=== PATIENT | female | born 1960 | race Caucasian/White ===

== ENCOUNTER → 2016-07-10 | Outpatient (CLI) | payer BC ==
--- NOTE | 2016-07-11 07:55 | MAMMOGRAPHY REPORT ---
BILATERAL DIGITAL SCREENING MAMMOGRAM TOMOSYNTHESIS WITH CAD: 07/10/2016 CLINICAL HISTORY: Routine screening. Patient has no complaints. TECHNIQUE: Breast tomosynthesis in addition to standard 2D mammography was performed. Current study was also evaluated with a Computer Aided Detection (CAD) system. COMPARISON: Comparison is made to exams dated: 06/06/2014 mammogram, 06/08/2015 mammogram, 12/10/2013 [place] mogram, 06/09/2013 ultrasound, 06/09/2013 mammogram, and 06/03/2013 mammogram - [facility]. BREAST COMPOSITION: The tissue of both breasts is heterogeneously dense, which may obscure small ma sses. FINDINGS: No suspicious masses, calcifications, or areas of architectural distortion are noted in e ither breast. There has been no significant interval change compared to prior exams. IMPRESSION: ACR BI-RADS CATEGORY 1: NEGATIVE There is no mammographic evidence of malignancy. A 1 year screening mammogram is recommended. The p atient will receive written notification of the results. Approximately 10% of breast cancers are not detected with mammography. A negative mammographic repor t should not delay biopsy if a clinically suggestive mass is present. Machelle Leos M.D. ah/:07/10/2016 16:03:07 Green Chain Worker: Ana KINGSLEY(R)(Jayesh), [facility] letter sent: Normal 1/2 BI-RADS Code: ACR BI-RADS Category 1: Negative
== END | disposition home or self-care (01) ==
LOC: C.MAMM 15:35
PROVIDERS: ATTEND Family Medicine
DX: Z12.31 Encounter for screening mammogram for malignant neoplasm of breast (principal)

== ENCOUNTER → 2017-07-11 | Outpatient (CLI) | payer OTHER ==
--- NOTE | 2017-07-11 15:37 | MAMMOGRAPHY REPORT ---
BILATERAL DIGITAL SCREENING MAMMOGRAM TOMOSYNTHESIS WITH CAD: 07/11/2017 CLINICAL HISTORY: Routine screening. TECHNIQUE: Breast tomosynthesis in addition to standard 2D mammography was performed. Current study was also evaluated with a Computer Aided Detection (CAD) system. COMPARISON: Comparison is made to exams dated: 07/10/2016 mammogram, 06/08/2015 mammogram, 06/06/2014 mamm ogram, 06/03/2013 mammogram, 06/02/2012 mammogram, and 05/29/2011 mammogram - [facility]. BREAST COMPOSITION: The tissue of both breasts is heterogeneously dense, which may obscure small mas ses. FINDINGS: No suspicious masses, calcifications, or areas of architectural distortion are noted in ei ther breast. There has been no significant interval change compared to prior exams. IMPRESSION: ACR BI-RADS CATEGORY 1: NEGATIVE There is no mammographic evidence of malignancy. A 1 year screening mammogram is recommended. The pa tient will receive written notification of the results. Approximately 10% of breast cancers are not detected with mammography. A negative mammographic report should not delay biopsy if a clinically suggestive mass is present. Machelle Leos M.D. /:07/11/2017 15:07:57 Director Oncology: Hai KINGSLEY(Ethan)(Jayesh), [facility] letter sent: Normal 1/2 BI-RADS Code: ACR BI-RADS Category 1: Negative
== END | disposition home or self-care (01) ==
LOC: C.MAMM 14:27
PROVIDERS: ATTEND Family Medicine
DX: Z12.31 Encounter for screening mammogram for malignant neoplasm of breast (principal)

== ENCOUNTER 2019-10-17 10:39 | Inpatient (IN) ==
[2019-10-17] MEDS ORDERED: SODIUM CHLORIDE 0.9% 1000ML 2,000 ML IV ONE (11:42)
[2019-10-17] MEDS ORDERED: ACETAMINOPHEN 500 MG TAB PO STA (11:42)
--- NOTE | 2019-10-17 11:43 | Emergency Department Note ---
Impression & Plan Sepsis, Cough, Fever, Headache, Obstruction of left ureteropelvic junction due to stone ED Provider Note NAME: SAUL KIRKLAND AGE: 59 SEX: F : 1960 ARRIVES VIA: Ambulance INFORMANT: Patient ED PROVIDER(S): Enoch Poole DO CHIEF COMPLAINT: Fever HPI: Patient is a 59-year-old female who presents the ER for fever. Her symptoms started this past Friday with a headache, chills, sore throat and a mild cough. This has been fairly persistent since Friday. She notes is when she noticed the elevation in her temperatures. She discussed with her PCP on Friday and had coronavirus testing which was negative. She denies any belly pain, dysuria, urgency or frequency. Denies any chest pain or shortness of breath. No ear pain. No runny nose. No loss of taste or smell. She has not been exposed to anyone with coronavirus. She [place] No tick bites that she can remember. She does have a cat. No history of Lyme disease. No other exacerbating or remitting factors. She also admits to persistent back pain since Friday. ROS: See above HPI for pertinent positives & negatives. A total of 10 systems reviewed and were otherwise negative. PAST MEDICAL HISTORY:See Below PAST SURGICAL HISTORY:See Below FAMILY HISTORY:See Below SOCIAL HISTORY:See Below HOME MEDICATIONS:See Below ALLERGIES:See Below VITALS:See Below PHYSICAL EXAMINATION: GENERAL: Sitting up in bed, alert, well appearing, well nourished, no distress, non-toxic EYE EXAM: normal conjunctiva. PERRL and EOM's grossly intact. OROPHARYNX: no exudate, no erythema, lips, buccal mucosa, and tongue normal and mucous membranes are moist NECK: supple, no nuchal rigidity, no adenopathy, non-tender LUNGS: Clear to auscultation. Normal chest wall mechanics HEART: no murmurs, S1 normal and S2 normal ABDOMEN: abdomen soft, non-tender, normo-active bowel sounds, no masses, no rebound or guarding. BACK: Back is symmetrical on inspection and there is no deformity, no midline tenderness, no CVA tenderness. SKIN: no rashes and no bruising UPPER EXTREMITIES: upper extremities are grossly normal. LOWER EXTREMITIES: No pitting edema. NEURO EXAM: Normal sensorium, cranial nerves II-XII grossly intact, normal speech, no gross weakness of arms, no gross weakness of legs. MEDICAL DECISION MAKING: Patient is a 59-year-old female who presents the ER for fevers, headache, sore throat and cough with a recent negative COVID. IV was established blood work was obtained. Patient was given IV fluids, IV Rocephin. Labs show a leukopenia at 3.5 thousand. Mild anemia. INR was unremarkable. BMP with a potassium of 3.3. CO2 slightly low at 20. Mild transaminitis. Troponin was detectable but not positive. Pro-Moris was elevated at 1.8. UA does show a clear UTI with nitrites, whites, leukocytes and bacteria. CT of the abdomen pelvis was then performed and showed a stone. Discussed with urology. Discussed with the hospitalist. Patient was taken directly to the OR. Viral panel was initially obtained as I was favoring that this was likely URI. She had no severe pain to suggest that she had a kidney stone. She was fairly stoic. Triage Nursing notes reviewed. Prior medical records reviewed Vital Signs: reviewed and remarkable for fever, tachycardia Differential diagnosis: Differential diagnosis includes etiologies such as sepsis, UTI, pneumonia, metabolic, electrolyte abnormalities, cardiac sources, intracerebral event, toxicologic, neurological, as well as others were entertained. ER treatment provided: See below Diagnostics interpreted by me: ECG: Sinus tachycardia rate of 1 1 Normal axis No PVCs Normal QTC Cardiac Monitoring: An order was placed for continuous cardiac monitoring. The monitor shows a rate of 105 with sinus rhythm. Laboratory studies: As stated above and show below. Imaging studies: CT head was clean. Chest x-ray was unremarkable CT abdomen pelvis shows hydronephrosis with 5 mm stone. Consultation(s): Discussed with [facility] hospitalist Discussed with Dr. Lemus from urology ED COURSE: Procedures: none Critical Care: I have personally spent 32 minutes of critical care time in the direct management of this patient. This includes bedside care, interpretation of di agnostic studies, and testing, discussion with consultants, patient, and family members, and other required patient management activities. This 32 minutes is in excess of all separately billable procedures. 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: No Beliefs That Will Affect Care: None Current Living Situation: Spouse and Family Other Information That Helps Us Care for You: No Feels Safe at Home: Yes Safety Concerns: Feels Safe At This Time Smoking Status: Former smoker Tobacco Type: cigarettes ; Do You Dip or Chew Tobacco: No ; Second Hand Exposure: No ; Hx Alcohol Use: Yes Alcohol type: beer, wine and hard liquor Hx Substance Use: No Allergies Allergies Allergy/AdvReac Type Severity Reaction Status Date / Time No Known Allergies Allergy Verified 05/20/02 19:29 Home Meds Home Medications Medication Instructions Recorded Confirmed acetaminophen [Tylenol Extra 500 mg PO Q6H PRN 10/17/19 10/17/19 Strength] alfalfa 0 mg PO BID 10/17/19 10/17/19 ascorbic acid (vitamin C) [Vitamin 0 mg PO QAM 10/17/19 10/17/19 C] calcium carbonate [Calcium 500] 0 mg PO 10/17/19 10/17/19 cholecalciferol (vitamin D3) 0 mcg PO QAM 10/17/19 10/17/19 [Vitamin D3] cyanocobalamin (vitamin B-12) 0 mcg PO QAM 10/17/19 10/17/19 [Vitamin B-12] fluticasone propionate [Flonase 1 spray INTRANASAL QA 10/17/19 10/17/19 Allergy Relief] losartan 25 mg PO 10/17/19 10/17/19 multivitamin 1 tab PO QA 10/17/19 10/17/19 omega 3-btn-yzu-fish oil [Fish Oil] 1 cap PO 10/17/19 10/17/19 pravastatin 40 mg PO 10/17/19 10/17/19 zinc 50 mg PO QA 10/17/19 10/17/19 Results & Data (ED) Vital Signs Vital Signs - 24 hr 10/17/19 11:05 10/17/19 11:31 10/17/19 12:00 Temperature 39.2 C H Temperature Source Oral Pulse Rate 103 H 100 H Pulse Rate [Apical] Pulse Rate from SpO2 Sensor Pulse Rhythm [Apical] Respiratory Rate 20 25 H Respiratory Effort / Characteristics Respiratory Depth Blood Pressure 122/73 Blood Pressure [Left Arm] Blood Pressure Mean 89 Blood Pressure Mean [Left Arm] Pulse Oximetry 94 95 Oxygen Delivery Method Room Air Room Air Sepsis Recent Fever Within 48 Hours Yes Sepsis New/Unexplained Change in Mental Status No Sepsis Action Taken by Nursing No Action Required 10/17/19 12:42 10/17/19 12:59 10/17/19 13:34 Temperature Temperature Source Pulse Rate 88 Pulse Rate [Apical] 99 H 94 H Pulse Rate from SpO2 Sensor 89 Pulse Rhythm [Apical] Regular Respiratory Rate 18 18 20 Respiratory Effort / Characteristics Non-Labored Spontaneous Respiratory Depth Normal Blood Pressure 123/75 Blood Pressure [Left Arm] 124/71 119/74 Blood Pressure Mean 90 Blood Pressure Mean [Left Arm] 88 89 Pulse Oximetry 95 96 96 Oxygen Delivery Method Room Air Room Air Room Air Sepsis Recent Fever Within 48 Hours Sepsis New/Unexplained Change in Mental Status Sepsis Action Taken by Nursing 10/17/19 14:00 Temperature Temperature Source Pulse Rate Pulse Rate [Apical] 86 Pulse Rate from SpO2 Sensor Pulse Rhythm [Apical] Respiratory Rate 18 Respiratory Effort / Characteristics Respiratory Depth Blood Pressure Blood Pressure [Left Arm] 111/68 Blood Pressure Mean Blood Pressure Mean [Left Arm] 82 Pulse Oximetry 97 Oxygen Delivery Method Room Air Sepsis Recent Fever Within 48 Hours Sepsis New/Unexplained Change in Mental Status Sepsis Action Taken by Nursing Laboratory Data Result diagrams: 10/17/19 11:00 10/17/19 11:00 Lab Results 10/17/19 10/17/19 10/17/19 Range/Units 11:00 11:00 11:00 WBC 3.57 L (4.8-10.8) K/uL RBC 3.83 L (4.2-5.4) M/uL Hgb 11.6 L (12.0-16.0) g/dL Hct 35.6 L (37-47) % MCV 93.0 (80-100) fL MCH 30.3 (25-34) pg MCHC 32.6 (32-36) g/dL RDW Std Deviation 48.6 H (36.4-46.3) fL RDW Coeff of Emmnauelle 14.2 (11.5-14.5) % Plt Count 181 (130-400) K/uL MPV 10.0 (7.4-10.4) fL Immature Gran % (Auto) 2.5 % Neut % (Auto) 85.1 % Lymph % (Auto) 8.7 % [place] % (Auto) 2.8 % Eos % (Auto) 0.6 % Baso % (Auto) 0.3 % Neut # (Auto) 3.04 (1.4-6.5) K/uL Lymph # (Auto) 0.31 L (1.2-3.4) K/uL [place] # (Auto) 0.10 L (0.11-0.59) K/uL Eos # (Auto) 0.02 (0-0.5) K/uL Baso # (Auto) 0.01 (0-0.2) K/uL Immature Gran # (Auto) 0.09 H (0.00-0.02) K/uL Dohle Bodies 1+ PT 11.4 (9.0-12.0) Seconds INR 1.1 (0.9-1.1) APTT 27.7 (21.0-31.0) Seconds PTT Ratio 1.0 Sodium 138 (136-145) mmol/L Potassium 3.3 L (3.5-5.1) mmol/L Chloride 110 H (98-107) mmol/L Carbon Dioxide 20 L (21-32) mmol/L Anion Gap 8.0 (3-11) BUN 17 (7-18) mg/dl Creatinine 1.00 (0.6-1.2) mg/dl Est Cr Clr Drug Dosing 73.5 ml/min Est GFR ( Amer) 72.4 Est GFR (Non-Af Amer) 62.5 BUN/Creatinine Ratio 16.9 (10-20) Glucose 109 H (70-99) mg/dl Lactate (0.4-2.0) mmol/L Calcium 8.3 L (8.5-10.1) mg/dl Magnesium 1.6 L (1.8-2.4) mg/dl Total Bilirubin 0.7 (0.2-1) mg/dl AST 77 H (15-37) U/L ALT 105 H (12-78) U/L Alkaline Phosphatase 199 H (45-117) U/L Troponin I 0.038 (0-0.045) ng/ml Total Protein 6.8 (6.4-8.2) gm/dl Albumin 2.6 L (3.4-5.0) gm/dl Globulin 4.2 H (2.5-4.0) gm/dl Albumin/Globulin Ratio 0.6 L (0.9-2) Procalcitonin (0-0.5) ng/ml Urine Color Urine Appearance (Clear) Urine pH (4.5-7.5) Ur Specific [place] (1.000-1.030) Urine Protein (Negative) Urine Glucose (UA) (Negative) Urine Ketones (Negative) Urine Blood (Negative) Urine Nitrite (Negative) Urine Bilirubin (Negative) Urine Urobilinogen (Negative) Ur Leukocyte Esterase (Negative) Urine WBC (Auto) (0-5) /hpf Urine RBC (Auto) (0-4) /hpf U Hyaline Cast (Auto) (0-5) /lpf U Epithel Cells (Auto) (0-5) /lpf Urine Bacteria (Auto) (Negative) Adenovirus (PCR) (NotDetected) Anaplasma Smear See Comment B. pertussis DNA (PCR) (NotDetected) B.parapertussis DNA PCR (NotDetected) Lyme Disease IgG Ab (Negative) Lyme Disease IgM Ab (Negative) C. pneumoniae DNA (PCR) (NotDetected) Coronavirus OC43 (PCR) (NotDetected) Coronavirus HKU1 (PCR) (NotDetected) Coronavirus 229E (PCR) (NotDetected) Coronavirus NL63 (PCR) (NotDetected) Human Metapneumovir PCR (NotDetected) Influenza Type A (PCR) (NotDetected) Influenza Type B (PCR) (NotDetected) M. pneumoniae (PCR) (NotDetected) Parainfluenza 1 (PCR) (NotDetected) Parainfluenza 2 (PCR) (NotDetected) Parainfluenza 3 (PCR) (NotDetected) Parainfluenza 4 (PCR) (NotDetected) RSV (PCR) (NotDetected) Entero/Rhino (PCR) (NotDetected) 10/17/19 10/17/19 10/17/19 Range/Units 11:00 12:00 12:36 WBC (4.8-10.8) K/uL RBC (4.2-5.4) M/uL Hgb (12.0-16.0) g/dL Hct (37-47) % MCV (80-100) fL MCH (25-34) pg MCHC (32-36) g/dL RDW Std Deviation (36.4-46.3) fL RDW Coeff of Emmanuelle (11.5-14.5) % Plt Count (130-400) K/uL MPV (7.4-10.4) fL Immature Gran % (Auto) % Neut % (Auto) % Lymph % (Auto) % [place] % (Auto) % Eos % (Auto) % Baso % (Auto) % Neut # (Auto) (1.4-6.5) K/uL Lymph # (Auto) (1.2-3.4) K/uL [place] # (Auto) (0.11-0.59) K/uL Eos # (Auto) (0-0.5) K/uL Baso # (Auto) (0-0.2) K/uL Immature Gran # (Auto) (0.00-0.02) K/uL Dohle Bodies PT (9.0-12.0) Seconds INR (0.9-1.1) APTT (21.0-31.0) Seconds PTT Ratio Sodium (136-145) mmol/L Potassium (3.5-5.1) mmol/L Chloride (98-107) mmol/L Carbon Dioxide (21-32) mmol/L Anion Gap (3-11) BUN (7-18) mg/dl Creatinine (0.6-1.2) mg/dl Est Cr Clr Drug Dosing ml/min Est GFR ( Amer) Est GFR (Non-Af Amer) BUN/Creatinine Ratio (10-20) Glucose (70-99) mg/dl Lactate 1.1 (0.4-2.0) mmol/L Calcium (8.5-10.1) mg/dl Magnesium (1.8-2.4) mg/dl Total Bilirubin (0.2-1) mg/dl AST (15-37) U/L ALT (12-78) U/L Alkaline Phosphatase (45-117) U/L Troponin I (0-0.045) ng/ml Total Protein (6.4-8.2) gm/dl Albumin (3.4-5.0) gm/dl Globulin (2.5-4.0) gm/dl Albumin/Globulin Ratio (0.9-2) Procalcitonin 1.81 H (0-0.5) ng/ml Urine Color Urine Appearance (Clear) Urine pH (4.5-7.5) Ur Specific [place] (1.000-1.030) Urine Protein (Negative) Urine Glucose (UA) (Negative) Urine Ketones (Negative) Urine Blood (Negative) Urine Nitrite (Negative) Urine Bilirubin (Negative) Urine Urobilinogen (Negative) Ur Leukocyte Esterase (Negative) Urine WBC (Auto) (0-5) /hpf Urine RBC (Auto) (0-4) /hpf U Hyaline Cast (Auto) (0-5) /lpf U Epithel Cells (Auto) (0-5) /lpf Urine Bacteria (Auto) (Negative) Adenovirus (PCR) Not Detected (NotDetected) Anaplasma Smear B. pertussis DNA (PCR) Not Detected (NotDetected) B.parapertussis DNA PCR Not Detected (NotDetected) Lyme Disease IgG Ab Negative (Negative) Lyme Disease IgM Ab Negative (Negative) C. pneumoniae DNA (PCR) Not Detected (NotDetected) Coronavirus OC43 (PCR) Not Detected (NotDetected) Coronavirus HKU1 (PCR) Not Detected (NotDetected) Coronavirus 229E (PCR) Not Detected (NotDetected) Coronavirus NL63 (PCR) Not Detected (NotDetected) Human Metapneumovir PCR Not Detected (NotDetected) Influenza Type A (PCR) Not Detected (NotDetected) Influenza Type B (PCR) Not Detected (NotDetected) M. pneumoniae (PCR) Not Detected (NotDetected) Parainfluenza 1 (PCR) Not Detected (NotDetected) Parainfluenza 2 (PCR) Not Detected (NotDetected) Parainfluenza 3 (PCR) Not Detected (NotDetected) Parainfluenza 4 (PCR) Not Detected (NotDetected) RSV (PCR) Not Detected (NotDetected) Entero/Rhino (PCR) Not Detected (NotDetected) 10/17/19 Range/Units 12:50 WBC (4.8-10.8) K/uL RBC (4.2-5.4) M/uL Hgb (12.0-16.0) g/dL Hct (37-47) % MCV (80-100) fL MCH (25-34) pg MCHC (32-36) g/dL RDW Std Deviation (36.4-46.3) fL RDW Coeff of Emmanuelle (11.5-14.5) % Plt Count (130-400) K/uL MPV (7.4-10.4) fL Immature Gran % (Auto) % Neut % (Auto) % Lymph % (Auto) % [place] % (Auto) % Eos % (Auto) % Baso % (Auto) % Neut # (Auto) (1.4-6.5) K/uL Lymph # (Auto) (1.2-3.4) K/uL [place] # (Auto) (0.11-0.59) K/uL Eos # (Auto) (0-0.5) K/uL Baso # (Auto) (0-0.2) K/uL Immature Gran # (Auto) (0.00-0.02) K/uL Dohle Bodies PT (9.0-12.0) Seconds INR (0.9-1.1) APTT (21.0-31.0) Seconds PTT Ratio Sodium (136-145) mmol/L Potassium (3.5-5.1) mmol/L Chloride (98-107) mmol/L Carbon Dioxide (21-32) mmol/L Anion Gap (3-11) BUN (7-18) mg/dl Creatinine (0.6-1.2) mg/dl Est Cr Clr Drug Dosing ml/min Est GFR ( Amer) Est GFR (Non-Af Amer) BUN/Creatinine Ratio (10-20) Glucose (70-99) mg/dl Lactate (0.4-2.0) mmol/L Calcium (8.5-10.1) mg/dl Magnesium (1.8-2.4) mg/dl Total Bilirubin (0.2-1) mg/dl AST (15-37) U/L ALT (12-78) U/L Alkaline Phosphatase (45-117) U/L Troponin I (0-0.045) ng/ml Total Protein (6.4-8.2) gm/dl Albumin (3.4-5.0) gm/dl Globulin (2.5-4.0) gm/dl Albumin/Globulin Ratio (0.9-2) Procalcitonin (0-0.5) ng/ml Urine Color Dark Yellow Urine Appearance Cloudy A (Clear) Urine pH 5.5 (4.5-7.5) Ur Specific [place] 1.017 (1.000-1.030) Urine Protein 2+ H (Negative) Urine Glucose (UA) Negative (Negative) Urine Ketones Negative (Negative) Urine Blood 2+ H (Negative) Urine Nitrite Positive A (Negative) Urine Bilirubin Negative (Negative) Urine Urobilinogen Negative (Negative) Ur Leukocyte Esterase 2+ H (Negative) Urine WBC (Auto) >30 H (0-5) /hpf Urine RBC (Auto) 5-10 H (0-4) /hpf U Hyaline Cast (Auto) 5-10 H (0-5) /lpf U Epithel Cells (Auto) 5-10 H (0-5) /lpf Urine Bacteria (Auto) 4+ H (Negative) Adenovirus (PCR) (NotDetected) Anaplasma Smear B. pertussis DNA (PCR) (NotDetected) B.parapertussis DNA PCR (NotDetected) Lyme Disease IgG Ab (Negative) Lyme Disease IgM Ab (Negative) C. pneumoniae DNA (PCR) (NotDetected) Coronavirus OC43 (PCR) (NotDetected) Coronavirus HKU1 (PCR) (NotDetected) Coronavirus 229E (PCR) (NotDetected) Coronavirus NL63 (PCR) (NotDetected) Human Metapneumovir PCR (NotDetected) Influenza Type A (PCR) (NotDetected) Influenza Type B (PCR) (NotDetected) M. pneumoniae (PCR) (NotDetected) Parainfluenza 1 (PCR) (NotDetected) Parainfluenza 2 (PCR) (NotDetected) Parainfluenza 3 (PCR) (NotDetected) Parainfluenza 4 (PCR) (NotDetected) RSV (PCR) (NotDetected) Entero/Rhino (PCR) (NotDetected) Administered Medications Sodium Chloride (Nss 1000ml) 1,000 mls @ 125 mls/hr IV .Q8H JEANETTE Stop: 11/16/19 16:34 Last Admin: 07/12/20 16:58 Dose: 125 mls/hr Documented by: [id number] Doxycycline Hyclate 100 mg/ (Dextrose) 110 mls @ 50 mls/hr IV Q12H JEANETTE Stop: 10/19/19 16:59 Last Admin: 10/17/19 17:19 Dose: 50 mls/hr Documented by: [id number] Ioversol (Optiray 320 100ml) 93 ml IV ONCE PRN PRN Reason: Interaction Checking Stop: 10/21/19 14:21 Last Admin: 10/17/19 14:23 Dose: 93 ml Documented by: [id number] Discontinued Medications Acetaminophen (Tylenol) 1,000 mg PO NOW STA Stop: 10/17/19 11:43 Last Admin: 10/17/19 11:59 Dose: 1,000 mg Documented by: [id number] Doxycycline Hyclate (Vibramycin) 100 mg PO NOW STA Stop: 10/17/19 14:16 Last Admin: 10/17/19 15:07 Dose: Not Given Documented by: [id number] Sodium Chloride (Nss 1000ml) 2,000 mls @ 999 mls/hr IV .Q2H1M ONE Stop: 10/17/19 13:42 Last Infusion: 10/17/19 14:19 Dose: 0 mls/hr Documented by: [id number] Admin: 10/17/19 11:59 Dose: 999 mls/hr Documented by: [id number] Ceftriaxone Sodium (Rocephin) 1,000 mg in 50 mls @ 100 mls/hr IV NOW STA Stop: 10/17/19 13:49 Last Infusion: 10/17/19 13:59 Dose: 0 mls/hr Documented by: [id number] Admin: 10/17/19 13:25 Dose: 100 mls/hr Documented by: [id number] Piperacillin Sod/Tazobactam Sod (Zosyn) 4.5 gm in 120 mls @ 240 mls/hr IV ONE ONE Stop: 10/17/19 15:29 Last Infusion: 10/17/19 17:10 Dose: 0 mls/hr Documented by: [id number] Admin: 10/17/19 15:06 Dose: 240 mls/hr Documented by: [id number] Iohexol (Omnipaque) Confirm Administered Dose 20 ml INSTIL .STK-MED ONE Stop: 10/17/19 15:09 Last Admin: 10/17/19 15:40 Dose: 10 ml Documented by: [id number] Discharge Plan Visit Data *Final* Discharge Date/Time: 10/17/19 15:10 Chief Complaint: Illness Stated Complaint: ILLNESS ED Provider: Enoch Poole Discharge Problem: Sepsis, Cough, Fever, Headache, Obstruction of left ureteropelvic junction due to stone Patient Disposition: Admitted As Inpatient Discharge Instructions Interventions: ED Discharge Assessment Last Done: 10/17/19 15:10 Discharge Problem: Sepsis Qualifiers: Sepsis type: sepsis due to unspecified organism Sepsis acute organ dysfunction status: unspecified Qualified Code(s): A41.9 - Sepsis, unspecified organism Fever Qualifiers: Fever type: unspecified Qualified Code(s): R50.9 - Fever, unspecified Headache Qualifiers: Headache type: unspecified Headache chronicity pattern: unspecified pattern Intractability: not intractable Qualified Code(s): R51 - Headache
--- NOTE | 2019-10-17 11:58 | XRay Report ---
XR chest 1V portable CLINICAL HISTORY: SEPSIS COMPARISON STUDY: No previous studies for comparison. FINDINGS: The heart is normal in size. There is no failure. There is no lobar consolidation. There is slight prominence of basilar markings likely atelectatic. No pleural effusions are visualized.[ IMPRESSION: No active disease in the chest. ACT 112: Negative or not required by law. Electronically signed by: Haroldo Andrade M.D. 10/17/2019 11:56 AM
[2019-10-17 12:04] LABS: Basophils # (auto) 0.01 K/uL (0-0.2); Basophils % (auto) 0.3 %; Eosinophils # (auto) 0.02 K/uL (0-0.5); Eosinophils % (auto) 0.6 %; Hematocrit (blood only) 35.6 % (37-47); Hemoglobin 11.6 g/dL (12.0-16.0); Immature Granulocytes # (auto) 0.09 K/uL (0.00-0.02); Immature Granulocytes % (auto) 2.5 %; Lymphocytes # (auto) 0.31 K/uL (1.2-3.4); Lymphocytes % (auto) 8.7 %; Mean Corpuscular Hemoglobin 30.3 pg (25-34); Mean Corpuscular Hgb Conc 32.6 g/dL (32-36); Monocytes % (auto) 2.8 %; Neutrophils # (auto) 3.04 K/uL (1.4-6.5); Neutrophils % (auto) 85.1 %; Platelet Count 181 K/uL (130-400); RDW Coefficient of Variation 14.2 % (11.5-14.5); RDW Standard Deviation 48.6 fL (36.4-46.3); Red Blood Count 3.83 M/uL (4.2-5.4); White Blood Count 3.57 K/uL (4.8-10.8)
[2019-10-17 12:12] LABS: Albumin Level 2.6 gm/dl (3.4-5.0); BUN Creatinine Ratio 16.9 (10-20); Calcium 8.3 mg/dl (8.5-10.1); Creatinine Clr Calc Pharmacy 73.5 ml/min; Est GFR (African American) 72.4; Est GFR (Non-African American) 62.5; Magnesium 1.6 mg/dl (1.8-2.4); Potassium 3.3 mmol/L (3.5-5.1)
[2019-10-17 12:17] LABS: Albumin Globulin Ratio 0.6 (0.9-2); Bilirubin,Total 0.7 mg/dl (0.2-1); Globulin 4.2 gm/dl (2.5-4.0); Total Protein 6.8 gm/dl (6.4-8.2); Troponin I 0.038 ng/ml (0-0.045)
[2019-10-17 12:18] LABS: INR 1.1 (0.9-1.1); Partial Thromboplastin Time 27.7 Seconds (21.0-31.0); Prothrombin Time 11.4 Seconds (9.0-12.0)
--- NOTE | 2019-10-17 12:27 | CT Scan Report ---
CT head/brain wo con CLINICAL HISTORY: Headache and fever COMPARISON STUDY: No previous studies for comparison. TECHNIQUE: Axial CT of the brain is performed from the vertex to the skull base. IV contrast was not administered for this examination. A dose lowering technique was utilized adhering to the principles of ALARA. CT DOSE: 537.48 mGy.cm FINDINGS: No intra or extra-axial mass lesions are visualized. There is no CT evidence of acute cortical infarc tion. There is no evidence of midline shift. There is no acute hemorrhage. No calvarial fractures ar e visualized. There is no evidence of pathologic ventricular dilatation. There is no evidence of acute sinusitis. There are postsurgical changes of a left orbital banding pro cedure IMPRESSION: No acute intracranial findings ACT 112: Negative or not required by law. Electronically signed by: Haroldo Andrade M.D. 10/17/2019 12:26 PM
[2019-10-17 12:36] LABS: Procalcitonin 1.81 ng/ml (0-0.5)
[2019-10-17 12:43] LABS: Lyme Ab IgG w/WB Rflx Negative (Negative)
[2019-10-17 12:44] LABS: Lyme Ab IgM w/WB Rflx Negative (Negative)
[2019-10-17 12:58] LABS: Appearance Urine Cloudy (Clear); Bacteria Urine Automated 4+ (Negative); Bilirubin Urine Negative (Negative); Blood Urine 2+ (Negative); Color Urine Dark Yellow; Glucose Urine UA Negative (Negative); Ketones Urine Negative (Negative); Leukocyte Esterase Urine 2+ (Negative); Nitrite Urine Positive (Negative); Protein Urine 2+ (Negative); Specific Gravity Urine 1.017 (1.000-1.030); Urobilinogen Urine Negative (Negative); WBC Urine Automated >30 /hpf (0-5); pH Urine 5.5 (4.5-7.5)
[2019-10-17 13:09] LABS: Adenovirus PCR Not Detected (NotDetected); Bordetella parapertussis PCR Not Detected (NotDetected); Bordetella pertussis PCR Not Detected (NotDetected); Chlamydia pneumoniae PCR Not Detected (NotDetected); Coronavirus 229E PCR Not Detected (NotDetected); Coronavirus HKU1 PCR Not Detected (NotDetected); Coronavirus NL63 PCR Not Detected (NotDetected); Coronavirus OC43PCR Not Detected (NotDetected); Human Metapneumovirus PCR Not Detected (NotDetected); Influenza A PCR Not Detected (NotDetected); Influenza B PCR Not Detected (NotDetected); Mycoplasma pneumoniae PCR Not Detected (NotDetected); Parainfluenza Virus 1 PCR Not Detected (NotDetected); Parainfluenza Virus 2 PCR Not Detected (NotDetected); Parainfluenza Virus 3 PCR Not Detected (NotDetected); Parainfluenza Virus 4 PCR Not Detected (NotDetected); Respiratory Syncytial VirusPCR Not Detected (NotDetected); Rhinovirus/Enterovirus PCR Not Detected (NotDetected)
[2019-10-17] MEDS ORDERED: cefTRIAXone SODIUM 1,000 MG/50 ML BAG IV STA (13:20)
[2019-10-17 14:02] LABS: Dohle Bodies 1+
[2019-10-17] MEDS ORDERED: DOXYCYCLINE HYCLATE 100 MG CAP PO STA (14:15)
[2019-10-17] MEDS ORDERED: IOVERSOL 100ml IV PRN (14:22)
--- NOTE | 2019-10-17 14:38 | CT Scan Report ---
CT abd pelvis IV con only CLINICAL HISTORY: Flank pain. Possible pyelonephritis COMPARISON STUDY: None. TECHNIQUE: Patient was scanned in a dynamic helical fashion during intravenous administration of 93 c c of Optiray 320 A dose lowering technique was utilized adhering to the principles of ALARA. CT DOSE: 710.87 mGy.cm FINDINGS: Lower chest: There are basilar atelectatic changes. There is mild subpleural interstitial thickening. There is a 7 mm subpleural right lower lobe pulmonary nodule. There is a small left pleural effusion . Liver: There is a 3 cm left lobe hepatic cyst. The hepatic and portal veins appear patent. Gallbladder: Unremarkable. Spleen: Top normal in size Pancreas: Unremarkable. Adrenal glands: Unremarkable. Kidneys: There is a diminished left-sided nephrogram. There is a 5 mm lower pole left renal calculus. There is left-sided hydronephrosis. There is a 5 mm obstructing proximal left ureteral calculus. The re is a 19 mm upper pole left renal hypodensity which slightly exceeds water attenuation and is there fore indeterminate. Bowel: There are no transition zones indicate bowel obstruction. There is no evidence of acute divert iculitis. There are fluid-filled small bowel loops possibly representing a mild ileus. There is no ev idence of acute appendicitis. Peritoneum: There is no intraperitoneal free air or abdominal ascites. There is tiny fat-containing u mbilical hernia Vasculature: The abdominal aorta is normal in course and caliber. Adenopathy: None. Pelvic viscera: The bladder, and pelvic viscera are unremarkable. Skeletal structures: No destructive osseous lesions are seen. IMPRESSION: 1. 5 mm proximal left ureteral calculus with secondary obstructive changes 2. 5 mm lower pole left renal calculus 3. 19 mm upper pole left renal hypodensity which slightly exceeds water attenuation and is therefore indeterminate 4. 7 mm right lower lobe subpleural pulmonary nodule. A 6-12 month follow-up is recommended. Please refer to below summary of Fleischner criteria recommendations for follow-up of incidental CT n odules (Kennedy Greene, Guidelines for management of small pulmonary nodules detected on CT scans: A sta tement from the Fleischner Society, Radiology 237: [phone].) SOLID NODULES Solitary nodule size: <6 mm * low risk patients: no follow-up needed * high risk patients: optional CT at 12 months Solitary nodule size: 6-8 mm * low risk patients: follow-up at 6-12 months, then consider further follow-up at 18-24 months * high risk patients: initial follow-up CT at 6-12 months and then at 18-24 months if no change Solitary nodule size: >8 mm * either low or high risk patients - consider follow-up CT at 3 months, and/or CT-PET, and/or biopsy Multiple nodules size: <6 mm * low risk patients: no routine follow-up * high risk patients: optional CT at 12 months Multiple nodules size: 6-8 mm * low risk patients: follow-up at 3-6 months, then consider further follow-up at 18-24 months * high risk patients: follow-up at 3-6 months, then at 18-24 months if no change Multiple nodules size: >8 mm * low risk patients: follow-up at 3-6 months, then consider further follow-up at 18-24 months * high risk patients: follow-up at 3-6 months, then at 18-24 months if no change Note: newly detected indeterminate nodule in persons 35 years of age or older. * low risk patients: minimal or absent history of smoking and/or other known risk factors * high risk patients: history of smoking or of other known risk factors (e.g. first degree relative with lung cancer, or exposure to asbestos, radon, uranium) * if a nodule up to 8 mm is partly solid or is ground glass further follow-up is required after 24 m onths to exclude possible slow growing adenocarcinoma (AZEEM) SUBSOLID NODULES Solitary pure ground-glass nodule * nodule size <6 mm - no CT follow-up required * nodule size >=6 mm - follow-up CT at 6-12 months, then every 2 years until 5 years Solitary part-solid nodule * nodule size <6 mm - no CT follow-up required * nodule size >=6 mm - follow-up CT at 3-6 months. If unchanged, and solid component remains <6 mm, then annual follow-up for 5 years Multiple subsolid nodules * nodule size <6 mm - follow-up CT at 3-6 months, consider further follow-up at 2 and 4 years if sta ble * nodule size >=6 mm - follow-up CT at 3-6 months, subsequent management based on the most suspiciou s nodule(s) ACT 112: Negative or not required by law. Electronically signed by: Haroldo Andrade M.D. 10/17/2019 2:37 PM
[2019-10-17] MEDS ORDERED: PIPERACILL/TAZOBAC CONSULT ACTIVE PRN (14:47)
[2019-10-17] MEDS ORDERED: ONDANSETRON INJ 2 MG/ML 2 ML VIAL IV PRN ×2 (14:53→16:02)
--- NOTE | 2019-10-17 14:54 | Urology Consultation ---
Date of Consultation October 17, 2019 Assessment & Plan (1) Sepsis: Patient presented ER acutely ill with high fevers. Patient underwent emergent assessment and found to have an obstructing proximal/UPJ stone on the left with considerable hydronephrosis and signs of pyelonephritis. Patient's urine is grossly infected. Patient is having high fevers up to 39.2. Discussed major concerns for sepsis and development of severe pyelonephritis. Discussed other concerns and issues. Discussed patient's stone and family and medical surgical history. Discussed other problems and issues. Discussed urinary problems. Discussed need for urgent/emergent stent for drainage of pyelonephrosis and a cute possibly critical management management for sepsis with obstructing stone. Risks and benefits discussed at length for procedure. These include bleeding, infection, injury to surrounding tissues or organs, and risks associated with anesthesia. Patient states understanding and agrees to proceed. Will sign consent and schedule. Patient is going to be transferred from the ER to the operating room to undergo stent placement on left with cystoscopy (2) Obstruction of left ureteropelvic junction due to stone: History of Present Illness History of Present Illness New consultation for patient with UTI/Pyelo, discomfort, and ill feelings. Acutely ill with a high fever and on abdominal imaging found to have an obstructing left stone with hydro-and likely pyelonephritis. Patient developed sudden onset of pain into flank going down and radiating into groin and back in waves comes and goes. Can be severe at times. Patient was tested on Friday for COVID which was found to be negative Discussed and reviewed patient's family history for any history of issues, infections, and disease. No significant abnormality family history. Father had kidney stones. Also, discussed patient's medical/surgery history especially related to any history of urinary issues or stone disease. Patient was admitted and is undergoing observation with broad spectrum IV antibiotics. Allergies Allergy/AdvReac Type Severity Reaction Status Date / Time No Known Allergies Allergy Verified 05/20/02 19:29 Home Medications Home Medications Medication Instructions Recorded Confirmed Type acetaminophen [Tylenol Extra 500 mg PO Q6H PRN 10/17/19 10/17/19 History Strength] alfalfa 0 mg PO BID 10/17/19 10/17/19 History ascorbic acid (vitamin C) [Vitamin 0 mg PO QAM 10/17/19 10/17/19 History C] calcium carbonate [Calcium 500] 0 mg PO HS 10/17/19 10/17/19 History cholecalciferol (vitamin D3) 0 mcg PO QAM 10/17/19 10/17/19 History [Vitamin D3] cyanocobalamin (vitamin B-12) 0 mcg PO QAM 10/17/19 10/17/19 History [Vitamin B-12] fluticasone propionate [Flonase 1 spray INTRANASAL QA 10/17/19 10/17/19 History Allergy Relief] losartan 25 mg PO 10/17/19 10/17/19 History multivitamin 1 tab PO QAM 10/17/19 10/17/19 History omega 7-ird-ezw-fish oil [Fish Oil] 1 cap PO 10/17/19 10/17/19 History pravastatin 40 mg PO 10/17/19 10/17/19 History zinc 50 mg PO QAM 10/17/19 10/17/19 History Patient History Social History Feels Safe at Home: Yes Smoking Status: Never smoker Review of Systems Review of Systems: All systems reviewed & are unremarkable except as noted in HPI & below Physical Exam Physical Exam: General: Alert and oriented x 3. Patient is acutely ill with fever HEENT: Normocephalic Atraumatic. Inspection normal. Cranial Nerves 2-12 Grossly intact. Nares are clear. Neck is supple. Normal inspection of face. Normal inspection of neck. Neurologic: No deficits on inspection. Baseline for motor function and sensory. Psychologic: Normal affect. Respiratory: Nonlabored. No use of accessory muscles. No tachypnea or dyspnea. Cardiovascular: No tachycardia Skin: [place] and Dry. No rashes or visible lesions. Extremities: Moving without issues. No motor deficits on inspection Lymphatics: No edema Abdomen: Obese. Mildly distended. No acites. No rebound or guarding. Results & Data Vital Signs (Past 12 Hours) Vital Signs Temp Pulse Pulse Resp BP BP Pulse Ox 10/17/19 14:00 86 18 111/68 97 10/17/19 13:34 88 20 123/75 96 10/17/19 12:59 94 H 18 119/74 96 10/17/19 12:42 99 H 18 124/71 95 10/17/19 12:00 100 H 25 H 10/17/19 11:31 95 10/17/19 11:05 39.2 C H 103 H 20 122/73 94 PG Care Time/CCT Total # of Minutes Spent Total Time Spent with Patient: Total time spent is greater than 50% in coordination of care (as documented) at patient's floor/unit and/or counseling patient: Coding Level of Care Code 83823 Inpt Consult Level 5 Diagnoses Sepsis A41.9 Obstruction of left ureteropelvic junction due to stone N20.1
--- NOTE | 2019-10-17 14:54 | History & Physical Report ---
Date of Service October 17, 2019 Assessment & Plan (1) Sepsis: (2) Obstruction of left ureteropelvic junction due to stone: -patient with symptoms of malaise starting on Friday10/13/2019 and then started to have fevers. She had a COVID-19 testing done as outpatient on Friday10/15/2019 and verified on her [facility] [employer] charts that the COVID-19 test returned as negative. -patient presents to the ED on 10/17/2019 and with fever of 39.2 F. Urine positive for bacteria. She was given ceftriaxone in the ED and then about to be started on Doxycycline in the ED in case of any potential cause of fever from tick-borne infection when her CT abdomen testing returned with imaging findings indicating her fever from urosepsis from obstructive kidney stone CT abdomen 1. 5 mm proximal left ureteral calculus with secondary obstructive changes 2. 5 mm lower pole left renal calculus 3. 19 mm upper pole left renal hypodensity which slightly exceeds water attenuation and is therefore indeterminate 4. 7 mm right lower lobe subpleural pulmonary nodule. A 6-12 month follow-up is recommended. -expand antibiotic coverage from ceftriaxone to Zosyn and Doxycycline -patient to go to operating room to have kidney stone removed as per urology Lemus (3) HTN (hypertension): -hold home dose losartan and statin for now History of skin cancer in the past -she had surgical removal in the past of skin cancer DVT prophylaxis: SCDs History of Present Illness -patient with symptoms of malaise starting on Friday10/13/2019 and then started to have fevers. She had a COVID-19 testing done as outpatient on Friday10/15/2019 and verified on her [facility] charts that the COVID-19 test returned as negative. -patient presents to the ED on 10/17/2019 and with fever of 39.2 F. Urine positive for bacteria. She was given ceftriaxone in the ED and then about to be started on Doxycycline in the ED in case of any potential cause of fever from tick-borne infection when her CT abdomen testing returned with imaging findings indicating her fever from urosepsis from obstructive kidney stone CT abdomen 1. 5 mm proximal left ureteral calculus with secondary obstructive changes 2. 5 mm lower pole left renal calculus 3. 19 mm upper pole left renal hypodensity which slightly exceeds water attenuation and is therefore indeterminate 4. 7 mm right lower lobe subpleural pulmonary nodule. A 6-12 month follow-up is recommended. -expand antibiotic coverage from ceftriaxone to Zosyn and Doxycycline -patient to go to operating room to have kidney stone removed as per urology Allan Family History: Breast cancer in the family, patient denies personal history of breast cancer Primary Care Provider: Km Aj DO Allergies Allergy/AdvReac Type Severity Reaction Status Date / Time No Known Allergies Allergy Verified 05/20/02 19:29 Home Medications Home Medications Medication Instructions Recorded Confirmed Type acetaminophen [Tylenol Extra 500 mg PO Q6H PRN 10/17/19 10/17/19 History Strength] alfalfa 0 mg PO BID 10/17/19 10/17/19 History ascorbic acid (vitamin C) [Vitamin 0 mg PO QAM 10/17/19 10/17/19 History C] calcium carbonate [Calcium 500] 0 mg PO HS 10/17/19 10/17/19 History cholecalciferol (vitamin D3) 0 mcg PO QAM 10/17/19 10/17/19 History [Vitamin D3] cyanocobalamin (vitamin B-12) 0 mcg PO QAM 10/17/19 10/17/19 History [Vitamin B-12] fluticasone propionate [Flonase 1 spray INTRANASAL QAM 10/17/19 10/17/19 History Allergy Relief] losartan 25 mg PO HS 10/17/19 10/17/19 History multivitamin 1 tab PO QAM 10/17/19 10/17/19 History omega 2-jmd-ycz-fish oil [Fish Oil] 1 cap PO HS 10/17/19 10/17/19 History pravastatin 40 mg PO 10/17/19 10/17/19 History zinc 50 mg PO QAM 10/17/19 10/17/19 History Past Med/Surg History Social History Feels Safe at Home: Yes Smoking Status: Never smoker Review of Systems Review of Systems: All systems reviewed & are unremarkable except as noted in Subjective Physical Exam Constitutional: comfortable Eyes: PERRL, conjunctivae normal, anicteric sclerae EOM intact bilaterally ENMT: external ear and nose normal, oropharynx normal Neck: trachea midline, no thyromegaly normal visual inspection Respiratory: normal respiratory effort, lungs clear to auscultation Cardiovascular: Rate/Rhythm: regular rate Gastrointestinal (Abdomen): normal bowel sounds, soft, nontender, no hepatosplenomegaly Musculoskeletal: Head/Neck/Chest: normocephalic and head atraumatic Neurologic: PERRL, EOMI, accommodation nl, no face palsy, no dysarthria CN's II-XI intact bilaterally Psychiatric: A+Ox3, euthymic affect Results & Data Results & Data ([facility]) Vital Signs (Past 12 Hours) Vital Signs Temp Pulse Pulse Resp BP BP Pulse Ox 10/17/19 14:00 86 18 111/68 97 10/17/19 13:34 88 20 123/75 96 10/17/19 12:59 94 H 18 119/74 96 10/17/19 12:42 99 H 18 124/71 95 10/17/19 12:00 100 H 25 H 10/17/19 11:31 95 10/17/19 11:05 39.2 C H 103 H 20 122/73 94 Code Status & VTE Plan VTE Prophylaxis Plan VTE Prophylaxis will be ordered: Yes
[2019-10-17] MEDS ORDERED: PIPERACILLIN/TAZOBACTAM 4.5 GM/120 ML BAG IV ONE (15:00)
--- NOTE | 2019-10-17 15:09 | Anesthesiology Consultation ---
Date of Service October 17, 2019 Assessment & Plan Chart Review Chart Review: Acceptable Risk for Surgery and Patient NOT seen in Pre Admission Testing Consults Requested none ASA [id number] Proposed Anesthesia Anesthesia Type: MAC Additional Comments: covid test negative on 10/15/2019 History Surgery Operation Date: 10/17/19 15:15 Proposed Procedures p Ureteral Stent Insertion/Removal(Left) - Josh Lemus, DO Height/Weight Height: 5 ft 8 in Weight: 91.6 kg Allergies Allergy/AdvReac Type Severity Reaction Status Date / Time No Known Allergies Allergy Verified 05/20/02 19:29 Medications Home Medications Medication Instructions Recorded Confirmed Last Taken acetaminophen [Tylenol Extra 500 mg PO Q6H PRN 10/17/19 10/17/19 10/16/19 22:00 Strength] 1000 mg alfalfa 0 mg PO BID 10/17/19 10/17/19 10/16/19 ascorbic acid (vitamin C) [Vitamin 0 mg PO QA 10/17/19 10/17/19 10/16/19 C] calcium carbonate [Calcium 500] 0 mg PO 10/17/19 10/17/19 10/16/19 cholecalciferol (vitamin D3) 0 mcg PO QA 10/17/19 10/17/19 10/16/19 [Vitamin D3] cyanocobalamin (vitamin B-12) 0 mcg PO QAM 10/17/19 10/17/19 10/16/19 [Vitamin B-12] fluticasone propionate [Flonase 1 spray INTRANASAL [facility] 10/17/19 10/17/19 10/16/19 Allergy Relief] losartan 25 mg PO 10/17/19 10/17/19 10/16/19 multivitamin 1 tab PO [facility] 10/17/19 10/17/19 10/16/19 omega 4-kzt-scn-fish oil [Fish Oil] 1 cap PO 10/17/19 10/17/19 10/16/19 pravastatin 40 mg PO 10/17/19 10/17/19 10/16/19 zinc 50 mg PO QA 10/17/19 10/17/19 10/16/19 Active Medications Generic Name Dose Route Start Last Admin Trade Name Freq PRN Reason Stop Dose Admin Piperacillin Sod/Tazobactam Sod 4.5 gm in 120 mls @ 240 mls/hr 10/17/19 15:00 10/17/19 15:06 Zosyn IV 10/17/19 15:29 240 mls/hr ONE ONE Administration Ioversol 93 ml 10/17/19 14:22 10/17/19 14:23 Optiray 320 100ml IV 10/21/19 14:21 93 ml ONCE PRN Administration Interaction Checking Exercise / Class Metabolic Activity II 4-5 Yardwork/Stairs/Walk up hill Past Anesthesia History No Hx of Anesthesia Complications and No Family Hx of Anesthesia Complications History of PONV No Hx of PONV and No Hx of Motion Sickness Social History Smoking Status: Never smoker Physical Exam Vital Signs Last Vital Signs Temp 39.2 C H 10/17/19 11:05 Pulse 86 10/17/19 14:00 Resp 18 10/17/19 14:00 BP 111/68 10/17/19 14:00 Pulse Ox 97 10/17/19 14:00 Testing Laboratory Results 10/17/19 11:00 10/17/19 11:00 PT 11.4 Seconds (9.0-12.0) 10/17/19 11:00 INR 1.1 (0.9-1.1) 10/17/19 11:00 APTT 27.7 Seconds (21.0-31.0) 10/17/19 11:00 Urine Color Dark Yellow 10/17/19 12:50 Urine Appearance Cloudy (Clear) A 10/17/19 12:50 Urine pH 5.5 (4.5-7.5) 10/17/19 12:50 Ur Specific Johnson 1.017 (1.000-1.030) 10/17/19 12:50 Urine Protein 2+ (Negative) H 10/17/19 12:50 Urine Glucose (UA) Negative (Negative) 10/17/19 12:50 Urine Ketones Negative (Negative) 10/17/19 12:50 Urine Nitrite Positive (Negative) A 10/17/19 12:50 Ur Leukocyte Esterase 2+ (Negative) H 10/17/19 12:50 Urine WBC (Auto) >30 /hpf (0-5) H 10/17/19 12:50 Urine RBC (Auto) 5-10 /hpf (0-4) H 10/17/19 12:50 U Hyaline Cast (Auto) 5-10 /lpf (0-5) H 10/17/19 12:50 U Epithel Cells (Auto) 5-10 /lpf (0-5) H 10/17/19 12:50 Urine Bacteria (Auto) 4+ (Negative) H 10/17/19 12:50 10/17/19 11:43 Group A Streptococcus Rapid Screen - Final Throat Specimen negative for Group A Beta Strep by rapid method. Culture report to follow. Electrocardiogram Date: 10/17/19 Findings: + ST @ (at 101) Chest X-Ray Date: 10/17/19 Findings: + NAD
[2019-10-17] MEDS ORDERED: fentaNYL citrate 100 MCG/2 ML VIAL ONE (15:35)
[2019-10-17] MEDS ORDERED: MIDAZOLAM HCL 1 MG/ML 2ML VIAL ONE (15:35)
[2019-10-17] MEDS ORDERED: PROPOFOL IV EMULSION 10 MG/ML 20 ML VIAL IV ONE (15:35)
--- NOTE | 2019-10-17 15:53 | Operative Report ---
[facility] Post Operative Report Pre & Post Diagnosis Sepsis, Left Obstructing Ureteral Stone Same Operation Date: 10/17/19 15:15 <No data on this case meets the specified criteria> I identified the patient and participated in the time-out.: Yes Procedure Cystoscopy with left retrograde pyelogram, aspiration, and stent placement. Operation Date: 10/17/19 15:15 <No data on this case meets the specified criteria> Surgeon Josh Lemus, II, DO [employer] Assistant None Estimated Blood Loss 1 Findings Consistent with Post-Op Diagnosis Stent placed in good position. Specimens Urine for culture left renal pelvis. Drains 6 Fr Multilength Anesthesia Type MAC Complications none Disposition Disposition: Recovery Room Indications Patient with obstruction and sepsis. Risks and benefits discussed at length. Description of Procedure Patient was consented and brought back to the operating room. Patient was placed under anesthesia in the supine position and moved to the dorsal lithotomy position. Patient was prepped and draped in the regular sterile fashion. A time out was completed. A 30degree Cystoscope was placed into the bladder and the entire bladder was examined. The UO's were identified. The UO was cannulized with a catheter, urine was aspirated from the left renal pelvis, and a retrograde pyelogram was completed. A wire was then placed. With the wire in place, a 6 Fr Double J stent was placed. It was confirmed with fluoroscopy. With the stent in place, the bladder was emptied. The scope was removed. The patient was cleaned, aroused from anesthesia, and transferred to the pacu in stable condition having tolerated the procedure well with no complications. I was present and participated in all aspects of the procedure. The patient will be monitored in the PACU until transferred. I attest to the content of the Intraoperative Record and any orders documented therein. Any exceptions are noted below.
[2019-10-17] MEDS ORDERED: NALOXONE HCL 0.4 MG/1 ML VIAL/CARP IV PRN (16:02)
[2019-10-17] MEDS ORDERED: ATROPINE SULFATE 0.1 MG/ML 10ML SYR IV PRN (16:02)
[2019-10-17] MEDS ORDERED: LABETALOL HCL IV 5 MG/ML 20ML IV PRN (16:02)
[2019-10-17] MEDS ORDERED: fentaNYL citrate 100 MCG/2 ML VIAL IV PRN (16:02)
[2019-10-17] MEDS ORDERED: PROMETHAZINE HCL 12.5 MG in SODIUM CHLORIDE 0.9% 50 ML IV PRN (16:02)
[2019-10-17] MEDS ORDERED: FLUMAZENIL 0.1 MG/1 ML 10 ML VIAL IV PRN (16:02)
[2019-10-17] MEDS ORDERED: ePHEDrine sulfate 50 MG/ML AMP IV PRN (16:02)
--- NOTE | 2019-10-17 16:14 | Fluoroscopy Report ---
FL retrograde includes kub CLINICAL HISTORY: Stent placement COMPARISON STUDY: CT scan dated 10/17/2019 FLUOROSCOPY TIME: 3 seconds. NUMBER OF FLUOROSCOPIC IMAGES: 8 FINDINGS: 8 intraoperative fluoroscopic spot images are provided for interpretation. These demonstrat e retrograde catheterization of the left ureter. The left renal collecting system was opacified. No f illing defects are visualized. A double pigtail left sided nephroureteral stent was placed. IMPRESSION: Fluoroscopic spot images during placement of a double pigtail left sided nephroureteral stent ACT 112: Negative or not required by law. Electronically signed by: Haroldo Andrade M.D. 10/17/2019 4:13 PM
--- NOTE | 2019-10-17 16:32 | Anesthesiology Progress Note ---
Date of Service October 17, 2019 Anesthesia Post Procedure Vital Signs Vital Signs: Temp Pulse Pulse Resp BP BP Pulse Ox 10/17/19 16:15 36.7 C 77 18 109/70 94 10/17/19 16:05 77 17 101/65 95 10/17/19 15:58 36.4 C L 77 18 106/59 L 96 10/17/19 14:00 86 18 111/68 97 10/17/19 13:34 88 20 123/75 96 10/17/19 12:59 94 H 18 119/74 96 10/17/19 12:42 99 H 18 124/71 95 10/17/19 12:00 100 H 25 H 10/17/19 11:31 95 10/17/19 11:05 39.2 C H 103 H 20 122/73 94 Transfer of Care Handoff Completed per policy Notes Mental Status: alert / awake / arousable Patient Amnestic to Procedure: Yes Nausea / Vomiting: adequately controlled Pain: adequately controlled Airway Patency, RR, SpO2: stable & adequate BP & HR: stable & adequate Hydration State: stable & adequate Anesthetic Complications: no major complications apparent
[2019-10-17] MEDS: SODIUM CHLORIDE 0.9% 1000ML 1,000 ML IV SCH (16:58)
[2019-10-17] MEDS: DOXYCYCLINE HYCLATE 100 MG in DEXTROSE 5% 100 ML IV SCH (17:19)
[2019-10-17] MEDS: MAGNESIUM SULFATE / D5W 1 GM/100 ML BAG IV SCH ×2 (17:35→19:36)
[2019-10-17] MEDS: PIPERACILLIN/TAZOBACTAM 3.375 GM in DEXTROSE 5% 100 ML IV SCH (20:12)
[2019-10-18] MEDS: SODIUM CHLORIDE 0.9% 1000ML 1,000 ML IV SCH (04:28)
[2019-10-18] MEDS: PIPERACILLIN/TAZOBACTAM 3.375 GM in DEXTROSE 5% 100 ML IV SCH ×3 (04:29→21:02)
[2019-10-18] MEDS: ACETAMINOPHEN 325 MG TAB PO PRN ×3 (04:43→17:31)
--- NOTE | 2019-10-18 07:57 | Hospitalist Progress Note ---
Date of Service October 18, 2019 Assessment & Plan (1) Sepsis: Bacteremia -patient with symptoms of malaise starting on Friday10/13/2019 and then started to have fevers. She had a COVID-19 testing done as outpatient on Friday10/15/2019 and [facility] that the COVID-19 test returned as negative. -patient presents to the ED on 10/17/2019 and with fever of 39.2 F. Urine positive for bacteria. She was given ceftriaxone in the ED and then about to be started on Doxycycline in the ED in case of any potential cause of fever from tick-borne infection when her CT abdomen testing returned with imaging findings indicating her fever from urosepsis from obstructive kidney stone CT abdomen 1. 5 mm proximal left ureteral calculus with secondary obstructive changes 2. 5 mm lower pole left renal calculus 3. 19 mm upper pole left renal hypodensity which slightly exceeds water attenuation and is therefore indeterminate 4. 7 mm right lower lobe subpleural pulmonary nodule. A 6-12 month follow-up is recommended. -s/p removal of infectious source of left kidney stone Cystoscopy with left retrograde pyelogram, aspiration, and stent placement on 10/17/2019 -however the admission blood cultures on 10/17/2019 with gram negative bacilli -has been on Zosyn and Doxycycline since 10/17/2019, continue for now because of gram negative bacteremia. tick borne infection unlikely but will continue Doxycycline until labs rule out tick borne infections (2) Obstruction of left ureteropelvic junction due to stone: -removed on this admission (3) HTN (hypertension): -resume home dose losartan and statin Hypomagnesemia -serum magnesium 1.6 on admission and was given magnesium supplements -trend the labs History of skin cancer in the past -she had surgical removal in the past of skin cancer DVT prophylaxis: SCDs Admission and Anticipated Discharge Date Admission Date: October 17, 2019 Subjective Patient feeling well after left kidney stone Cystoscopy with left retrograde pyelogram, aspiration, and stent placement on 10/17/2019 denies fevers or chills. back pain present but tolerable. no chest pain, no shortness of breath, no dizziness, no headache. no vomiting. no dizziness. no headache. she denies dsyuria Review of Systems Review of Systems: All systems reviewed & are unremarkable except as noted in Subjective Physical Exam Constitutional: comfortable Eyes: PERRL, conjunctivae normal, anicteric sclerae EOM intact bilaterally ENMT: external ear and nose normal, oropharynx normal Neck: trachea midline, no thyromegaly normal visual inspection Respiratory: normal respiratory effort, lungs clear to auscultation Cardiovascular: Rate/Rhythm: regular rate Gastrointestinal (Abdomen): normal bowel sounds, soft, nontender, no hepatosplenomegaly Musculoskeletal: Head/Neck/Chest: normocephalic and head atraumatic Neurologic: PERRL, EOMI, accommodation nl, no face palsy, no dysarthria CN's II-XI intact bilaterally Psychiatric: A+Ox3, euthymic affect Results & Data Results & Data ([facility]) Vital Signs (Past 12 Hours) Vital Signs Temp Pulse Pulse Resp BP BP Pulse Ox 10/18/19 07:27 68 10/18/19 06:57 36.8 C 69 19 151/81 H 99 10/18/19 03:21 36.6 C 71 16 134/80 99 10/18/19 00:02 36.6 C 63 16 119/76 98 (1) Sepsis Sepsis acute organ dysfunction status: unspecified Sepsis type: sepsis due to unspecified organism Qualified Code(s): A41.9 - Sepsis, unspecified organism
[2019-10-18] MEDS: DOXYCYCLINE HYCLATE 100 MG in DEXTROSE 5% 100 ML IV SCH (08:05)
[2019-10-18 09:46] LABS: Basophils # (auto) 0.05 K/uL (0-0.2); Basophils % (auto) 0.5 %; Hematocrit (blood only) 34.3 % (37-47); Hemoglobin 11.5 g/dL (12.0-16.0); Immature Granulocytes # (auto) 0.13 K/uL (0.00-0.02); Immature Granulocytes % (auto) 1.3 %; Lymphocytes # (auto) 1.42 K/uL (1.2-3.4); Lymphocytes % (auto) 14.3 %; Mean Corpuscular Hemoglobin 30.8 pg (25-34); Mean Corpuscular Hgb Conc 33.5 g/dL (32-36); Mean Platelet Volume 9.6 fL (7.4-10.4); Monocytes # (auto) 0.78 K/uL (0.11-0.59); Monocytes % (auto) 7.9 %; Neutrophils # (auto) 7.44 K/uL (1.4-6.5); Platelet Count 196 K/uL (130-400); RDW Standard Deviation 50.8 fL (36.4-46.3); Red Blood Count 3.73 M/uL (4.2-5.4); White Blood Count 9.92 K/uL (4.8-10.8)
[2019-10-18 10:25] LABS: Albumin Level 2.7 gm/dl (3.4-5.0); Calcium 8.5 mg/dl (8.5-10.1); Creatinine Clr Calc Pharmacy 82.2 ml/min; Est GFR (African American) 83.4; Est GFR (Non-African American) 71.9; Potassium 2.9 mmol/L (3.5-5.1)
[2019-10-18 10:28] LABS: Albumin Globulin Ratio 0.6 (0.9-2); Bilirubin,Total 0.5 mg/dl (0.2-1); Globulin 4.6 gm/dl (2.5-4.0); Total Protein 7.3 gm/dl (6.4-8.2)
--- NOTE | 2019-10-18 14:32 | Electrocardiogram Report ---
Test Reason : Blood Pressure : / mmHG Vent. Rate : 101 BPM Atrial Rate : 101 BPM P-R Int : 148 ms QRS Dur : 096 ms QT Int : 326 ms P-R-T Axes : 054 017 049 degrees QTc Int : 422 ms Sinus tachycardia Possible Left atrial enlargement Borderline ECG No previous ECGs available Confirmed by Michael Meier ([id number]) on 10/18/2019 2:32:21 PM Referred By: REFERRED SELF Confirmed By:Chandrakant Meier
[2019-10-18] MEDS ORDERED: POTASSIUM CHLORIDE 20 MEQ/15 ML UDC PO STA (14:46)
[2019-10-18] MEDS: POTASSIUM CHLORIDE / WTR 10 MEQ/100 ML PLCT IV SCH ×2 (15:17→16:18)
[2019-10-18 18:38] LABS: BUN Creatinine Ratio 10.7 (10-20); Calcium 8.3 mg/dl (8.5-10.1); Creatinine Clr Calc Pharmacy 84.1 ml/min; Est GFR (African American) 85.7; Potassium 4.1 mmol/L (3.5-5.1)
[2019-10-18] MEDS ORDERED: DOXYCYCLINE HYCLATE 100 MG in DEXTROSE 5% 100 ML IV SCH (19:00)
[2019-10-18] MEDS: LOSARTAN POTASSIUM 25 MG TAB PO SCH (21:02)
[2019-10-18] MEDS: ZOLPIDEM TARTRATE 5 MG TAB PO PRN (21:03)
[2019-10-18] MEDS: PRAVASTATIN SOD 40 MG TAB PO SCH (21:03)
[2019-10-19] MEDS: PIPERACILLIN/TAZOBACTAM 3.375 GM in DEXTROSE 5% 100 ML IV SCH (04:44)
[2019-10-19 06:19] LABS: Basophils # (auto) 0.05 K/uL (0-0.2); Basophils % (auto) 0.6 %; Eosinophils % (auto) 1.2 %; Hematocrit (blood only) 33.2 % (37-47); Hemoglobin 11.3 g/dL (12.0-16.0); Immature Granulocytes # (auto) 0.37 K/uL (0.00-0.02); Immature Granulocytes % (auto) 4.3 %; Lymphocytes # (auto) 1.73 K/uL (1.2-3.4); Lymphocytes % (auto) 20.3 %; Mean Corpuscular Volume 91.2 fL (80-100); Mean Platelet Volume 9.9 fL (7.4-10.4); Monocytes % (auto) 12.9 %; Neutrophils # (auto) 5.19 K/uL (1.4-6.5); Neutrophils % (auto) 60.7 %; Platelet Count 231 K/uL (130-400); RDW Standard Deviation 50.7 fL (36.4-46.3); Red Blood Count 3.64 M/uL (4.2-5.4); White Blood Count 8.54 K/uL (4.8-10.8)
[2019-10-19 06:55] LABS: Calcium 8.9 mg/dl (8.5-10.1); Creatinine Clr Calc Pharmacy 93.8 ml/min; Est GFR (African American) 97.8; Est GFR (Non-African American) 84.4; Magnesium 2.4 mg/dl (1.8-2.4); Potassium 3.5 mmol/L (3.5-5.1)
[2019-10-19] MEDS ORDERED: POTASSIUM CHLORIDE 20 MEQ/15 ML UDC PO ONE (07:45)
[2019-10-19] MEDS ORDERED: PROMETHAZINE HCL 6.25 MG in SODIUM CHLORIDE 0.9% 50 ML IV PRN (08:28)
--- NOTE | 2019-10-19 08:36 | Hospitalist Progress Note ---
Date of Service October 19, 2019 Assessment & Plan (1) Sepsis: Bacteremia (from -patient with symptoms of malaise starting on Friday10/13/2019 and then started to have fevers. She had a COVID-19 testing done as outpatient on Friday10/15/2019 and verified on her [facility] charts that the COVID-19 test returned as negative. -patient presents to the ED on 10/17/2019 and with fever of 39.2 F. Urine positive for bacteria. She was given ceftriaxone in the ED and then about to be started on Doxycycline in the ED in case of any potential cause of fever from tick-borne infection when her CT abdomen testing returned with imaging findings indicating her fever from urosepsis from obstructive kidney stone CT abdomen 1. 5 mm proximal left ureteral calculus with secondary obstructive changes 2. 5 mm lower pole left renal calculus 3. 19 mm upper pole left renal hypodensity which slightly exceeds water attenuation and is therefore indeterminate 4. 7 mm right lower lobe subpleural pulmonary nodule. A 6-12 month follow-up is recommended. -s/p removal of infectious source of left kidney stone Cystoscopy with left retrograde pyelogram, aspiration, and stent placement on 10/17/2019 -however the admission blood cultures on 10/17/2019 with gram negative bacilli -has been on Zosyn and Doxycycline since 10/17/2019, continue for now because of gram negative bacteremia. tick borne infection unlikely but will continued Doxycycline at the time -10/19/2019: the admission blood cultures have speciated as pansensitive Escherichia coli however there is no first negative blood culture yet as blood cultures from 10/18/2019 are still pending. since the kidney stone was removed and on IV antibiotics, patient has been doing well clinically so far and most studies not indicating tick borne infection (Anaplasma DNA still pending). transition from IV Zosyn and IV Doxycycline to IV Ciprofloxacin q12 hours at this time (2) Obstruction of left ureteropelvic junction due to stone: -removed on this admission (3) HTN (hypertension): -resume home dose losartan and statin Hypomagnesemia Hypokalemia -serum magnesium 1.6 on admission and was given magnesium supplements, serum magnesium have been corrected with magnesium supplements. -serum potassium as low as 2.9 on this admission and serum potassium levels have been corrected with potassium supplements -trend the labs History of skin cancer in the past -she had surgical removal in the past of skin cancer DVT prophylaxis: SCDs Admission and Anticipated Discharge Date Admission Date: October 17, 2019 Subjective the admission blood cultures have speciated as pansensitive Escherichia coli however there is no first negative blood culture yet as blood cultures from 10/18/2019 are still pending. since the kidney stone was removed and on IV antibiotics, patient has been doing well clinically so far and most studies not indicating tick borne infection (Anaplasma DNA still pending). transition from IV Zosyn and IV Doxycycline to IV Ciprofloxacin q12 hours at this time no nausea. no vomiting. no flank pain. no dizziness. no headache. on room air. no shortness of breath. no chest pain. no palpitations Review of Systems Review of Systems: All systems reviewed & are unremarkable except as noted in Subjective Physical Exam Constitutional: comfortable Eyes: PERRL, conjunctivae normal, anicteric sclerae EOM intact bilaterally ENMT: external ear and nose normal, oropharynx normal Neck: trachea midline, no thyromegaly normal visual inspection Respiratory: normal respiratory effort, lungs clear to auscultation Cardiovascular: Rate/Rhythm: regular rate Gastrointestinal (Abdomen): normal bowel sounds, soft, nontender, no hepatosplenomegaly Musculoskeletal: Head/Neck/Chest: normocephalic and head atraumatic Neurologic: PERRL, EOMI, accommodation nl, no face palsy, no dysarthria CN's II-XI intact bilaterally Psychiatric: A+Ox3, euthymic affect Results & Data Results & Data ([facility]) Vital Signs (Past 12 Hours) Vital Signs Temp Pulse Resp BP BP Pulse Ox 10/19/19 07:39 36.8 C 79 16 157/89 H 99 10/18/19 22:43 36.9 C 75 16 149/92 H 99 (1) Sepsis Sepsis acute organ dysfunction status: unspecified Sepsis type: sepsis due to unspecified organism Qualified Code(s): A41.9 - Sepsis, unspecified organism
[2019-10-19] MEDS: CIPROFLOXACIN / D5W 400 MG/200 ML BAG IV SCH ×2 (09:55→21:35)
[2019-10-19] MEDS: ZOLPIDEM TARTRATE 5 MG TAB PO PRN (21:34)
[2019-10-19] MEDS: LOSARTAN POTASSIUM 25 MG TAB PO SCH (21:34)
[2019-10-19] MEDS: PRAVASTATIN SOD 40 MG TAB PO SCH (21:34)
[2019-10-20] MEDS: CIPROFLOXACIN / D5W 400 MG/200 ML BAG IV SCH (08:06)
[2019-10-20] MEDS: ACETAMINOPHEN 325 MG TAB PO PRN (13:22)
--- NOTE | 2019-10-20 15:20 | Hospitalist Progress Note ---
Date of Service Delayed entry date of service noted below October 20, 2019 Assessment & Plan (1) Sepsis: Dr. Itz Aguilar's notes previous hospitalist: Bacteremia (from -patient with symptoms of malaise starting on Friday10/13/2019 and then started to have fevers. She had a COVID-19 testing done as outpatient on Friday10/15/2019 and verified [facility] that the COVID-19 test returned as negative. -patient presents to the ED on 10/17/2019 and with fever of 39.2 F. Urine po sitive for bacteria. She was given ceftriaxone in the ED and then about to be started on Doxycycline in the ED in case of any potential cause of fever from tick-borne infection when her CT abdomen testing returned with imaging findings indicating her fever from urosepsis from obstructive kidney stone CT abdomen 1. 5 mm proximal left ureteral calculus with secondary obstructive changes 2. 5 mm lower pole left renal calculus 3. 19 mm upper pole left renal hypodensity which slightly exceeds water attenuation and is therefore indeterminate 4. 7 mm right lower lobe subpleural pulmonary nodule. A 6-12 month follow-up is recommended. -s/p removal of infectious source of left kidney stone Cystoscopy with left retrograde pyelogram, aspiration, and stent placement on 10/17/2019 -however the admission blood cultures on 10/17/2019 with gram negative bacilli -has been on Zosyn and Doxycycline since 10/17/2019, continue for now because of gram negative bacteremia. tick borne infection unlikely but will continued Doxycycline at the time -10/19/2019: the admission blood cultures have speciated as pansensitive Escherichia coli however there is no first negative blood culture yet as blood cultures from 10/18/2019 are still pending. since the kidney stone was removed and on IV antibiotics, patient has been doing well clinically so far and most studies not indicating tick borne infection (Anaplasma DNA still pending). transition from IV Zosyn and IV Doxycycline to IV Ciprofloxacin q12 hours at this time 10/20/2019 Afebrile, clinically much better Second set of blood cultures negative Discharge to home on ciprofloxacin 500 mg twice daily x11 days to complete 14- day course (2) Obstruction of left ureteropelvic junction due to stone: Status post cystoscopy with aspiration and stent placement Denies urinary symptoms Follow-up with Dr. Josh Lemus in 1 week for definitive management of ureteral stone and stent (3) HTN (hypertension): -resume home dose losartan and statin -BP stable Hypomagnesemia Hypokalemia Resolved History of skin cancer in the past -she had surgical removal in the past of skin cancer DVT prophylaxis: SCDs Disposition Discharge to home Follow-up with primary care physician in 1 week Follow-up with urologist in 1 week Plan of care discussed with patient and her in detail at length All questions were answered The understanding, agreeable, comfortable plan of care Admission and Anticipated Discharge Date Admission Date: October 17, 2019 Subjective Follow-up for bacteremia, UTI, sepsis Seen resting in bed, comfortable, not in distress In good spirits States she feels fine overall Denies abdominal pain, flank pain, back pain, urinary symptoms No fevers or chills, nausea vomiting Denies chest pain, shortness of breath palpitations dizziness No other symptoms States she is ready would like to be discharged Review of Systems Review of Systems: All systems reviewed & are unremarkable except as noted in HPI & below Physical Exam Physical Exam: General- oriented x 3, not in distress, speaks in sentences with no effort or accessory muscle use Eyes- anicteric Neck- no JVD Lungs- clear breath sounds bilaterally, no rales/wheezes Heart- normal rate, regular rhythm; no murmurs Abdomen- normal bowel sounds, nondistended, soft, nontender No CVA tenderness Extremities- no pretibial edema, no calf tenderness Neuro- alert, oriented x 3; no gross focal neurologic deficits Skin- warm & dry Results & Data Results & Data ([facility]) Vital Signs (Past 12 Hours) Vital Signs Temp Pulse Resp BP Pulse Ox 10/20/19 07:37 36.6 C 76 16 146/89 H 100 Laboratory Results Laboratory Results - last 24 hr 10/17/19 11:00 A. phagocytophilum DNA Not Detected All noted and reviewed (1) Sepsis Sepsis acute organ dysfunction status: unspecified Sepsis type: sepsis due to unspecified organism Qualified Code(s): A41.9 - Sepsis, unspecified organism
--- NOTE | 2019-10-21 21:13 | Discharge Summary ---
Date of Service October 21, 2019 Admission HPI Per Admitting Provider -patient with symptoms of malaise starting on Friday10/13/2019 and then started to have fevers. She had a COVID-19 testing done as outpatient on Friday10/15/2019 and verified on her [facility] charts that the COVID-19 test returned as negative. -patient presents to the ED on 10/17/2019 and with fever of 39.2 F. Urine positive for bacteria. She was given ceftriaxone in the ED and then about to be started on Doxycycline in the ED in case of any potential cause of fever from tick-borne infection when her CT abdomen testing returned with imaging findings indicating her fever from urosepsis from obstructive kidney stone CT abdomen 1. 5 mm proximal left ureteral calculus with secondary obstructive changes 2. 5 mm lower pole left renal calculus 3. 19 mm upper pole left renal hypodensity which slightly exceeds water attenuation and is therefore indeterminate 4. 7 mm right lower lobe subpleural pulmonary nodule. A 6-12 month follow-up is recommended. -expand antibiotic coverage from ceftriaxone to Zosyn and Doxycycline -patient to go to operating room to have kidney stone removed as per urology Admission Exam Per Admitting Provider Constitutional: comfortable Eyes: PERRL, conjunctivae normal, anicteric sclerae EOM intact bilaterally ENMT: external ear and nose normal, oropharynx normal Neck: trachea midline, no thyromegaly normal visual inspection Respiratory: normal respiratory effort, lungs clear to auscultation Cardiovascular: Rate/Rhythm: regular rate Gastrointestinal (Abdomen): normal bowel sounds, soft, nontender, no hepatosplenomegaly Musculoskeletal: Head/Neck/Chest: normocephalic and head atraumatic Neurologic: PERRL, EOMI, accommodation nl, no face palsy, no dysarthria CN's II-XI intact bilaterally Psychiatric: A+Ox3, euthymic affect Principal Diagnosis Sepsis secondary to E coli Bacteremia, UTI Left Ureteral Stone, s/p Stent Placement Discharge Exam General- oriented x 3, not in distress, speaks in sentences with no effort or accessory muscle use Eyes- anicteric Neck- no JVD Lungs- clear breath sounds bilaterally, no rales/wheezes Heart- normal rate, regular rhythm; no murmurs Abdomen- normal bowel sounds, nondistended, soft, nontender No CVA tenderness Extremities- no pretibial edema, no calf tenderness Neuro- alert, oriented x 3; no gross focal neurologic deficits Skin- warm & dry Discharge Data Allergies Allergy/AdvReac Type Severity Reaction Status Date / Time No Known Allergies Allergy Verified 05/20/02 19:29 Consultations 10/17/19 14:16 ED Decision to Admit Stat 10/17/19 14:47 Consult Urology Routine 10/17/19 14:52 Consult Urology Stat Procedures Performed Operation Date: 10/17/19 15:15 Actual Procedures p Cystoscopy, Left Retrograde Pyleogram, Left Ureteral Stent Insertion(Left) - Josh Phillips DO Ordered Studies 10/17/19 11:42 CT head/brain wo con Stat FINDINGS: No intra or extra-axial mass lesions are visualized. There is no CT evidence of acute cortical infarction. There is no evidence of midline shift. There is no acute hemorrhage. No calvarial fractures are visualized. There is no evidence of pathologic ventricular dilatation. There is no evidence of acute sinusitis. There are postsurgical changes of a left orbital banding procedure IMPRESSION: No acute intracranial findings 10/17/19 13:51 CT abd pelvis IV con only Stat COMPARISON STUDY: None. TECHNIQUE: Patient was scanned in a dynamic helical fashion during intravenous administration of 93 cc of Optiray 320 A dose lowering technique was utilized adhering to the principles of ALARA. CT DOSE: 710.87 mGy.cm FINDINGS: Lower chest: There are basilar atelectatic changes. There is mild subpleural interstitial thickening. There is a 7 mm subpleural right lower lobe pulmonary nodule. There is a small left pleural effusion. Liver: There is a 3 cm left lobe hepatic cyst. The hepatic and portal veins appear patent. Gallbladder: Unremarkable. Spleen: Top normal in size Pancreas: Unremarkable. Adrenal glands: Unremarkable. Kidneys: There is a diminished left-sided nephrogram. There is a 5 mm lower pole left renal calculus. There is left-sided hydronephrosis. There is a 5 mm obstructing proximal left ureteral calculus. There is a 19 mm upper pole left renal hypodensity which slightly exceeds water attenuation and is therefore indeterminate. Bowel: There are no transition zones indicate bowel obstruction. There is no evidence of acute diverticulitis. There are fluid-filled small bowel loops possibly representing a mild ileus. There is no evidence of acute appendicitis. Peritoneum: There is no intraperitoneal free air or abdominal ascites. There is tiny fat-containing umbilical hernia Vasculature: The abdominal aorta is normal in course and caliber. Adenopathy: None. Pelvic viscera: The bladder, and pelvic viscera are unremarkable. Skeletal structures: No destructive osseous lesions are seen. IMPRESSION: 1. 5 mm proximal left ureteral calculus with secondary obstructive changes 2. 5 mm lower pole left renal calculus 3. 19 mm upper pole left renal hypodensity which slightly exceeds water attenuation and is therefore indeterminate 4. 7 mm right lower lobe subpleural pulmonary nodule. A 6-12 month follow-up is recommended. Please refer to below summary of Fleischner criteria recommendations for follow- up of incidental CT nodules (Kennedy Greene, Guidelines for management of small pulmonary nodules detected on CT scans: A statement from the Fleischner Society, Radiology 237: [phone].) SOLID NODULES Solitary nodule size: <6 mm * low risk patients: no follow-up needed * high risk patients: optional CT at 12 months Solitary nodule size: 6-8 mm * low risk patients: follow-up at 6-12 months, then consider further follow-up at 18-24 months * high risk patients: initial follow-up CT at 6-12 months and then at 18-24 months if no change Solitary nodule size: >8 mm * either low or high risk patients - consider follow-up CT at 3 months, and/or CT-PET, and/or biopsy Multiple nodules size: <6 mm * low risk patients: no routine follow-up * high risk patients: optional CT at 12 months Multiple nodules size: 6-8 mm * low risk patients: follow-up at 3-6 months, then consider further follow-up at 18-24 months * high risk patients: follow-up at 3-6 months, then at 18-24 months if no change Multiple nodules size: >8 mm * low risk patients: follow-up at 3-6 months, then consider further follow-up at 18-24 months * high risk patients: follow-up at 3-6 months, then at 18-24 months if no change Note: newly detected indeterminate nodule in persons 35 years of age or older. * low risk patients: minimal or absent history of smoking and/or other known risk factors * high risk patients: history of smoking or of other known risk factors (e.g. first degree relative with lung cancer, or exposure to asbestos, radon, uranium) * if a nodule up to 8 mm is partly solid or is ground glass further follow-up is required after 24 months to exclude possible slow growing adenocarcinoma (AZEEM) SUBSOLID NODULES Solitary pure ground-glass nodule * nodule size <6 mm - no CT follow-up required * nodule size >=6 mm - follow-up CT at 6-12 months, then every 2 years until 5 years Solitary part-solid nodule * nodule size <6 mm - no CT follow-up required * nodule size >=6 mm - follow-up CT at 3-6 months. If unchanged, and solid component remains <6 mm, then annual follow-up for 5 years Multiple subsolid nodules * nodule size <6 mm - follow-up CT at 3-6 months, consider further follow-up at 2 and 4 years if stable * nodule size >=6 mm - follow-up CT at 3-6 months, subsequent management based on the most suspicious nodule(s) 10/17/19 14:59 FL retrograde includes kub Routine Hospital Course (1) Sepsis: Dr. Itz Aguilar's notes previous hospitalist: Bacteremia (from -patient with symptoms of malaise starting on Friday10/13/2019 and then started to have fevers. She had a COVID-19 testing done as outpatient on Friday10/15/2019 and verified on her [facility] charts that the COVID-19 test returned as negative. -patient presents to the ED on 10/17/2019 and with fever of 39.2 F. Urine positive for bacteria. She was given ceftriaxone in the ED and then about to be started on Doxycycline in the ED in case of any potential cause of fever from tick-borne infection when her CT abdomen testing returned with imaging findings indicating her fever from urosepsis from obstructive kidney stone CT abdomen 1. 5 mm proximal left ureteral calculus with secondary obstructive changes 2. 5 mm lower pole left renal calculus 3. 19 mm upper pole left renal hypodensity which slightly exceeds water attenuation and is therefore indeterminate 4. 7 mm right lower lobe subpleural pulmonary nodule. A 6-12 month follow-up is recommended. -s/p removal of infectious source of left kidney stone Cystoscopy with left retrograde pyelogram, aspiration, and stent placement on 10/17/2019 -however the admission blood cultures on 10/17/2019 with gram negative bacilli -has been on Zosyn and Doxycycline since 10/17/2019, continue for now because of gram negative bacteremia. tick borne infection unlikely but will continued Doxycycline at the time -10/19/2019: the admission blood cultures have speciated as pansensitive Escherichia coli however there is no first negative blood culture yet as blood cultures from 10/18/2019 are still pending. since the kidney stone was removed and on IV antibiotics, patient has been doing well clinically so far and most studies not indicating tick borne infection (Anaplasma DNA still pending). transition from IV Zosyn and IV Doxycycline to IV Ciprofloxacin q12 hours at this time 10/20/2019 Afebrile, clinically much better Second set of blood cultures negative Discharge to home on ciprofloxacin 500 mg twice daily x11 days to complete 14- day course (2) Obstruction of left ureteropelvic junction due to stone: Status post cystoscopy with aspiration and stent placement Denies urinary symptoms Follow-up with Dr. Josh Phillips in 1 week for definitive management of ureteral stone and stent (3) HTN (hypertension): -resume home dose losartan and statin -BP stable (4) Pulmonary nodule: seen on CT abdomen and pelvis: 7 mm right lower lobe subpleural pulmonary nodule. A 6-12 month follow-up is recommended. -- full report noted in the Ordered section above including summary of Fleischner criteria recommendations for follow-up of incidental CT nodules Hypomagnesemia Hypokalemia - Resolved History of skin cancer in the past -she had surgical removal in the past of skin cancer DVT prophylaxis: SCDs Disposition Discharge to home Follow-up with primary care physician in 1 week Follow-up with urologist in 1 week Plan of care discussed with patient and her in detail at length All questions were answered The understanding, agreeable, comfortable plan of care Total Time Total Time Spent Total Time Spent (In Minutes): 55 minutes Discharge Plan Discharge Items Patient Disposition: Home - Self-Care Reason For Visit: UROSEPSIS Discharge Diagnosis: Sepsis secondary to E coli Urinary Tract Infection and Bloodstream Infection Obstruction of left ureteropelvic junction due to stone s/p Cystoscopy with left retrograde pyelogram, aspiration, and stent placement on 10/17/2019 Activity: Resume your previous activity Activity Comment: Gradually as tolerated; No heavy exertion Exercise/Sports: Wait until after follow-up appointment Driving/Machine Use: No Driving if with weakness or abdominal pain Non-emergency contact: Primary Care Provider and Surgeon Call non-emergency contact if: you have any medication questions, your symptoms worsen, your pain is not controlled, your pain is worsening, your pain is unusual for you, your pain is concerning for you and you have a fever Follow-up/Referrals: Josh Phillips DO [Physician] - Km Aj DO [Primary Care Provider] - 10/25/19 3:30 pm (10/25/2019 3:30 PM Provider Km Aj DO [facility] ) Diet: Heart Healthy Addtl Attending Provider Instructions: PLEASE REVIEW YOUR NEW MEDICATION LIST AND FOLLOW INSTRUCTIONS CAREFULLY. YOUR NEW MEDICATIONS INCLUDE: CIPROFLOXACIN- antibiotic for UTI, bloodstream infection PROBIOTIC- over the counter, once daily x 3 weeks PLEASE DRINK PLENTY OF FLUIDS. CALL PRIMARY CARE PHYSICIAN OR RETURN TO THE ER IMMEDIATELY IF WITH WORSENING OF SYMPTOMS, ABDOMINAL/FLANK/BACK PAIN, PROBLEMS WITH URINATION, FEVER/CHILLS, NAUSEA/ VOMITING, WEAKNESS, DIARRHEA. FOLLOW UP WITH PRIMARY CARE PHYSICIAN: 10/25/2019 3:30 PM Provider Km Aj DO [facility] FOLLOW UP WITH UROLOGIST IN 1 WEEK. PLEASE CALL HIS OFFICE TO SET UP AN APPOINTMENT. CONTACT INFORMATION OUTLINED IN THE FOLLOW UP/REFERRALS SECTION ABOVE. Pending Studies at Discharge: Yes Studies:: Ureteral Stent Removal c/o Urologist Dr. Josh Phillips Stand-Alone Forms: [facility], Work/School Release (Inpt), Smoking Cessation Medications and DC Order Prescriptions: New ciprofloxacin HCl 500 mg tablet 500 mg PO Q12H Qty: 22 RF: 0 Continued pravastatin 40 mg tablet 40 mg PO HS RF: 0 acetaminophen [Tylenol Extra Strength] 500 mg Tablet 500 mg PO Q6H PRN (Reason: Pain) RF: 0 losartan 25 mg tablet 25 mg PO HS RF: 0 multivitamin Tablet 1 tab PO QAM RF: 0 cyanocobalamin (vitamin B-12) [Vitamin B-12] 1,000 mcg Tablet Extended Release 0 mcg PO QAM RF: 0 ascorbic acid (vitamin C) [Vitamin C] 1,000 mg Tablet 0 mg PO QAM RF: 0 calcium carbonate [Calcium 500] 500 mg calcium (1,250 mg) Tablet 0 mg PO HS RF: 0 zinc 50 mg Tablet 50 mg PO QAM RF: 0 fluticasone propionate [Flonase Allergy Relief] 50 mcg/actuation [place],Suspension 1 spray INTRANASAL QAM RF: 0 cholecalciferol (vitamin D3) [Vitamin D3] 25 mcg (1,000 unit) Tablet 0 mcg PO QAM RF: 0 omega 1-mxv-ref-fish oil [Fish Oil] 1,000 mg (120 mg-180 mg) Capsule 1 cap PO HS RF: 0 alfalfa 250 mg Tablet 0 mg PO BID RF: 0 Discharge Orders: Discharge Order (Routine); Ordered 10/20/19 Ordered By: Osbaldo Garay/Other Patient Handouts: Anatomy of the Female Urinary Tract, How Your Kidneys Work, Understanding Kidney Stones, Identifying Kidney Stones, Treating Kidney Stones Ureteroscopic Stone Removal, Preventing Kidney Stones Admission Data Admit Date/Time: 10/17/19 15:11 Attending Provider: Osbaldo Lazar Admit Provider: Itz Aguilar Primary Care Provider: Km Aj Other Providers: Josh Phillips ; Itz Aguilar Other Interventions: Discharge Summary Assessment (RN) Last Done: 10/20/19 15:28 DC Date/Time DO NOT enter until pt leaves facility: 10/20/19 15:51
== END 2019-10-20 15:51 | disposition home or self-care (01) | DRG 854 ==
LOC: ED 10:39 → OR 15:10 → 2S 15:11 → SUATTDRO 15:11 → 3W 10-18 09:15

== ENCOUNTER 2024-06-30 11:59 | Inpatient (IN) ==
--- NOTE | 2024-06-30 12:30 | Emergency Department Note ---
Impression & Plan Pyelonephritis, Hypokalemia, SAVANNA (acute kidney injury), Hydronephrosis, Ureteral stone, Leukocytosis ED Provider Note NAME: SAUL KIRKLAND AGE: 63 SEX: F : 1960 ARRIVES VIA: Walk-In INFORMANT: [Patient] ED PROVIDER(S): [Bon Parker MD] CHIEF COMPLAINT: Kidney stone HISTORY OF PRESENT ILLNESS: The patient is a 63-year-old female who presents to the ER with right flank and right abdominal pain that began 2 days ago. At first, things seemed better but then in the last day or so, things have worsened. She had a fever last night of 100.4 that seemed to go away with Tylenol. The patient complains of a headache, some body aching, she has pain in the right flank and the right abdomen. The pain seems to come in waves. The patient has noticed some darker urine but no burning to urinate or urinary frequency. No cough or cold or congestion, no respiratory complaints. She is concerned about a urinary infection or possibly, a kidney stone. She has had both in the past. PMHx/PSHx/Social Hx: See Below PHYSICAL EXAM: GENERAL: Patient is in no acute distress. Face is somewhat flushed. HEENT: No acute trauma, normocephalic atraumatic, mucous membranes moist, no nasal congestion. NECK: No stridor, no adenopathy, no meningismus, trachea is midline. LUNGS: Clear to auscultation bilaterally, no wheeze, no rhonchi, breath sounds equal. HEART: Tachycardic, regular rhythm, no murmurs. ABDOMEN: Soft, moderately tender in the right upper quadrant, mildly tender in the right mid abdomen. No distention. EXTREMITIES: No cyanosis, full range of motion of all the joints without pain or difficulty. NEUROLOGIC: Oriented x 3, no acute motor or sensory deficits, no focal weakness. SKIN: No jaundice, no diaphoresis. Back: Right flank discomfort with percussion. DIFFERENTIAL DIAGNOSIS: Pyelonephritis, hydronephrosis, renal colic, biliary colic, appendicitis, diverticulitis, sepsis, among others. EMERGENCY DEPARTMENT PROCEDURES: MEDICAL DECISION MAKING: There is a mild leukocytosis, this would be consistent with infection. There was a normal hemoglobin and platelet count. Potassium was low and there was some mild acute kidney injury. No worrisome liver enzyme elevation. Lactic acid level was not elevated making sepsis less likely. There was no pancreatitis. Procalcitonin level was elevated consistent with a bacterial source for infection. Urinalysis did show findings of infection. Chest x-ray did not show any obvious pneumonia. No free air. Abdominal and pelvis CT showed pyelonephritis with a right proximal ureteral obstruction and hydronephrosis. There was a 6 mm stone in the proximal right ureter. The patient presented tachycardic. She was not hypotensive. The patient received IV saline, 1.5 L. She received oral and IV potassium. She was given IV Zofran and IV morphine. She received IV Toradol. She was given IV ceftriaxone as antibiotic coverage. Given the findings, I did think urology intervention was likely necessary. I spoke with the urology team, they will see the patient here in the ED. The patient requires a hospital stay. She has pyelonephritis with a ureteral obstruction from a 6 mm proximal stone. She will require hospitalization, IV antibiotic therapy, urology consultation/intervention. I did speak with case management, the on-call hospitalist was consulted. Prior/Outside records/notes reviewed: January 2024 urology note describing her visit, previous findings and plan outpatient. Imaging/x-ray results per my interpretation: Chest x-ray shows some potential atelectasis in the right base, no focal pneumonia, no CHF. Chronic Medical/Social conditions affecting care: None Care/Management discussed with: Urology-Dr. Grider. Case management and the on-call hospitalist. Level of care consideration(s): After review of the information above and other included data: --I believe the patient requires escalation of care to admission Critical Care Note: I have personally spent 45 minutes of critical care time in the direct management of this patient. This includes bedside care, interpretation of diagnostic studies, and testing, discussion with consultants, patient, and family members, and other required patient management activities. This 45 minutes is in excess of all separately billable procedures. DISPOSITION: Admission Past Med/Surg History Problem List Leukocytosis (Acute) Ureteral stone (Acute) Hydronephrosis (Acute) SAVANNA (acute kidney injury) (Acute) Hypokalemia (Acute) Pyelonephritis (Acute) Prediabetes SAVANNA (acute kidney injury) Complicated UTI (urinary tract infection) Hydronephrosis with urinary obstruction due to ureteral calculus Calculus of proximal right ureter Hypokalemia Left nephrolithiasis Hypercalciuria Sepsis (Acute) Obstruction of left ureteropelvic junction due to stone (Acute) Cough (Acute) Fever (Acute) Headache (Acute) Pulmonary nodule Encounter for pre-operative examination Renal lesion Pre-op testing HTN (hypertension) History of eye surgery FOR BILAT DETACHED RETINA Medical History Hypercalciuria Detached retina, bilateral HX Osteoarthritis Kidney stone Hx of basal cell carcinoma & REMOVED Hyperlipidemia HTN (hypertension) Surgical History History of dilatation and curettage X 2 H/O toe surgery RT FOOT/BIG TOE History of cystoscopy URETERAL STENT PLACED History of colonoscopy History of tonsillectomy History of cataract surgery RT/LEFT Retinal detachment RT/LEFT REPAIRED Family History Father Family history of diabetes mellitus Social History Smoking Status: Never smoker Second Hand Exposure: No; Do You Dip or Chew Tobacco: No; Tobacco Cessation Education Requested by Patient: No Hx Alcohol Use: Yes Alcohol type: beer, wine and hard liquor Hx Substance Use: No Preferred Language: Kiswahili Communication Ability: Effective Visual Impairment: No Limitations Bicycle I Assembler Required: No Beliefs That Will Affect Care: Mandaen Mandaen 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: SCIENTOLOGIST Current Living Situation: Spouse Other Information That Helps Us Care for You: No Feels Safe at Home: Yes Safety Concerns: Feels Safe At This Time Assistive Devices: None Allergies Allergies Allergy/AdvReac Type Severity Reaction Status Date / Time No Known Allergies Allergy Verified 06/30/24 15:08 Home Meds Home Medications Medication Instructions Recorded Confirmed acetaminophen 500 mg tablet 500 - 1,000 mg PO Q6H PRN Pain 10/17/19 06/30/24 (Tylenol Extra Strength) cholecalciferol (vitamin D3) 25 1,000 mcg PO QAM 10/17/19 06/30/24 mcg (1,000 unit) tablet (Vitamin D3) cyanocobalamin (vitamin B-12) 1,000 mcg PO QAM 10/17/19 06/30/24 1,000 mcg tablet,extended release (Vitamin B-12 ER) fluticasone propionate 50 1 spray intranasal QAM 10/17/19 06/30/24 mcg/actuation nasal spray,suspension (Flonase Allergy Relief) multivitamin 1 tab PO QAM 10/17/19 06/30/24 omega [id number]-fish oil 1,000 mg 1 cap PO HS 10/17/19 06/30/24 (120 mg-180 mg) capsule (Fish Oil) atorvastatin 40 mg tablet 40 mg PO DAILY 06/30/24 06/30/24 hydrochlorothiazide 50 mg tablet 50 mg PO DAILY 06/30/24 06/30/24 lifitegrast 5 % eye drops in a 5 drp OPB BID 06/30/24 06/30/24 dropperette (Xiidra) metformin 500 mg tablet,extended 500 mg PO DAILY 06/30/24 06/30/24 release 24 hr Previous Rx's Medication Instructions Recorded potassium chloride 20 mEq 40 meq (2 x 20 mEq) PO QAM #180 04/19/24 tablet,extended release tabs Results & Data (ED) Vital Signs Vital Signs - 24 hr 06/30/24 12:07 06/30/24 14:31 06/30/24 15:04 Temperature 36.2 C L 37.2 C Temperature Source Temporal Artery Scan Oral Pulse Rate 126 H Pulse Rate [Apical] 100 H Pulse Rate [Right Finger] 100 H Pulse Rhythm [Apical] Regular Respiratory Rate 16 18 20 Respiratory Effort / Characteristics Non-Labored Non-Labored Spontaneous Non-Labored Spontaneous Normal for Patient Respiratory Depth Normal Normal Normal Respiratory Pattern Regular Regular Regular Blood Pressure 117/77 Blood Pressure [Left Arm] 109/72 Blood Pressure [Right Arm] 102/74 Blood Pressure Mean 90 Blood Pressure Mean [Left Arm] 84 Blood Pressure Mean [Right Arm] 83 Blood Pressure Position [Left Arm] Semi-fowlers Pulse Oximetry 98 96 96 Oxygen Delivery Method Room Air Room Air Room Air Sepsis Recent Fever Within 48 Hours No Sepsis New/Unexplained Change in Mental Status N/A Sepsis Action Taken by Nursing No Action Required Home Medications Current Medication List: was personally reviewed by me Laboratory Data Attestation: I reviewed the patient's lab results. 06/30/24 12:36 06/30/24 12:36 Lab Results 06/30/24 06/30/24 06/30/24 Range/Units 12:20 12:36 13:57 WBC 13.73 H (4.8-10.8) K/ul RBC 4.32 (4.20-5.40) M/uL Hgb 13.5 (12.0-16.0) g/dl Hct 38.4 (37.0-47.0) % MCV 88.9 (80.0-100.0) fL MCH 31.3 (25.0-34.0) pg MCHC 35.2 (32.0-36.0) g/dL RDW Std Deviation 45.3 (36.4-46.3) fL RDW Coeff of Emmanuelle 13.9 (11.5-14.5) % Plt Count 218 (130-400) K/uL MPV 9.5 (9.4-12.4) fL Immature Gran % (Auto) 1.2 % Neut % (Auto) 90.5 % Lymph % (Auto) 1.9 % [place] % (Auto) 5.3 % Eos % (Auto) 0.7 % Baso % (Auto) 0.4 % Neut # (Auto) 12.42 H (1.40-6.50) K/uL Lymph # (Auto) 0.26 L (1.20-3.40) K/uL [place] # (Auto) 0.73 H (0.11-0.59) K/uL Eos # (Auto) 0.09 (0.00-0.50) K/uL Baso # (Auto) 0.06 (0.00-0.20) K/uL Immature Gran # (Auto) 0.17 (0.01-0.20) K/uL Toxic Granulation 1+ Toxic Vacuolation 1+ Sodium 135 L (136-145) mmol/L Potassium 3.0 L (3.5-5.1) mmol/L Chloride 100 (98-107) mmol/L Carbon Dioxide 24 (21-32) mmol/L Anion Gap 11 (3-11) BUN 30 H (6-23) mg/dl Creatinine 1.45 H (0.6-1.2) mg/dl Est Cr Clr Drug Dosing 44.7 ml/min eGFR 41.04 BUN/Creatinine Ratio 20.7 H (10-20) Glucose 97 (70-99(Fasting)) mg/dl Lactate 1.9 (0.4-2.0) mmol/L Calcium 9.2 (8.6-10.3) mg/dl Magnesium (1.7-2.4) mg/dl Total Bilirubin 0.9 (0.2-1.0) mg/dl AST 41 H (13-39) U/L ALT 30 (7-52) U/L Alkaline Phosphatase 62 (34-104) U/L Total Protein 7.1 (6.0-8.3) gm/dl Albumin 3.9 (3.4-5.0) gm/dl Globulin 3.2 (2.5-4.0) gm/dl Albumin/Globulin Ratio 1.2 (0.9-2) Lipase 16 (11-82) U/L Procalcitonin 10.00 H (0-0.5) ng/ml Urine Color Dark Yellow Urine Appearance Turbid A (Clear) Urine pH 6.0 (4.5-7.5) Ur Specific Henderson 1.021 (1.000-1.030) Urine Protein 4+ H (Negative) Urine Glucose (UA) Negative (Negative) Urine Ketones Trace H (Negative) Urine Blood 2+ H (Negative) Urine Nitrite Positive A (Negative) Urine Bilirubin 1+ H (Negative) Urine Urobilinogen Negative (Negative) Ur Leukocyte Esterase 2+ H (Negative) Urine WBC (Auto) >50 H (0-5) /hpf Urine RBC (Auto) >20 H (0-2) /hpf U Hyaline Cast (Auto) 11-20 H (0-2) /lpf U Epithel Cells (Auto) 11-20 H (0-2) /hpf Urine Bacteria (Auto) 4+ H (None Seen) Granular Casts Present A (None Prsent) /lpf 06/30/24 Range/Units 14:17 WBC (4.8-10.8) K/ul RBC (4.20-5.40) M/uL Hgb (12.0-16.0) g/dl Hct (37.0-47.0) % MCV (80.0-100.0) fL MCH (25.0-34.0) pg MCHC (32.0-36.0) g/dL RDW Std Deviation (36.4-46.3) fL RDW Coeff of Emmanuelle (11.5-14.5) % Plt Count (130-400) K/uL MPV (9.4-12.4) fL Immature Gran % (Auto) % Neut % (Auto) % Lymph % (Auto) % [place] % (Auto) % Eos % (Auto) % Baso % (Auto) % Neut # (Auto) (1.40-6.50) K/uL Lymph # (Auto) (1.20-3.40) K/uL [place] # (Auto) (0.11-0.59) K/uL Eos # (Auto) (0.00-0.50) K/uL Baso # (Auto) (0.00-0.20) K/uL Immature Gran # (Auto) (0.01-0.20) K/uL Toxic Granulation Toxic Vacuolation Sodium (136-145) mmol/L Potassium (3.5-5.1) mmol/L Chloride (98-107) mmol/L Carbon Dioxide (21-32) mmol/L Anion Gap (3-11) BUN (6-23) mg/dl Creatinine (0.6-1.2) mg/dl Est Cr Clr Drug Dosing ml/min eGFR BUN/Creatinine Ratio (10-20) Glucose (70-99(Fasting)) mg/dl Lactate (0.4-2.0) mmol/L Calcium (8.6-10.3) mg/dl Magnesium 1.8 (1.7-2.4) mg/dl Total Bilirubin (0.2-1.0) mg/dl AST (13-39) U/L ALT (7-52) U/L Alkaline Phosphatase (34-104) U/L Total Protein (6.0-8.3) gm/dl Albumin (3.4-5.0) gm/dl Globulin (2.5-4.0) gm/dl Albumin/Globulin Ratio (0.9-2) Lipase (11-82) U/L Procalcitonin (0-0.5) ng/ml Urine Color Urine Appearance (Clear) Urine pH (4.5-7.5) Ur Specific Henderson (1.000-1.030) Urine Protein (Negative) Urine Glucose (UA) (Negative) Urine Ketones (Negative) Urine Blood (Negative) Urine Nitrite (Negative) Urine Bilirubin (Negative) Urine Urobilinogen (Negative) Ur Leukocyte Esterase (Negative) Urine WBC (Auto) (0-5) /hpf Urine RBC (Auto) (0-2) /hpf U Hyaline Cast (Auto) (0-2) /lpf U Epithel Cells (Auto) (0-2) /hpf Urine Bacteria (Auto) (None Seen) Granular Casts (None Prsent) /lpf Administered Medications Diatrizoate Meglumine (Diatrizoate Meglumine 30% 100ml Vial) 10 ml INSTIL UD PRN PRN Reason: Radiology Use Stop: 07/04/24 15:36 Last Admin: 06/30/24 15:42 Dose: 5 ml Documented By: [id number] Potassium Chloride/Sodium Chloride (Normal Saline W/20 Meq Kcl) 20 meq in 1,000 mls @ 100 mls/hr IV .Q10H JEANETTE Stop: 07/01/24 02:54 Last Admin: 06/30/24 17:40 Dose: 100 mls/hr Documented By: RRR Discontinued Medications Sodium Chloride (Nss) 1,000 mls @ 999 mls/hr IV .Q1H1M STA Stop: 06/30/24 13:12 Last Infusion: 06/30/24 14:38 Dose: Infused Documented By: Admin: 06/30/24 12:47 Dose: 999 mls/hr Documented By: MR Ceftriaxone Sodium (Rocephin) 2,000 mg in 50 mls @ 100 mls/hr IV NOW STA Stop: 06/30/24 12:53 Last Infusion: 06/30/24 14:54 Dose: Infused Documented By: Admin: 06/30/24 14:24 Dose: 100 mls/hr Documented By: MR Potassium Chloride (K Abram / Wtr) 10 meq in 100 mls @ 100 mls/hr IV ONE ONE Stop: 06/30/24 14:16 Last Infusion: 06/30/24 15:36 Dose: Infused Documented By: Admin: 06/30/24 14:36 Dose: 100 mls/hr Documented By: MR Sodium Chloride (Nss) 500 mls @ 999 mls/hr IV .Q31M ONE Stop: 06/30/24 13:47 Last Infusion: 06/30/24 15:07 Dose: Infused Documented By: AJLeana Admin: 06/30/24 14:36 Dose: 999 mls/hr Documented By: MR Ioversol (Optiray 320 100ml) 94 ml IV ONCE ONE Stop: 06/30/24 13:52 Last Admin: 06/30/24 13:51 Dose: 94 ml Documented By: BRJayesh Ketorolac Tromethamine (Ketorolac Tromethamine 15 Mg/Ml Vial) 10 mg IV NOW ONE Stop: 06/30/24 12:26 Last Admin: 06/30/24 12:48 Dose: 10 mg Documented By: MR Morphine Sulfate (Morphine Sulfate 2 Mg/Ml Carp) 2 mg IV NOW STA Stop: 06/30/24 12:26 Last Admin: 06/30/24 12:49 Dose: 2 mg Documented By: MR Ondansetron HCl (Ondansetron Inj 2 Mg/Ml 2 Ml Vial) 4 mg IV NOW STA Stop: 06/30/24 12:26 Last Admin: 06/30/24 12:47 Dose: 4 mg Documented By: MR Potassium Chloride (Potassium Chloride Crtab 20 Meq Tabcr) 20 meq PO NOW STA Stop: 06/30/24 13:18 Last Admin: 06/30/24 14:30 Dose: 20 meq Documented By: MR Imaging Data Radiologist's Impression: Retrograde Pyelogram 06/30/24 00:00 FL retrograde includes kub CLINICAL HISTORY: RIGHT STENT COMPARISON STUDY: None FLUOROSCOPY TIME: 10 seconds FLUOROSCOPY IMAGES: 2 EXPOSURE DOSE: 2 mGy FINDINGS: Fluoroscopy was provided for right ureteral stent. IMPRESSION: Intraoperative fluoroscopy. ACT 112: Negative or not required by law. Electronically signed by: Fidel Burris M.D. 06/30/2024 4:04 PM Abdomen/Pelvis CT 06/30/24 12:[address] WITH IV CONTRAST CT DOSE: 1054.96 mGy.cm HISTORY: right abd pain TECHNIQUE: Multiaxial CT images of the abdomen and pelvis were performed following the IV administration of 90 cc of Optiray, A dose lowering technique was utilized adhering to the principles of ALARA. COMPARISON STUDY: 06/01/2020 FINDINGS: There is a trace right pleural effusion. ABDOMEN: There is a tiny cyst in the left hepatic lobe. Otherwise the liver, gallbladder, spleen, pancreas, and adrenal glands are unremarkable. There are a few small calculi at the left kidney. No left hydronephrosis. There is a 7 mm calculus at the right UPJ causing mild right hydronephrosis. There is a striated nephrogram at the right kidney with edema and inflammation at the right kidney consistent with right pyelonephritis. Pelvis: Urinary bladder is nondistended. No calculi seen in the urinary bladder. Uterus and adnexal regions are grossly unremarkable. There is trace low pelvic free fluid. No free air or abscess. There is mild colonic diverticulosis. No acute diverticulitis. No bowel inflammation or obstruction. No enlarged adenopathy. Osseous structures: No acute osseous findings. IMPRESSION: 1. 6 mm calculus proximal right ureter causes mild right hydronephrosis. 2. Acute pyelonephritis at the right kidney. 3. Otherwise as described. ACT 112: Negative or not required by law. The above report was generated using voice recognition software. It may contain grammatical, syntax or spelling errors. Electronically signed by: Fidel Burris M.D. 06/30/2024 2:06 PM Chest X-Ray 06/30/24 12:12 XR chest 1V portable CLINICAL HISTORY: abd pain COMPARISON STUDY: 10/17/2019 FINDINGS: Heart size and pulmonary vasculature are normal. There is interval mild reticular and patchy opacity at the right lung base. No other consolidation or pleural effusion. No pneumothorax. IMPRESSION: Atelectasis versus early pneumonia right lung base. ACT 112: Negative or not required by law. Electronically signed by: Fidel Burris M.D. 06/30/2024 12:40 PM Discharge Plan Visit Data Chief Complaint: Kidney Stone Stated Complaint: UTI, KIDNEY STONE, FEVER, BACK PAIN, STOMACH ACHE ED Provider: Bon Parker Discharge Problem: Pyelonephritis, Hypokalemia, SAVANNA (acute kidney injury), Hydronephrosis, Ureteral stone, Leukocytosis Patient Disposition: Admitted As Inpatient Condition: Serious Discharge Instructions Interventions: ED Discharge Assessment Last Done: 06/30/24 14:35 Discharge Problem: Hydronephrosis Qualifiers: Hydronephrosis type: with renal calculous obstruction Qualified Code(s): N13.2 - Hydronephrosis with renal and ureteral calculous obstruction Leukocytosis Qualifiers: Leukocytosis type: unspecified Qualified Code(s): D72.829 - Elevated white blood cell count, unspecified
--- NOTE | 2024-06-30 12:42 | XRay Report ---
XR chest 1V portable CLINICAL HISTORY: abd pain COMPARISON STUDY: 10/17/2019 FINDINGS: Heart size and pulmonary vasculature are normal. There is interval mild reticular and patch y opacity at the right lung base. No other consolidation or pleural effusion. No pneumothorax. IMPRESSION: Atelectasis versus early pneumonia right lung base. ACT 112: Negative or not required by law. Electronically signed by: Fidel Burris M.D. 06/30/2024 12:40 PM
[2024-06-30] MEDS: ONDANSETRON INJ 2 MG/ML 2 ML VIAL IV STA (12:47)
[2024-06-30] MEDS: SODIUM CHLORIDE 0.9% 1,000 ML IV STA (12:47)
[2024-06-30] MEDS: KETOROLAC TROMETHAMINE 15 MG/ML VIAL IV ONE (12:48)
[2024-06-30] MEDS: MoRPHine SULFATE 2 MG/ML CARP IV STA (12:49)
[2024-06-30 13:03] LABS: Hematocrit (blood only) 38.4 % (37.0-47.0); Hemoglobin 13.5 g/dl (12.0-16.0); Mean Corpuscular Hemoglobin 31.3 pg (25.0-34.0); Mean Corpuscular Hgb Conc 35.2 g/dL (32.0-36.0); Mean Corpuscular Volume 88.9 fL (80.0-100.0); Mean Platelet Volume 9.5 fL (9.4-12.4); Platelet Count 218 K/uL (130-400); RDW Coefficient of Variation 13.9 % (11.5-14.5); RDW Standard Deviation 45.3 fL (36.4-46.3); Red Blood Count 4.32 M/uL (4.20-5.40); White Blood Count 13.73 K/ul (4.8-10.8)
[2024-06-30 13:11] LABS: Appearance Urine Turbid (Clear); Bacteria Urine Automated 4+ (None Seen); Bilirubin Urine 1+ (Negative); Blood Urine 2+ (Negative); Color Urine Dark Yellow; Glucose Urine UA Negative (Negative); Granular Casts Urine Present /lpf (None Prsent); Ketones Urine Trace (Negative); Leukocyte Esterase Urine 2+ (Negative); Nitrite Urine Positive (Negative); Protein Urine 4+ (Negative); RBC Urine Automated >20 /hpf (0-2); Specific Gravity Urine 1.021 (1.000-1.030); Urobilinogen Urine Negative (Negative); WBC Urine Automated >50 /hpf (0-5)
[2024-06-30 13:15] LABS: Albumin Globulin Ratio 1.2 (0.9-2); Albumin Level 3.9 gm/dl (3.4-5.0); BUN Creatinine Ratio 20.7 (10-20); Bilirubin,Total 0.9 mg/dl (0.2-1.0); Calcium 9.2 mg/dl (8.6-10.3); Creatinine Clr Calc Pharmacy 44.7 ml/min; Globulin 3.2 gm/dl (2.5-4.0); Total Protein 7.1 gm/dl (6.0-8.3)
[2024-06-30 13:26] LABS: Basophils # (auto) 0.06 K/uL (0.00-0.20); Basophils % (auto) 0.4 %; Eosinophils # (auto) 0.09 K/uL (0.00-0.50); Eosinophils % (auto) 0.7 %; Immature Granulocytes # (auto) 0.17 K/uL (0.01-0.20); Immature Granulocytes % (auto) 1.2 %; Lymphocytes # (auto) 0.26 K/uL (1.20-3.40); Lymphocytes % (auto) 1.9 %; Monocytes # (auto) 0.73 K/uL (0.11-0.59); Monocytes % (auto) 5.3 %; Neutrophils # (auto) 12.42 K/uL (1.40-6.50); Neutrophils % (auto) 90.5 %; Toxic Granulation 1+; Toxic Vacuolation 1+
[2024-06-30] MEDS: OPTIRAY 320 100ml IV ONE (13:51)
--- NOTE | 2024-06-30 14:08 | CT Scan Report ---
ABDOMEN AND PELVIS CT WITH IV CONTRAST CT DOSE: 1054.96 mGy.cm HISTORY: right abd pain TECHNIQUE: Multiaxial CT images of the abdomen and pelvis were performed following the IV administrat ion of 90 cc of Optiray, A dose lowering technique was utilized adhering to the principles of ALARA. COMPARISON STUDY: 06/01/2020 FINDINGS: There is a trace right pleural effusion. ABDOMEN: There is a tiny cyst in the left hepatic lobe. Otherwise the liver, gallbladder, spleen, gan creas, and adrenal glands are unremarkable. There are a few small calculi at the left kidney. No left hydronephrosis. There is a 7 mm calculus at the right UPJ causing mild right hydronephrosis. There i s a striated nephrogram at the right kidney with edema and inflammation at the right kidney consisten t with right pyelonephritis. Pelvis: Urinary bladder is nondistended. No calculi seen in the urinary bladder. Uterus and adnexal r egions are grossly unremarkable. There is trace low pelvic free fluid. No free air or abscess. There is mild colonic diverticulosis. No acute diverticulitis. No bowel inflammation or obstruction. No enl arged adenopathy. Osseous structures: No acute osseous findings. IMPRESSION: 1. 6 mm calculus proximal right ureter causes mild right hydronephrosis. 2. Acute pyelonephritis at the right kidney. 3. Otherwise as described. ACT 112: Negative or not required by law. The above report was generated using voice recognition software. It may contain grammatical, syntax o r spelling errors. Electronically signed by: Fidel Burris M.D. 06/30/2024 2:06 PM
[2024-06-30] MEDS: cefTRIAXone SODIUM 2,000 MG/50 ML BAG IV STA (14:24)
[2024-06-30] MEDS: POTASSIUM CHLORIDE CRTAB 20 MEQ TABCR PO STA (14:30)
--- NOTE | 2024-06-30 14:33 | History & Physical Report ---
Date of Service June 30, 2024 Assessment & Plan (1) Hydronephrosis with urinary obstruction due to ureteral calculus: (2) Complicated UTI (urinary tract infection): (3) SAVANNA (acute kidney injury): Plan: Patient is 63 year old female with PMH hypokalemia, prediabetes, HTN, dyslipidemia, history kidney stones presented to ER with c/o right flank pain x 2 days. Fever 100.4 F during the night In ER Afebrile, P: 126, R: 16, BP 117/77, 98% on room air WBC: 13. Cr: 1.45. (Baseline Cr: 0.7). Lactate: WNL. Procalcitonin: 10. UA: consistent with infection CT abdomen pelvis: 1. 6 mm calculus proximal right ureter causes mild right hydronephrosis. Acute pyelonephritis at the right kidney. In ER given 1500ml NSS, Rocephin 2 g IV, Toradol 10 mg IV, Zofran 4 mg IV, morphine 2 mg IV Monitor on telemetry Keep n.p.o. until seen by urology Urology consulted. Plans to take patient now for urgent cystoscopy and right ureteral stent Urine culture pending Continue Rocephin IVF Hold home HCTZ secondary to soft BP's and SAVANNA. Would avoid NSAIDs with SAVANNA. Pain control with Tylenol, oxycodone, morphine Strain urine Start Flomax On monitor appears sinus tachycardia. Obtain EKG to further clarify. CBC, BMP in am (4) Hypokalemia: Plan: Acute on chronic hypokalemia K: 3.0 In ER given 1 K rider, 20meq KCL Replace and monitor Resume home KCl 40meq po daily (5) HTN (hypertension): Plan: Hold HCTZ (6) Hyperlipidemia: Plan: Continue atorvastatin (7) Prediabetes: Plan: A1c: 5.5 on 09/17/23 Hold home metformin Random glucose: 97 Monitor am glucose. May need to add novolog sliding scale DVT Prophylaxis SCDs for now Admit med tele Full Code as per discussion with pt Follows with Dr Aj for routine care Pt was seen and care coordinated with Dr Kurtz. See addendum I spent a total of 65 minutes reviewing notes, outpatient records, labs, medication, coordinating, documenting and providing care for this patient excluding time spent in the performance of separately billed services and excluding time spent by another provider/QHP. History of Present Illness Chief Complaint: Flank pain, fever Primary Care Provider: Km Aj DO Patient is 63 year old female with PMH hypokalemia, prediabetes, HTN, dysl ipidemia, history kidney stones presented to ER with c/o right flank pain x 2 days. Patient reports 2 days ago started with right flank discomfort. Last night had fever 100.4 F. Yesterday flank pain started to radiate to right abdomen. Complains of nausea and dry heaves. Denies vomiting or diarrhea. Has not ate since yesterday. Denies dysuria, hematuria, urinary frequency, urinary retention, diarrhea, constipation, SOLIS, dizziness, syncope, vision changes, neck pain, CP, SOB, cough, sore throat, rhinorrhea, weakness, extremity edema, rashes. Allergies Allergy/AdvReac Type Severity Reaction Status Date / Time No Known Allergies Allergy Verified 06/30/24 15:08 Home Medications Medication Instructions Recorded Confirmed Type acetaminophen 500 mg tablet 500 - 1,000 mg PO Q6H PRN Pain 10/17/19 06/30/24 History (Tylenol Extra Strength) cholecalciferol (vitamin D3) 25 1,000 mcg PO QAM 10/17/19 06/30/24 History mcg (1,000 unit) tablet (Vitamin D3) cyanocobalamin (vitamin B-12) 1,000 mcg PO QAM 10/17/19 06/30/24 History 1,000 mcg tablet,extended release (Vitamin B-12 ER) fluticasone propionate 50 1 spray intranasal QAM 10/17/19 06/30/24 History mcg/actuation nasal spray,suspension (Flonase Allergy Relief) multivitamin 1 tab PO QAM 10/17/19 06/30/24 History omega 0-kfm-fjs-fish oil 1,000 mg 1 cap PO HS 10/17/19 06/30/24 History (120 mg-180 mg) capsule (Fish Oil) potassium chloride 20 mEq 40 meq (2 x 20 mEq) PO QAM #180 04/19/24 06/30/24 Rx tablet,extended release tabs atorvastatin 40 mg tablet 40 mg PO DAILY 06/30/24 06/30/24 History hydrochlorothiazide 50 mg tablet 50 mg PO DAILY 06/30/24 06/30/24 History lifitegrast 5 % eye drops in a 5 drp OPB BID 06/30/24 06/30/24 History dropperette (Xiidra) metformin 500 mg tablet,extended 500 mg PO DAILY 06/30/24 06/30/24 History release 24 hr Past Med/Surg History Problem List Leukocytosis (Acute) Ureteral stone (Acute) Hydronephrosis (Acute) SAVANNA (acute kidney injury) (Acute) Hypokalemia (Acute) Pyelonephritis (Acute) Prediabetes SAVANNA (acute kidney injury) Complicated UTI (urinary tract infection) Hydronephrosis with urinary obstruction due to ureteral calculus Calculus of proximal right ureter Hypokalemia Left nephrolithiasis Hypercalciuria Sepsis (Acute) Obstruction of left ureteropelvic junction due to stone (Acute) Cough (Acute) Fever (Acute) Headache (Acute) Pulmonary nodule Encounter for pre-operative examination Renal lesion Pre-op testing HTN (hypertension) History of eye surgery FOR BILAT DETACHED RETINA Medical History Hypercalciuria Detached retina, bilateral HX Osteoarthritis Kidney stone Hx of basal cell carcinoma & REMOVED Hyperlipidemia HTN (hypertension) Surgical History History of dilatation and curettage X 2 H/O toe surgery RT FOOT/BIG TOE History of cystoscopy URETERAL STENT PLACED History of colonoscopy History of tonsillectomy History of cataract surgery RT/LEFT Retinal detachment RT/LEFT REPAIRED Family History Father Family history of diabetes mellitus Social History Smoking Status: Never smoker Second Hand Exposure: No; Do You Dip or Chew Tobacco: No; Hx Alcohol Use: Yes Alcohol type: beer, wine and hard liquor Hx Substance Use: No Preferred Language: Greenlandic Communication Ability: Effective Visual Impairment: No Limitations Tile Burner Required: No Beliefs That Will Affect Care: Congregation Congregation Beliefs: LUTHERAN Current Living Situation: Spouse Feels Safe at Home: Yes Assistive Devices: None Review of Systems Review of Systems: All systems reviewed & are unremarkable except as noted in HPI & below Physical Exam Physical Exam: General: no acute distress, WDWN Head: normocephalic, atraumatic Eyes:conjunctiva non-injected, anicteric ENT: normal inspection external ears, nose, mucous membranes dry Neck: supple, trachea midline Lungs: clear, no respiratory distress, no wheezing/rhonchi/rales CV: tachycardic rate, 104, regular rhythm, no murmur, no pretibial edema Abd: normal BS, soft, +tenderness to palpation right abdomen, right flank Ext: no cyanosis, no calf tenderness Neuro: A&O x 3, no focal deficits noted, normal affect Skin: warm, dry Results & Data Results & Data Vital Signs (Past 12 Hours) Vital Signs Temp Pulse Pulse Resp BP BP Pulse Ox 06/30/24 14:31 100 H 18 102/74 96 06/30/24 12:07 36.2 C L 126 H 16 117/77 98 O2 Del Method 06/30/24 14:31 Room Air 06/30/24 12:07 Room Air Laboratory Results Short CBC 06/30/24 Range/Units 12:36 WBC 13.73 H (4.8-10.8) K/ul Hgb 13.5 (12.0-16.0) g/dl Hct 38.4 (37.0-47.0) % Plt Count 218 (130-400) K/uL BMP 06/30/24 12:36 Sodium 135 L Potassium 3.0 L Chloride 100 Carbon Dioxide 24 BUN 30 H Creatinine 1.45 H Glucose 97 Calcium 9.2 Liver Function 06/30/24 Range/Units 12:36 Total Bilirubin 0.9 (0.2-1.0) mg/dl AST 41 H (13-39) U/L ALT 30 (7-52) U/L Alkaline Phosphatase 62 (34-104) U/L Albumin 3.9 (3.4-5.0) gm/dl Urine 06/30/24 Range/Units 12:20 Urine Color Dark Yellow Urine Appearance Turbid A (Clear) Urine pH 6.0 (4.5-7.5) Ur Specific [place] 1.021 (1.000-1.030) Urine Protein 4+ H (Negative) Urine Glucose (UA) Negative (Negative) Diagnostic Findings Retrograde Pyelogram 06/30/24 00:00 FL retrograde includes kub CLINICAL HISTORY: RIGHT STENT COMPARISON STUDY: None FLUOROSCOPY TIME: 10 seconds FLUOROSCOPY IMAGES: 2 EXPOSURE DOSE: 2 mGy FINDINGS: Fluoroscopy was provided for right ureteral stent. IMPRESSION: Intraoperative fluoroscopy. ACT 112: Negative or not required by law. Electronically signed by: Fidel Burris M.D. 06/30/2024 4:04 PM Abdomen/Pelvis CT 06/30/24 12:[address] WITH IV CONTRAST CT DOSE: 1054.96 mGy.cm HISTORY: right abd pain TECHNIQUE: Multiaxial CT images of the abdomen and pelvis were performed following the IV administration of 90 cc of Optiray, A dose lowering technique was utilized adhering to the principles of ALARA. COMPARISON STUDY: 06/01/2020 FINDINGS: There is a trace right pleural effusion. ABDOMEN: There is a tiny cyst in the left hepatic lobe. Otherwise the liver, gallbladder, spleen, pancreas, and adrenal glands are unremarkable. There are a few small calculi at the left kidney. No left hydronephrosis. There is a 7 mm calculus at the right UPJ causing mild right hydronephrosis. There is a striated nephrogram at the right kidney with edema and inflammation at the right kidney consistent with right pyelonephritis. Pelvis: Urinary bladder is nondistended. No calculi seen in the urinary bladder. Uterus and adnexal regions are grossly unremarkable. There is trace low pelvic free fluid. No free air or abscess. There is mild colonic diverticulosis. No acute diverticulitis. No bowel inflammation or obstruction. No enlarged adenopathy. Osseous structures: No acute osseous findings. IMPRESSION: 1. 6 mm calculus proximal right ureter causes mild right hydronephrosis. 2. Acute pyelonephritis at the right kidney. 3. Otherwise as described. ACT 112: Negative or not required by law. The above report was generated using voice recognition software. It may contain grammatical, syntax or spelling errors. Electronically signed by: Fidel Burris M.D. 06/30/2024 2:06 PM Chest X-Ray 06/30/24 12:12 XR chest 1V portable CLINICAL HISTORY: abd pain COMPARISON STUDY: 10/17/2019 FINDINGS: Heart size and pulmonary vasculature are normal. There is interval mild reticular and patchy opacity at the right lung base. No other consolidation or pleural effusion. No pneumothorax. IMPRESSION: Atelectasis versus early pneumonia right lung base. ACT 112: Negative or not required by law. Electronically signed by: Fidel Burris M.D. 06/30/2024 12:40 PM Supervising Physician Co-Signing Physician Notes I have seen and discussed the case with the collaborating advanced practitioner. I agree with the above H&P. I have reviewed and confirmed the patients medical history, the findings on physical examination, and the patients diagnosis and treatment plan with Steve FAY and agree with the information documented. Evalauted patient s/p stent Cystoscopy on 06/30. Patent with sepsis and doing well s/p procedure. Denies any pain post op. #Sepsis 2/2 obstructive stone #SAVANNA continue Abx Urology following narrow abx based upon cultures rest of plan as above I spent a total of 25 minutes coordinating, documenting, and providing care for this patient excluding time spent in the performance of separately billed services. All of the aforementioned completed outside of collaborating with the assigned advanced practitioner for a full treatment plan. I have reviewed the advanced practitioner's documentation, and I agree with, and take responsibility for the plan of care
[2024-06-30] MEDS: POTASSIUM CHLORIDE / WTR 10 MEQ/100 ML PLCT IV ONE (14:36)
[2024-06-30] MEDS: SODIUM CHLORIDE 0.9% 500 ML IV ONE (14:36)
--- NOTE | 2024-06-30 14:43 | Urology Consultation ---
Date of Consultation June 30, 2024 Assessment & Plan (1) Calculus of proximal right ureter: 63-year-old female with history of nephrolithiasis presented for evaluation of right flank pain. CT demonstrated a 6 mm calculus in the proximal right ureter and findings suggestive of right pyelonephritis. Urinalysis concerning for infection. Patient currently afebrile, tachycardic Labs reviewedcreatinine 1.45, WBC 13.73 Urinalysis suspicious for infection Urine and blood cultures are pending Patient given IV ceftriaxone in the emergency department Continue broad-spectrum antibiotics and narrow per sensitivity data when available Recommend cystoscopy and right ureteral stent placement given obstructing right ureteral stone and concern for infection Patient is agreeable and understands that stone will be treated in the future after acute infection Proceed to OR for cystoscopy and right ureteral stent placement Risks and benefits of procedure reviewed with patient by Dr. Marni Davison n.p.o. for procedure Continue antibiotics, supportive care and medical management per hospital medicine service Supervising Physician Co-Signing Physician Notes Discussed patient with ZENA. Agree with plan. Saw patient personally. Recommended cystoscopy with right stent placement due to concern for infected kidney stone with obstruction. Consent obtained. Patient marked. History of Present Illness Reason for Consultation: right ureteral stone History of Present Illness This is a 63-year-old female who follows with urology for nephrolithiasis. She presented to the emergency department today for evaluation of right flank pain that began 2 days ago. On arrival to ED, she was afebrile, tachycardic, normotensive. Lab work showed leukocytosis of 13.73, neutrophils 12.42, hemoglobin 13.5, sodium 135, potassium 3.0, creatinine 1.45, and procalcitonin 10.0. Urinalysis showed turbid urine, 2+ blood, positive nitrates, 2+ LE, >50 WBC, >20 RBC, 11-20 epithelial cells and 4+ bacteria. Urine and blood cultures obtained. Workup included CT abdomen pelvis which demonstrated a 6 mm calculus in the proximal right ureter causing mild right hydronephrosis, striated nephrogram of the right kidney suggestive of pyelonephritis; nonobstructing small left renal calculi. ED course: IV fluids, Rocephin, ondansetron, ketorolac, morphine, K rider. Urology is consulted for right ureteral calculus and concern for infection. Patient seen and examined in the emergency department. at bedside. She reports right flank pain started 2 days ago and has been intermittent since then. She developed some nausea the following day. Voiding without difficulty. No dysuria or hematuria. She had sips of water this morning, no food since yesterday. Prior history of left URS and laser lithotripsy in 2019. Allergies Allergy/AdvReac Type Severity Reaction Status Date / Time No Known Allergies Allergy Verified 08/08/23 10:42 Home Medications Medication Instructions Recorded Confirmed Type acetaminophen 500 mg tablet 500 - 1,000 mg PO Q6H PRN Pain 10/17/19 08/08/23 History (Tylenol Extra Strength) cholecalciferol (vitamin D3) 25 1,000 mcg PO QAM 10/17/19 08/08/23 History mcg (1,000 unit) tablet (Vitamin D3) cyanocobalamin (vitamin B-12) 1,000 mcg PO QAM 10/17/19 08/08/23 History 1,000 mcg tablet,extended release (Vitamin B-12 ER) fluticasone propionate 50 1 spray intranasal QAM 10/17/19 08/08/23 History mcg/actuation nasal spray,suspension (Flonase Allergy Relief) multivitamin 1 tab PO QAM 10/17/19 08/08/23 History omega 6-nhi-zwx-fish oil 1,000 mg 1 cap PO HS 10/17/19 08/08/23 History (120 mg-180 mg) capsule (Fish Oil) pravastatin 40 mg tablet 40 mg PO HS 10/17/19 08/08/23 History hydrochlorothiazide 50 mg tablet 50 mg PO BID #180 tabs 09/19/23 Rx potassium chloride 20 mEq 40 meq (2 x 20 mEq) PO QAM #180 04/19/24 Rx tablet,extended release tabs potassium citrate 10 mEq (1,080 10 meq PO DAILY #90 tabs 04/19/24 Rx mg) tablet,extended release Patient History Medical History Hypercalciuria Detached retina, bilateral HX Osteoarthritis Kidney stone Hx of basal cell carcinoma & REMOVED Hyperlipidemia HTN (hypertension) Surgical History History of dilatation and curettage X 2 H/O toe surgery RT FOOT/BIG TOE History of cystoscopy URETERAL STENT PLACED History of colonoscopy History of tonsillectomy History of cataract surgery RT/LEFT Retinal detachment RT/LEFT REPAIRED Family History Father Family history of diabetes mellitus Social History Smoking Status: Never smoker Second Hand Exposure: No; Do You Dip or Chew Tobacco: No; Hx Alcohol Use: Yes Alcohol type: beer, wine and hard liquor Hx Substance Use: No Preferred Language: Divehi Communication Ability: Effective Visual Impairment: No Limitations Machine Try Out Setter Required: No Beliefs That Will Affect Care: Tenriism Tenriism Beliefs: GNOSTICISM Current Living Situation: Spouse and Family Feels Safe at Home: Yes Assistive Devices: Glasses Review of Systems Review of Systems: All systems reviewed & are unremarkable except as noted in HPI & below Physical Exam Constitutional: well developed and well nourished; no acute distress Respiratory: normal respiratory effort; no respiratory distress and no labored breathing Cardiovascular: Rate/Rhythm: + tachycardic Gastrointestinal (Abdomen): Inspection/Auscultation: abdomen normal to inspection Musculoskeletal: Head/Neck/Chest: normocephalic Neurologic: moves all extremities and awake Psychiatric: Orientation: alert and oriented x 3 Results & Data Vital Signs (Past 12 Hours) Vital Signs Temp Pulse Pulse Resp BP BP Pulse Ox 06/30/24 14:31 100 H 18 102/74 96 06/30/24 12:07 36.2 C L 126 H 16 117/77 98 O2 Del Method 06/30/24 14:31 Room Air 06/30/24 12:07 Room Air PG Care Time/CCT Total # of Minutes Spent Total Time Spent with Patient: Total time spent is greater than 50% in coordination of care (as documented) at patient's floor/unit and/or counseling patient: Coding Level of Care Code 32853 IN/OBS CONSULT LVL 4,60M Diagnoses Calculus of proximal right ureter N20.1
[2024-06-30] MEDS ORDERED: PROPOFOL IV EMULSION 10 MG/ML 20 ML VIAL IV ONE ×2 (14:54→15:31)
[2024-06-30] MEDS ORDERED: LIDOCAINE 2% 2 ML VIAL/AMP(20MG/ML) INFIL ONE (14:54)
[2024-06-30] MEDS ORDERED: fentaNYL citrate PF 100 MCG/2 ML VIAL ONE (14:54)
[2024-06-30] MEDS ORDERED: MIDAZOLAM HCL 1 MG/ML 2ML VIAL ONE (14:54)
--- NOTE | 2024-06-30 15:04 | Anesthesiology Consultation ---
Date of Service June 30, 2024 Assessment & Plan Chart Review Chart Review: Acceptable Risk for Surgery and Patient NOT seen in Pre Admission Testing Consults Requested none History Surgery Operation Date: 06/30/24 09:40 Proposed Procedures p Cystoscopy, Right Ureteral Stent Insertion - Ld Grider MD Height/Weight Height: 5 ft 8 in Weight: 77.9 kg Allergies Allergy/AdvReac Type Severity Reaction Status Date / Time No Known Allergies Allergy Verified 08/08/23 10:42 Medications Home Medications Medication Instructions Recorded Confirmed Last Taken acetaminophen 500 mg tablet 500 - 1,000 mg PO Q6H PRN Pain 10/17/19 08/08/23 11/14/19 10:00 (Tylenol Extra Strength) cholecalciferol (vitamin D3) 25 1,000 mcg PO QAM 10/17/19 08/08/23 06/15/20 mcg (1,000 unit) tablet (Vitamin D3) cyanocobalamin (vitamin B-12) 1,000 mcg PO QAM 10/17/19 08/08/23 06/15/20 1,000 mcg tablet,extended release (Vitamin B-12 ER) fluticasone propionate 50 1 spray intranasal QAM 10/17/19 08/08/23 06/14/20 mcg/actuation nasal spray,suspension (Flonase Allergy Relief) multivitamin 1 tab PO QAM 10/17/19 08/08/23 06/15/20 omega 5-csp-ijh-fish oil 1,000 mg 1 cap PO HS 10/17/19 08/08/23 06/14/20 (120 mg-180 mg) capsule (Fish Oil) pravastatin 40 mg tablet 40 mg PO HS 10/17/19 08/08/23 06/14/20 hydrochlorothiazide 50 mg tablet 50 mg PO BID #180 tabs 09/19/23 Unknown potassium chloride 20 mEq 40 meq (2 x 20 mEq) PO QAM #180 04/19/24 Unknown tablet,extended release tabs potassium citrate 10 mEq (1,080 10 meq PO DAILY #90 tabs 04/19/24 Unknown mg) tablet,extended release Past Medical History Medical History Hypercalciuria Detached retina, bilateral HX Osteoarthritis Kidney stone Hx of basal cell carcinoma & REMOVED Hyperlipidemia HTN (hypertension) Past Family History Family History Father Family history of diabetes mellitus Past Surgical History Surgical History History of dilatation and curettage X 2 H/O toe surgery RT FOOT/BIG TOE History of cystoscopy URETERAL STENT PLACED History of colonoscopy History of tonsillectomy History of cataract surgery RT/LEFT Retinal detachment RT/LEFT REPAIRED Social History Smoking Status: Never smoker tobacco type: cigarettes Do You Dip or Chew Tobacco: No Hx Alcohol Use: Yes Alcohol type: beer, wine and hard liquor alcohol intake frequency: a few times a week Hx Substance Use: No substance use type: does not use Physical Exam Vital Signs Last Vital Signs Temp 36.2 C L 06/30/24 12:07 Pulse 100 H 06/30/24 14:31 Resp 18 06/30/24 14:31 BP 102/74 06/30/24 14:31 Pulse Ox 96 06/30/24 14:31 O2 Del Method Room Air 06/30/24 14:31 Testing Laboratory Results 06/30/24 12:36 06/30/24 12:36 Urine Color Dark Yellow 06/30/24 12:20 Urine Appearance Turbid (Clear) A 06/30/24 12:20 Urine pH 6.0 (4.5-7.5) 06/30/24 12:20 Ur Specific [place] 1.021 (1.000-1.030) 06/30/24 12:20 Urine Protein 4+ (Negative) H 06/30/24 12:20 Urine Glucose (UA) Negative (Negative) 06/30/24 12:20 Urine Ketones Trace (Negative) H 06/30/24 12:20 Urine Nitrite Positive (Negative) A 06/30/24 12:20 Ur Leukocyte Esterase 2+ (Negative) H 06/30/24 12:20 Urine WBC (Auto) >50 /hpf (0-5) H 06/30/24 12:20 Urine RBC (Auto) >20 /hpf (0-2) H 06/30/24 12:20 U Hyaline Cast (Auto) 11-20 /lpf (0-2) H 06/30/24 12:20 U Epithel Cells (Auto) 11-20 /hpf (0-2) H 06/30/24 12:20 Urine Bacteria (Auto) 4+ (None Seen) H 06/30/24 12:20
[2024-06-30] MEDS ORDERED: DROPERIDOL 5 MG/2 ML VIAL IV PRN (15:19)
[2024-06-30] MEDS ORDERED: ATROPINE SULFATE 0.1 MG/ML 10ML SYR IV PRN (15:19)
[2024-06-30] MEDS ORDERED: ePHEDrine sulfate 50 MG/ML AMP IV PRN (15:19)
[2024-06-30] MEDS ORDERED: fentaNYL citrate PF 100 MCG/2 ML VIAL IV PRN (15:19)
[2024-06-30] MEDS: DIATRIZOATE MEGLUMINE 30% 100ML VIAL INSTIL PRN (15:42)
--- NOTE | 2024-06-30 15:46 | Operative Report ---
PG Post Operative Report Pre & Post Diagnosis Operation Date: 06/30/24 09:40 Pre-Op Diagnosis: Right ureteral stone Post-Op Diagnosis: Right ureteral stone I identified the patient and participated in the time-out.: Yes Procedure Operation Date: 06/30/24 09:40 Actual Procedures p Cystoscopy, retrograde pyelogram with radiographic interpretation right Uret eral Stent Insertion(Right) - Ld Grider MD Surgeon Ld Griedr MD Carbonizer None Estimated Blood Loss 0 Findings See Below Moderate right hydronephrosis. Small amount of purulence from right UO. Retrograde showed no extravasation. Stent in appropriate position Specimens None Drains 6 [place] by 24 cm right ureteral stent Anesthesia Type MAC Complications none Indications 63-year-old female with a right proximal obstructing ureteral calculus and concern for infection Description of Procedure After informed consent was obtained, the patient was transported operative suite. MAC anesthesia was induced. The patient was placed in dorsolithotomy position prepped and draped in a sterile fashion. They received preoperative ceftriaxone for antibiotic prophylaxis. An appropriate surgical timeout was performed. A 22 [place] rigid scope was inserted per urethra into the bladder. Gr cystoscopy revealed no stones or lesions. Bladder was consistent with infection and cystitis. I turned my attention the right ureteral orifice and intubated this with a 5 [place] open-ended catheter. A right retrograde pyelogram was shot which showed moderate hydronephrosis. A sensor wire was advanced into the kidney and confirmed fluoroscopically. There is a small amount of purulent output from the right UO. A 6 [place] by 24 cm right ureteral stent was deployed with a good proximal coil in the renal pelvis and a good distal coil noted in the bladder, confirmed fluoroscopically and under direct visualization, respectively. The bladder was emptied and the scope was removed. This conclu ded the end of the case. All counts were correct at the end of the case. I was present, scrubbed, and actively participated for the entirety of the procedure. I attest to the content of the Intraoperative Record and any orders documented therein. Any exceptions are noted below.
--- NOTE | 2024-06-30 16:05 | Fluoroscopy Report ---
FL retrograde includes kub CLINICAL HISTORY: RIGHT STENT COMPARISON STUDY: None FLUOROSCOPY TIME: 10 seconds FLUOROSCOPY IMAGES: 2 EXPOSURE DOSE: 2 mGy FINDINGS: Fluoroscopy was provided for right ureteral stent. IMPRESSION: Intraoperative fluoroscopy. ACT 112: Negative or not required by law. Electronically signed by: Fidel Burris M.D. 06/30/2024 4:04 PM
--- NOTE | 2024-06-30 16:19 | Anesthesiology Progress Note ---
Date of Service June 30, 2024 Anesthesia Post Procedure Vital Signs Vital Signs: Temp Pulse Pulse Pulse Resp BP BP 06/30/24 16:15 98 H 20 94/62 L 06/30/24 16:10 36.8 C 94 H 17 92/61 L 06/30/24 16:00 93 H 17 94/64 L 06/30/24 15:52 36.2 C L 93 H 19 91/60 L 06/30/24 15:04 37.2 C 100 H 20 109/72 06/30/24 14:31 100 H 18 06/30/24 12:07 36.2 C L 126 H 16 117/77 BP Pulse Ox O2 Del Method O2 Flow Rate 06/30/24 16:15 97 Room Air 0 06/30/24 16:10 95 Room Air 0 06/30/24 16:00 98 Oxymask 4 06/30/24 15:52 98 Oxymask 4 06/30/24 15:04 96 Room Air 06/30/24 14:31 102/74 96 Room Air 06/30/24 12:07 98 Room Air Transfer of Care Handoff Completed per policy Notes Mental Status: alert / awake / arousable Patient Amnestic to Procedure: Yes Nausea / Vomiting: adequately controlled Pain: adequately controlled Airway Patency, RR, SpO2: stable & adequate BP & HR: stable & adequate Hydration State: stable & adequate Anesthetic Complications: no major complications apparent and Pt Satisfied with anesthetic care
[2024-06-30] MEDS ORDERED: POLYETHYLENE (MIRALAX) 17 GM PACK PO PRN (16:55)
[2024-06-30] MEDS: NSS + 20MEQ KCL 20 MEQ/1,000 ML BAG IV SCH (17:40)
[2024-06-30] MEDS: oxyCODONE HCL IR 5 MG TAB (IMMEDIATE RELEASE) PO PRN (17:57)
[2024-06-30] MEDS: TAMSULOSIN HCL 0.4 MG CAP PO SCH (20:10)
[2024-06-30] MEDS: ARTIFICIAL TEARS OP SCH (20:10)
[2024-06-30] MEDS: MoRPHine SULFATE 4 MG/ML 1 ML CARP\\VIAL IV PRN (20:19)
[2024-06-30] MEDS: ONDANSETRON INJ 2 MG/ML 2 ML VIAL IV PRN (20:19)
[2024-06-30] MEDS: ZOLPIDEM TARTRATE 5 MG TAB PO PRN (21:23)
[2024-06-30] MEDS: SODIUM CHLORIDE 0.9% 1,000 ML IV SCH (21:24)
--- OUTSIDE RECORDS SUMMARY | 2024-06-30 23:27 | External Medical Summary | Summary of Care ---
Author Name Unknown Organization [facility] Address [address] [place] [address] Phone [phone] Care Team Providers Care Manager Product Management Name Role Phone Km Aj DO Primary Care Provider Reason for Visit * Reason Comments Follow Up L foot Encounter Details Date Type Department Care Team (Late st Contact Info) Description 04/29/2024 12:40 PM EST Office Visit Podiatry [facility] [address] [place] [phone] Mario Farley DPM [address] [place] [phone] Left foot pain*; Hallux limitus of left foot Allergies Active Allergy Reactions Criticality Noted Date Comments Pollen Other (Please comment) 03/06/2015 Congestion, sinus pressure Ragweed Other (Please comment) 03/06/2015 Congestion, sinus pressure documented as of this encounter (statuses as of 04/30/2024) Medications LOYD MULTIVITAMIN FOR WOMEN PO TABS one tablet daily Active VITAMIN D 400 UNITS PO TABS one tablet daily Active Cyanocobalamin (VITAMIN B12) 100 MCG TABS Take 1 Tablet by mouth in the morning. Active [place]-3-6-9 CAPS Take 1 Cap by mouth every night at bedtime. Active Vitamin A 2400 MCG (8000 UT) CAPS Take 1 Cap by mouth daily. Active Potassium Chloride Karley ER 20 MEQ Oral Tablet Extended Release Take 2 Tablets by mouth in the morning. Pt takes 40 mEq in am.. 1 Active Potassium Citrate ER 10 MEQ (1080 MG) Oral Tablet Extended Release (Urocit-K) Take 1 Tablet by mouth in the morning. 0 Active Xiidra 5 % Ophthalmic Solution (Lifitegrast) Instill 5 Drops into eye 2 times a day. 1 Active hydroCHLOROthiazi de 50 MG Oral Tablet (Hydrodiuril)Rohini cations:HTN, goal below 130/80 Take 1 Tablet by mouth in the morning. Take 1 tab by mouth in the am.. 90 Tablet 3 4 Active metFORMIN HCl ER 500 MG Oral Tablet Extended Release 24 Hour (Glucophage XR)Indications:Pr ediabetes Take 1 Tablet by mouth in the morning. In the morning.. 90 Tablet 3 4 Active Phentermine HCl 37.5 MG Oral TabletIndications :Overweight (BMI 25.0-29.9) Take 1 Tablet by mouth daily before breakfast. 90 Tablet 1 4 Active Azithromycin 250 MG Oral Tablet (Zithromax Z-Geovany) Take two tablets by mouth on first day, then 1 tablet daily until gone 6 Tablet 4 Active Fluticasone Propionate 50 MCG/ACT Nasal Suspension (Flonase)Indicati ons:Acute sinusitis USE 2 SPRAYS IN EACH NOSTRIL DAILY 48 g 1 4 Active Atorvastatin Calcium 40 MG Oral Tablet (Lipitor)Indicati ons:Hyperlipidemi a with target LDL less than 160 Take 1 Tablet by mouth in the morning. 90 Tablet 1 4 Active Hospital, Clinic, or Other Facility Administered Medication Ordered Dose Route Frequency Start Date End Date Status bupivacaine (Sensorcaine) 0.5 % inj 5 mgIndications:Left foot pain,Hallux limitus of left foot 5 mg IJ ONCE 04/30/2024 04/30/2024 Active dexamethasone sodium phosphate 20 MG/5ML inj 4 mgIndications:Left foot pain,Hallux limitus of left foot 4 mg IJ ONCE 04/30/2024 04/30/2024 Active betamethasone acet & sod phos (Celestone Soluspan) inj 6 mgIndications:Left foot pain,Hallux limitus of left foot 6 mg IJ ONCE 04/30/2024 04/30/2024 Active documented as of this encounter (statuses as of 04/30/2024) Active Problems Problem Noted Date Diagnosed Date Pain and swelling of knee, right 11/28/2021 HTN, goal below 130/80 04/14/2018 Hyperlipidemia with target LDL less than 160 History of retinal detachment 01/28/2017 Overview (01/28/2017): Bilateral, unknown cause, surgical repair History of nonmelanoma skin cancer 01/16/2017 Overview (01/16/2017): Hx of BCC on right chest - 2014 Hearing loss, bilateral 01/10/2017 Overview (01/10/2017): Bilateral hearing aids Other allergic rhinitis 08/13/2000 Overview (01/28/2017): ICD-10 update of inactive term FAMILY HX-BREAST MALIG 08/13/2000 documented as of this encounter (statuses as of 04/30/2024) Resolved Problems Problem Noted Date Diagnosed Date Resolved Date Sepsis due to Escherichia co li with acute organ dysfunction and septic shock 10/26/201901/16 Elevated blood pressure, situational 01/08/2018 10/20/2018 Neoplasm of uncertain behavior of skin 06/22/2014 01/16/2017 History of basal cell carcinoma 06/22/2014 01/16/2017 MALIG HARMONY SKIN LEG 12/21/2004 7 documented as of this encounter (statuses as of 04/30/2024) Immunizations Name Administration Dates Next Due Covid-19 Ad26, Single Dose (Narciso/J&J) 08/24/2020 Seasonal Influenza Vac., MDV , IM, 0.5 mL (Fluzone) 02/17/2015,01/05/2014,02/15/2013, 009,02/03/2003,02/02/2002 Seasonal Influenza, PF, 6 M & above, IM , (FluLaval or Fluzone) 04/03/2018 TD - Tetanus/Diptheria (ADULT) 08/13/2000 TDAP, Age 7 and older, IM (Adacel) 07/10/2010 documented as of this encounter Social History Tobacco Use Types Packs/Day Years Used Date Smoking Tobacco: Former Cigarettes 2 19 1 978 - 1996 Smokeless Tobacco: Never Comments:"quit years ago" Alcohol Use Standard Drinks/Week Comments Yes 0 (1 standard drink = 0.6 oz pur e alcohol) occasional PHQ-2 Answer Date Recorded PHQ Adult Total Score 0 09/19/2022 Hunger Vital Sign Answer Date Recorded Within the past 12 months, y ou worried that your food would run out before you got the money to buy more. Never true 09/05/19 24 Within the past 12 months, t he food you bought just didn't last and you didn't have money to get more. Never true 09/05/2023 Childcare Answer Date Recorded Do you feel overwhelmed with taking care of a child, family member or friend? No 09/05/2023 Does your family need help f inding childcare? (Household - for ages 0-17 years) Not on file 09/05/2023 Clothing Answer Date Recorded Have you been unable to get clothing when it was really needed? No 09/05/2023 Is your family able to get c lothes or diapers when needed? (Household - for ages 0-17 years) Not on file 09/05/2023 Personal Safety Answer Date Recorded Do you feel unsafe or have concerns for your saf ety? No 09/05/2023 Do you have concerns for you r family's safety? (Household - for ages 0-17 years) Not on file 09/05/2023 Utilities Answer Date Recorded Do you have trouble paying y our heating, water, or electric bill? No 09/05/2023 Is your family able to pay t he heat, water, or electric bill? (Household - for ages 0-17 years) Not on file 09/05/2023 Does your family have access to good internet? (Household - for ages 0-17 years) Not on file 09/05/2023 Employment Status Answer Date Recorded Are you unemployed or without regular income? No 09/05/2023 Does the household have a re gular source of income? (Household - for ages 0-17 years) Not on file 09/05/2023 Social Connections Answer Date Recorded How often do you feel lonely or isolated from th ose around you? Never 09/05/2023 Financial Resource Strain Answer Date R ecorded Do you have any trouble payi ng for your medications, or do you think you might in the future? No 09/05/2023 Does your family have troubl e paying for medicine? (Household - for ages 0-17 years) Not on file 09/05/2023 Transportation Needs Answer Date Record ed READ ONLY Do you have troubl e getting a ride to medical visits or work? Never True 09/05/2023 Does your family have a hard time getting a ride to doctors visits? (Household - for ages 0-17 years) Not on file 09/05/2023 Has lack of transportation k ept you from medical appointments, meetings, work, or from getting things needed for daily living? Check all that apply. (Adult - for ages 18 years and over) Not on file 09/05/2023 Do you (or your family) have trouble finding or paying for a ride (transportation)? (Household - for ages 0-17 years) Not on file 09/05/2023 Housing Stability Answer Date Recorded Do you currently live in a s helter or have no steady place to sleep at night? No 09/05/2023 READ ONLY Do you think you a re at risk of becoming homeless? No 09/05/2023 Does your family worry about paying for your home or becoming homeless? (Household - for ages 0-17 years) Not on file 0 09/05/2023 Are you homeless or worried that you might be in the future? (Adult - for ages 18 years and over) Not on file Are you (or your family) ankush eless or worried that you might be in the future? (Household - for ages 0-17 years) Not on file Food Insecurity Answer Date Recorded Do you need food for this week? No 09/05/2023 Are you able to get enough f ood for your family? (Household - for ages 0-17 years) Not on file 09/05/2023 Does your family need food t his week? (Household - for ages 0-17 years) Not on file 09/05/2023 Do you always have enough fo od for your family? 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 Pt states for the past several months she has noticed increased pain to theleft great toe. She has not done anything to treat her symptoms. She has been wearing a compressionsleeve to the left. She did have surgery to the right foot for a similar problem. She was seen by Dr. Glynn in [place] with [facility]. She wears sneakers and boots/shoes. She is currently retired. Former smoker. 10/14/2023- Today, pt would like to receive another steroid injection. Did well previously. Denies any other complaints. 01/20/2024- Today, pt presents for injection to the left foot. She also has a new complaint today of left foot pain. Has pain when she flexes her toes down. Started after doing a lot of walking,cleaning and moving. She denies any other complaints. 04/29/2024- Today, pt presents for follow up and repeat injection of the left 1st MPJ. Denies any other complaints. Past Medical History: Diagnosis Date Allergic rhinitis due to other allergen Depressive disorder, not elsewhere classified Depression -pp HTN, goal below 130/80 04/14/2018 Preeclampsia Retinal detachment 2017 bilateral, no trauma Past Surgical History: Procedure Laterality Date , INDUCED BY D&E D&E CATARACT SURGERY,COMPLEX Bilateral 2017 REMOVAL OF TONSILS, UNDER AGE 12 age 6 Tonsils Removal,<12 Y/O REPAIR DETACHED RETINA, COMPLEX Bilateral 2016 no trauma - unknown cause Family History Problem Relation Name Age of Onset Cancer Mother breast,dx'd age 45, survived Other (aortic dissection) Mother 60 Diabetes Father DM complic age 76 No Past Hx Sister No Past Hx Brother Other (Other) Other no ovarian/colon cancer Social History Socioeconomic History Marital status: Number of children: 1 Occupational History 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: [employer] Comment: [employer] Tobacco Use Smoking status: Former Current packs/day: 0.00 Average packs/day: 2.0 packs/day for 19.0 years (38.0 ttl pk-yrs) Types: Cigarettes Start date: 1977 Quit date: 1996 Years since quittin.0 Smokeless tobacco: Never Tobacco comments: "quit years ago" Vaping Use Vaping status: Never Used Substance and Sexual Activity Alcohol use: Yes Comment: occasional Drug use: No Sexual activity: Yes Partners: Male control/protection: Surgical Comment: vasectomy Other Topics Concern Service No Blood Transfusions No Caffeine Concern No Occupational Exposure No Hobby Hazards No Sleep Concern No Stress Concern No Weight Concern No Special Diet No Exercise No Self-Exams Yes Comment: breast, occasional Social Needs Financial Resource Strain: Low Risk (09/05/2023) Financial Resource Strain Do you have any trouble paying for your medications, or do you think you might in the future? (Adult - for ages 18 years and over): No Food Insecurity: No Food Insecurity (09/05/2023) Food Insecurity Do you need food for this week? (Adult - for ages 18 years and over): No Transportation Needs: No Transportation Needs (09/05/2023) Transportation Needs Do you have trouble getting a ride to medical visits or work? (Adult - for ages 18 years and over):Never True Social Connections: Socially Integrated (09/05/2023) Social Connections How often do you feel lonely or isolated from those around you? (Adult - for ages 18 years and over): Never Housing Stability: Low Risk (09/05/2023) Housing Stability Do you currently live in a intermediate or have no steady place to sleep at night? (Adult - for ages 18 years and over): No Do you think you are at risk of becoming homeless? (Adult - for ages 18 years and over): No Current Outpatient Medications Medication Sig Dispense Refill LOYD MULTIVITAMIN FOR WOMEN PO TABS one tablet daily VITAMIN D 400 UNITS PO TABS one tablet daily Cyanocobalamin (VITAMIN B12) 100 MCG TABS Take 1 Tablet by mouth in the morning. [place]-3-6-9 CAPS Take 1 Cap by mouth every night at bedtime. Vitamin A 2400 MCG (8000 UT) CAPS Take 1 Cap by mouth daily. Potassium Chloride Karley ER 20 MEQ Oral Tablet Extended Release Take 2 Tablets by mouth in the morning. Pt takes 40 mEq in am.. Potassium Citrate ER 10 MEQ (1080 MG) Oral Tablet Extended Release (Urocit-K) Take 1 Tablet by mouth in the morning. Xiidra 5 % Ophthalmic Solution (Lifitegrast) Instill 5 Drops into eye 2 times a day. hydroCHLOROthiazide 50 MG Oral Tablet (Hydrodiuril) Take 1 Tablet by mouth in the morning. Take 1 tab by mouth in the am.. 90 Tablet 3 metFORMIN HCl ER 500 MG Oral Tablet Extended Release 24 Hour (Glucophage XR) Take 1 Tablet by mouthin the morning. In the morning.. 90 Tablet 3 Phentermine HCl 37.5 MG Oral Tablet Take 1 Tablet by mouth daily before breakfast. 90 Tablet 1 Azithromycin 250 MG Oral Tablet (Zithromax Z-Geovany) Take two tablets by mouth on first day, then 1 tablet daily until gone 6 Tablet 0 Fluticasone Propionate 50 MCG/ACT Nasal Suspension (Flonase) USE 2 SPRAYS IN EACH NOSTRIL DAILY 48 g 1 Atorvastatin Calcium 40 MG Oral Tablet (Lipitor) Take 1 Tablet by mouth in the morning. 90 Tablet 1 No current facility-administered medications for this visit. ALLERGIES: Review of patient's allergies indicates: Allergen Reactions Pollen Other (Please comment) Congestion, sinus pressure Ragweed Other (Please comment) Congestion, sinus pressure REVIEW OF SYSTEMS: CONSTITUTIONAL: No change in weight, No weakness, No fatigue, and No fevers, sweats, or chills EYE: No recent significant change in vision and No eye pain, redness, discharge EARS: No ear pain and No recent change in hearing NOSE: No history of frequent colds or sinusitis PULMONARY: No cough, sputum, or hemoptysis and No recent change in breathing CARDIOVASCULAR: No chest pain and No shortness of breath EXTREMITIES: Left great toe pain SKIN/INTEGUMENTARY: No edema, No rash, and No itching NEUROLOGIC: Normal balance, No headaches, No seizures, and No weakness PSYCHIATRIC: No depression, No anxiety, and No psychosis LEFT FOCUSED PODIATRIC EXAM: Vitals: There were no vitals filed for this visit. General: Patient is awake alert oriented to person place time. No apparent distress. Vascular: DP/PT pulses palpable. CFT < 3 sec 1-5. No edema noted. Temperature gradient is normal warm to cold. Neurologic: Protective sensation intact to light touch. Sensation to sharp/dull is intact. There is no babinskiresponse elicited. Ankle clonus is absent. Dermatological: Skin is normal in appearance with no open lesions or interdigital macerations. Nails 1-5 are normalin length and thickness. Pedal hair is noted. Musculoskeletal: POP noted to the left 1st MPJ. POP noted at the insertion of the TA tendon. Pain with DF and PF of the 1st MPJ. No pain with active or passive ROM of the digits or ankle joint. Muscle strength is 5/5for all muscle groups of the lower extremity. DIAGNOSTIC STUDIES: 3 views of the left foot- No acute fractures or dislocations noted. Decreased joint space noted to the 1st MPJ. Dorsal flag sign noted. PROCEDURE: Written consent was obtained. The area was cleansed with alcohol and 3 cc of 1.0 cc of 0.5 marcaine plain, 1.0 cc of Betamethasone and 1 cc of Dexamethasone was administered to the left 1st MPJ. Hemostasis was achieved and a bandaid was applied. Pt tolerated the procedure well without any complications. ASSESSMENT: Left foot pain Hallux limitus, left TA tendonitis, left PLAN: - Xrays personally reviewed and discussed with the pt. All questions answered. - Signs and symptoms of hallux limitus discussed. - Written consent was obtained and the left 1st MPJ was injected. - Activity to tolerance - OTC pain medication PRN. - Pt to RTC in 3 months for repeat injection. Instructed to call with any problems or questions. Mario Farley DPM documented in this encounter Nursing Notes * Ayleen Wright LPN - 04/29/2024 12:38 PM EST Pt presents for 3 month follow up L foot, receive L 1st MPJ injection 01/20/2024 with relief, wouldlike another injection today. documented in this encounter Miscellaneous Notes * Addendum Note - Mario Farley DPM - 04/30/2024 8:08 AM ESTAddended by: MARIO FARLEY on: 04/30/2024 08:08 AM Modules accepted: Orders * Addendum Note - Ayleen Wright LPN - 04/29/2024 1:09 PM ESTAddended by: AYLEEN WRIGHT on: 04/29/2024 01:09 PM Modules accepted: Orders documented in this encounter Plan of Treatment Upcoming Encounters Date Type Department Care Team (Late st Contact Info) Description 05/07/2024 10:30 AM EST Office Visit Orthopaedics [facility] [address] [place] [phone] Madan Alonso MD [address] [place] [phone] 07/29/2024 10:40 AM EDT Office Visit Podiatry [facility] [address] [place] [phone] Mario Farley DPM [address] [place] [phone] 09/20/2024 11:40 AM EDT Office Visit Family Practice [facility] [address] [place] [phone] Km Aj DO [address] [place] [phone] 04/20/2025 10:40 AM EST Office Visit Dermatology [facility] [place] [address] [place] [address] Valentina Gardiner PA-C [address] [facility] [place] [phone] Health Maintenance Due Date Last Done Comments Cologuard 08/23/2007 Sigmoidoscopy 08/23/2007 Pneumococcal Vaccine: 50+ Years (1 of 1 - PCV) 2012 Zoster Vaccines (1 of 2) 2012 DTap/Tdap Vaccines (2 - Td or Tdap) 07/10/2020 07/10/2010, 08/13/2000 Fecal Occult Blood Test 08/16/2022 08/16/2021 Depression Screening 09/20/2023 09/19/2022 COVID-19 Vaccine ( season) 2023 08/24/2020 Influenza Vaccine (FLU shot) (#1) 2023 04/03/2018, 02/17/2015, 01/05/2014, Additional history exists GFR 09/16/2024 09/17/2023, 05/0 06/2023, 09/09/2022, Additional history exists Mammogram 01/06/2025 01/07/2024, 10/06, 10/23/2021, Additional history exists Pap Smear 05/19/2026 05/19/2023, 12/07, 01/28/2017, Additional history exists Albumin/Creatinine Ratio 09/16/2026 024, 09/09/2022, 07/26/2020, Additional history exists Diabetes Screening 09/16/2026 09/17/2023, 0 09/17/2023, 08/08/2023, Additional history exists Cervical Cancer Screening 05/19/2028 HPV/Co-Test 05/19/2028 05/19/2023 Lipid Panel 12/09/2028 12/10/2023, 09/05, 09/09/2022, Additional history exists Colonoscopy 03/22/2030 03/22/2020, 07/22/2014 Colorectal Cancer Screening 03/22/2030 HPV (Gardasil) Vaccine Aged Out No lo nger eligible based on patient's age to complete this topic Hepatitis B Vaccine Aged Out No longe r eligible based on patient's age to complete this topic MENINGOCOCCAL (MENACTRA/MENVEO) Aged Out No longer eligible based on patient's age to complete this topic documented as of this encounter Medical Devices Not on filedocumented as of this encounter Visit Diagnoses Diagnosis Left foot pain- Primary Pain in limb Hallux limitus of left foot documented in this encounter Care Teams Manager Product Management Relationship Specialty Start Date End Date Km Aj DO [address] [place] [phone] PCP - General Family Medicine 10/26/19 documented as of this encounter
--- OUTSIDE RECORDS SUMMARY | 2024-06-30 23:27 | External Medical Summary ---
Author Name Unknown Address Unknown Organization : Laboratory Report Ordering Provider Test Date Status ANUP CALDERON 05/03/2024 11:18:00 Final Observation Date Value Abnormality Reference (Units ) Status Color of Urine by Auto 05/03/2024 11:18:00 Yellow Light Yellow, Yellow Final Clarity, Urine 05/03/2024 11:18:00 Slightly Cloudy Abnormal Clear Final Glucose [Mass/volume] in Urine by Automated test strip 05/03/2024 11:18:00 Negative Negative (mg/dL) Final Bilirubin.total [Presence] in Urine by Automated test strip 05/03/2024 11:18:00 Negative Negative Final Ketones [Mass/volume] in Urine by Automated test strip 05/03/2024 11:18:00 Negative Negative (mg/dL) Final Specific gravity, Urine 05/03/2024 11:18:00 1.025 1.003-1.030 Final Hemoglobin [Presence] in Urine by Automated test strip 05/03/2024 11:18:00 Small Abnormal Negative Final pH, Urine 05/03/2024 11:18:00 6.5 5.0, 5.5, 6.0, 6.5, 7.0, 7.5 (units) Final Protein [Mass/volume] in Urine by Automated test strip 05/03/2024 11:18:00 100 Abnormal Negative (mg/dL) Final Urobilinogen, Urine 05/03/2024 11:18:00 0.2 0.2, 1.0 (mg/dL) Final Nitrite [Presence] in Urine by Automated test strip 05/03/2024 11:18:00 Negative Negative Final Leukocyte esterase [Presence] in Urine by Automated test strip 05/03/2024 11:18:00 Small Abnormal Negative Final Performing Location
--- OUTSIDE RECORDS SUMMARY | 2024-06-30 23:27 | External Medical Summary | Summary of Care ---
Author Name Unknown Organization [facility] Address [address] [place] [address] Phone [phone] Care Team Providers Care White Shoe Ragger Name Role Phone Km Aj DO Primary Care Provider Reason for Visit * Reason Comments Acute Encounter Details Date Type Department Care Team (Late st Contact Info) Description 05/03/2024 11:20 AM EST Office Visit Family Medicine [address] [phone] Teri Christian CRNP [address] [place] [address] [place] [phone] Viral respiratory illness*; Urinary frequency Allergies Active Allergy Reactions Criticality Noted Date Comments Pollen Other (Please comment) 03/06/2015 Congestion, sinus pressure Ragweed Other (Please comment) 03/06/2015 Congestion, sinus pressure documented as of this encounter (statuses as of 05/03/2024) Medications LOYD MULTIVITAMIN FOR WOMEN PO TABS one tablet daily Active VITAMIN D 400 UNITS PO TABS one tablet daily Active Cyanocobalamin (VITAMIN B12) 100 MCG TABS Take 1 Tablet by mouth in the morning. Active Whigham-3-6-9 CAPS Take 1 Cap by mouth every night at bedtime. Active Vitamin A 2400 MCG (8000 UT) CAPS Take 1 Cap by mouth daily. Active Potassium Chloride Karley ER 20 MEQ Oral Tablet Extended Release Take 2 Tablets by mouth in the morning. Pt takes 40 mEq in am.. 03/24/202 1 Active Potassium Citrate ER 10 MEQ [...] before breakfast. 90 Tablet 1 4 Active Fluticasone Propionate 50 MCG/ACT Nasal Suspension (Flonase)Indicati ons:Acute sinusitis USE 2 SPRAYS IN EACH NOSTRIL DAILY 48 g 1 4 Active Atorvastatin Calcium 40 MG Oral Tablet (Lipitor)Indicati ons:Hyperlipidemi a with target LDL less than 160 Take 1 Tablet by mouth in the morning. 90 Tablet 1 4 Active Azithromycin 250 MG Oral Tablet (Zithromax Z-Geovany) Take two tablets by mouth on first day, then 1 tablet daily until gone 6 Tablet 4 05/03/19 25 Discontinu ed(Medicat ion List Clean Up) Sulfamethoxazole- Trimethoprim 800-160 MG Oral Tablet (Bactrim DS)Indications:Ur inary tract infection without hematuria, site unspecified Take 1 Tablet by mouth in the morning and 1 Tablet before bedtime. Do all this for 3 days. Until gone. 6 Tablet 4 05/03/19 25 Discontinu ed(Medicat ion List Clean Up) documented as of this encounter (statuses as of 05/03/2024) Active Problems Problem Noted Date Diagnosed Date [...] as of this encounter (statuses as of 05/03/2024) Resolved Problems Problem Noted Date Diagnosed Date Resolved Date Sepsis due to Escherichia co li with acute organ dysfunction and septic shock 10/26/201901/16 Elevated blood pressure, situational 01/08/2018 10/20/2018 Neoplasm of uncertain behavior of skin 06/22/2014 01/16/2017 History of basal cell carcinoma 06/22/2014 01/16/2017 MALIG HARMONY SKIN LEG 12/21/2004 7 documented as of this encounter (statuses as of 05/03/2024) Immunizations Name Administration Dates Next Due Covid-19 Ad26, Single Dose (Narciso/J&J) 08/24/2020 Seasonal Influenza Vac., MDV , IM, 0.5 mL (Fluzone) 02/17/2015,01/05/2014,02/15/2013, 009 Seasonal Influenza, PF, 6 M & above, IM , (FluLaval or Fluzone) 04/03/2018 TDAP, Age 7 and older, IM (Adacel) [...] No 09/05/2023 Does the household have a [facility] source of income? 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 Not on file Not on file Not on file documented as of this encounter Last Filed Vital Signs Vital Sign Reading Time Taken Comments Blood Pressure 122/72 05/03/2024 11:09 AM EST Pulse 73 05/03/2024 11:09 AM EST Temperature 36.1 C (97 F) 05/03/2024 11:09 AM EST Respiratory Rate 16 05/03/2024 11:09 AM EST Oxygen Saturation 98% 05/03/2024 11:09 AM EST Inhaled Oxygen Concentration - - Weight 76.2 kg (168 lb) 05/03/2024 11:09 AM EST Height - - Body Mass Index 25.54 01/17/2024 9:55 AM EDT documented in this encounter Progress Notes * Teri Christian CRNP - 05/03/2024 11:25 AM EST Images from the original note were not included. History of Present Illness Eneida Olmstead is a 63 year old female that presents for Acute Concerns today for urinary symptoms that started yesterday. Associated with fever, headache, ear pain, body aches, low back pain, decreased appetite, urinary frequency. Has tried Tylenol without much relief. No known sick contact, but was cross country skiing over the weekend. Hx of UTI and concerned symptoms may be UTI as she has had atypical symptoms in the past. Was treated last month for UTI. No urinary burning or hematuria. Patient Active Problem List Diagnosis Other allergic rhinitis FAMILY HX-BREAST MALIG Hearing loss, bilateral History of nonmelanoma skin cancer Hyperlipidemia with target LDL less than 160 History of retinal detachment HTN, goal below 130/80 Pain and swelling of knee, right Current Outpatient Medications Medication Sig Dispense Refill LOYD MULTIVITAMIN FOR WOMEN PO TABS one tablet daily VITAMIN D 400 UNITS PO TABS one tablet daily Cyanocobalamin (VITAMIN B12) 100 MCG TABS Take 1 Tablet by mouth in the morning. Whigham-3-6-9 CAPS Take 1 Cap by mouth every [...] mouth daily before breakfast. 90 Tablet 1 Fluticasone Propionate 50 MCG/ACT Nasal Suspension (Flonase) USE 2 SPRAYS IN EACH NOSTRIL DAILY 48 g 1 Atorvastatin Calcium 40 MG Oral Tablet (Lipitor) Take 1 Tablet by mouth in the morning. 90 Tablet 1 No current facility-administered medications for this visit. 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 (Adult - for ages 18 years and over): No Does your family have trouble paying for medicine? (Household - for ages 0-17 years): Not on file Food Insecurity: No Food Insecurity (09/05/2023) Food Insecurity Do you need food for this week? (Adult - for ages 18 years and over): No Are you able to get enough food for your family? (Household - for ages 0-17 years): Not on file Does your family need food this week? (Household - for ages 0-17 years): Not on file Do you always have enough food for your family? (Household - for ages 0-17 years): Not on file Transportation Needs: No Transportation Needs (09/05/2023) Transportation Needs Do you have trouble getting a ride to medical visits or work? (Adult - for ages 18 years and over):Never True Does your family have a hard time getting a ride to doctors visits? (Household - for ages 0-17 years): Not on file Has lack of transportation kept you from medical appointments, meetings, work, or from getting things needed for daily living? Check all that apply. (Adult - for ages 18 years and over): Not on file Do you (or your family) have trouble finding or paying for a ride (transportation)? (Household - for ages 0-17 years): Not on file Social Connections: Socially Integrated (09/05/2023) Social Connections How often do you feel lonely or isolated from those around you? (Adult - for ages 18 years and over): Never Housing Stability: Low Risk (09/05/2023) Housing Stability Do you currently live in a penitentiary or have no steady place to sleep at night? (Adult - for ages 18 years and over): No Do you think you are at risk of becoming homeless? (Adult - for ages 18 years and over): No Does your family worry about paying for your home or becoming homeless? (Household - for ages 0-17 years): Not on file Are you homeless or worried that you might be in the future? (Adult - for ages 18 years and over): Not on file Are you (or your family) homeless or worried that you might be in the future? (Household - for ages0-17 years): Not on file Physical Exam Vitals: 05/03/24 1109 Temp: 97 F (36.1 C) Pulse: 73 Resp: 16 SpO2: 98% BP: 122/72 General: A&Ox3 and no distress Head: Normocephalic and atraumatic Eye: conjunctiva are pink and non-injected, sclera clear Ears: External ears normal, Canals clear, TM's Normal Nose: no mucosal erythema, no mucosal edema, no purulent discharge Oropharynx: no exudate, no erythema, lips, buccal mucosa, and tongue normal, and mucous membranes are moist Neck: supple, no adenopathy, thyroid normal size, non-tender, without nodularity Heart: regular rate & rhythm, no murmur, no gallops, S-1 normal, and S-2 normal Lungs: normal respiratory rate and rhythm, lungs clear to auscultation Back: no CVA tenderness Skin: warm and dry I have reviewed the following results: BMP results Recent Labs Units 09/17/23 1001 08/08/23 0000 09/09/22 1028 SODIUM - [facility] mmol/L 140 -- 145 POTASSIUM - [facility] mmol/L 3.9 3.6 3.5 CHLORIDE - [facility] mmol/L 100 -- 104 CO2 - [facility] mmol/L 29 -- 27 CREATININE - [facility] mg/dL 0.7 0.67 0.9 BUN - [facility] mg/dL 15 -- 21* Urine dip shows small blood and small leuks. Assessment and Plan Viral respiratory illness - suspect likely flu A / discussed if positive can send Tamiflu - otherwise OTC Tylenol/Ibuprofen as needed for body aches - OTC Mucinex PRN congestion - rest and drink plenty of fluids - INFLUENZA A/B RSV SARS-COV2,PCR; Future - INFLUENZA A/B RSV SARS-COV2,PCR Urinary frequency - will send urine culture and if positive then abx - URINALYSIS, POINT OF CARE - CULTURE, URINE, QUANTITATIVE Wrap-Up Follow Up: Return if symptoms worsen or fail to improve. Time: I spent a total of 20-29 minutes (exact time 20 mins) on the date of service in preparation, delivery, and documentation of the care provided to Eneida Olmstead excluding any time spent in the performance of separately billed services. Cosigned by Eliana Henry MD at 05/03/2024 1:00 PM EST documented in this encounter Nursing Notes * Kavya Meneses LPN - 05/03/2024 11:07 AM EST C/o fever, low back pain, urinary frequency, headache. Achy, symptoms started yesterday. documented in this encounter Plan of Treatment Upcoming Encounters Date Type Department Care Team (Late st Contact Info) Description 05/07/2024 10:30 AM EST Office Visit Orthopaedics [facility] [address] [place] [phone] Madan Alonso MD [address] [place] [phone] 07/29/2024 10:40 AM EDT Office Visit Podiatry [facility] [address] [place] [phone] Janna Maldonado DPM [address] [place] [address] 09/20/2024 11:40 AM EDT Office Visit Family Practice [facility] [address] [place] [address] Km Aj DO [address] [place] [phone] 04/20/2025 10:40 AM EST Office Visit Dermatology [address], [place] [address] [place] [address] Valentina Gardiner PA-C [address] [facility] [place] [address] Scheduled Orders Name Type Priority Associated Diagnoses Orde r Schedule CULTURE, URINE, QUANTITATIVE Lab Routine Urinary frequency Ordered: 05/03/2024 INFLUENZA A/B RSV SARS-COV2,PCR Lab Routine Viral respiratory illness Expected: 05/03/2024 (Approximate), Expires: 05/03/2025 Health Maintenance Due Date Last Done Comments Cologuard 08/23/2007 Sigmoidoscopy 08/23/2007 Pneumococcal Vaccine: 50+ Years (1 of 1 - PCV) 2012 Zoster Vaccines (1 of 2) 2012 DTap/Tdap Vaccines (2 - Td or Tdap) 07/10/2020 07/10/2010, 08/13/2000 Fecal Occult Blood Test 08/16/2022 08/16/2021 Depression Screening 09/20/2023 09/19/2022 COVID-19 Vaccine (2 - season) 2023 08/24/2020 Influenza Vaccine (FLU shot) (#1) 2023 04/03/2018, 02/17/2015, 01/05/2014, Additional history exists GFR 09/16/2024 09/17/2023, 05/0 06/2023, 09/09/2022, Additional history exists Mammogram 01/06/2025 01/07/2024, 10/06, 10/23/2021, Additional history exists Pap Smear 05/19/2026 05/19/2023, 092 12/2019, 01/28/2017, Additional history exists Albumin/Creatinine Ratio 09/16/2026 [...] Not on filedocumented as of this encounter Procedures Procedure Name Priority Date/Time Associated Diagnosis Comments URINALYSIS, POINT OF CARE Routine 05/03/2024 11:18 AM EST Urinary frequency documented in this encounter Results * (ABNORMAL) URINALYSIS, POINT OF CARE (05/03/2024 11:18 AM EST) Color, Urine Yellow Light Yellow, Yellow 05/03/2024 11:21 AM EST [facility] Clarity, Urine Slightly Cloudy(A) Clear 05/03/2024 11:21 AM EST [facility] Glucose, Urine Negative Negative mg/dL 05/03/2024 11:21 AM EST [facility] Bilirubin, Urine Negative Negative 05/03/2024 11:21 AM EST [facility] Ketone, Urine Negative Negative mg/dL 05/03/2024 11:21 AM EST [facility] Specific [place], Urine 1.025 1.003 - 1.030 05/03/2024 11:21 AM EST [facility] Blood, Urine Small(A) Negative 05/03/2024 11:21 AM EST [facility] pH, Urine 6.5 5.0, 5.5, 6.0, 6.5, 7.0, 7.5 units 05/03/2024 11:21 AM EST [facility] Protein, Urine 100(A) Negative mg/dL 05/03/2024 11:21 AM EST [facility] Urobilinogen, Urine 0.2 0.2, 1.0 mg/dL 05/03/2024 11:21 AM EST [facility] Nitrite, Urine Negative Negative 05/03/2024 11:21 AM EST [facility] Esterase, Urine Small(A) Negative 05/03/2024 11:21 AM EST [facility] Urine 05/03/2024 11:1 8 AM EST 05/03/2024 11:21 AM EST us Teri KLEIN LAB POINT OF CA RE TEST DOCKED DEVICE UNSOLICITED RESULTS Final Result [facility] [address] [place] [id number] documented in this encounter Visit Diagnoses Diagnosis Viral respiratory illness- Primary Unspecified viral infection, in conditions classified elsewhere and of unspecified site Urinary frequency documented in this encounter Care Teams White Shoe Ragger Relationship Specialty Start Date End Date Km Aj DO [address] [facility] [place] [address] PCP - General Family Medicine 10/26/19 documented as of this encounter
--- OUTSIDE RECORDS SUMMARY | 2024-06-30 23:27 | External Medical Summary | Summary of Care ---
Author Name Unknown Organization [facility] Address [address] [place] [address] Phone [phone] Care Team Providers Care Collaborative Physician Name Role Phone Km Aj DO Primary Care Provider Reason for Visit * Reason Comments Follow Up L foot Encounter Details Date Type Department Care Team (Late st Contact Info) Description 04/29/2024 12:40 PM EST Office Visit Podiatry [facility] [address] [place] [phone] Mario Farley DPM [address] [place] [address] Left foot pain*; Hallux limitus of left foot Allergies Active Allergy Reactions Criticality Noted Date Comments Pollen Other (Please comment) 03/06/2015 Congestion, sinus pressure Ragweed Other (Please comment) 03/06/2015 Congestion, sinus pressure documented as of this encounter (statuses as of 05/07/2024) Medications LOYD MULTIVITAMIN FOR WOMEN PO TABS one tablet daily Active VITAMIN D 400 UNITS PO TABS one tablet daily Active Cyanocobalamin (VITAMIN B12) 100 MCG TABS Take 1 Tablet by mouth in the morning. Active [place]-3-6-9 CAPS Take 1 Cap by mouth every [...] 25 Discontinu ed(Medicat ion List Clean Up) Hospital, Clinic, or Other Facility Administered Medication Ordered Dose Route Frequency Start Date End Date Status bupivacaine (Sensorcaine) 0.5 % inj 5 mgIndications:Left foot pain,Hallux limitus of left foot 5 mg IJ ONCE 04/30/2024 04/29/2024 Ended dexamethasone sodium phosphate 20 MG/5ML inj 4 mgIndications:Left foot pain,Hallux limitus of left foot 4 mg IJ ONCE 04/30/2024 04/29/2024 Ended betamethasone acet & sod phos (Celestone Soluspan) inj 6 mgIndications:Left foot pain,Hallux limitus of left foot 6 mg IJ ONCE 04/30/2024 04/29/2024 Ended documented as of this encounter (statuses as of 05/07/2024) Active Problems Problem Noted Date Diagnosed Date [...] as of this encounter (statuses as of 05/07/2024) Resolved Problems Problem Noted Date Diagnosed Date Resolved Date Sepsis due to Escherichia co li with acute organ dysfunction and septic shock 10/26/201901/16 Elevated blood pressure, situational 01/08/2018 10/20/2018 Neoplasm of uncertain behavior of skin 06/22/2014 01/16/2017 History of basal cell carcinoma 06/22/2014 01/16/2017 MALIG HARMONY SKIN LEG 12/21/2004 7 documented as of this encounter (statuses as of 05/07/2024) Immunizations Name Administration Dates Next Due Covid-19 [...] 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 Name: Eneida Olmstead : 1960 Date: 04/29/2024 [...] She was seen by Dr. Glynn in [place] with [facility]. She wears sneakers and boots/shoes. 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 [place]-3-6-9 CAPS Take 1 Cap by mouth every [...] Care Team (Late st Contact Info) Description 07/29/2024 10:40 AM EDT Office Visit Podiatry [facility] [address] [place] [phone] Mario Farley DPM [address] [place] [address] 09/20/2024 11:40 AM EDT Office Visit Family Practice [facility] [address] [place] [address] Km Aj DO [address] [place] [phone] 11/05/2024 10:30 AM EDT Office Visit Orthopaedics [facility] [address] [place] [phone] Madan Alonso MD [address] [place] [phone] 04/20/2025 10:40 AM EST Office Visit Dermatology [facility], [place] [address] [place] [address] Valentina Gardiner PA-C [address] [place] [address] Health Maintenance Due Date Last Done Comments [...] of left foot documented in this encounter Administered Medications Inactive Administered Medications - up to 3 most recent administrations Medication Order MAR Action Action Date Dose Rate Site betamethasone acet & sod phos (Celestone Soluspan) inj 6 mg 6 mg, Injection, ONCE, On Fri04/30/24 at 0845, For 1 doseIndications:Left foot pain,Hallux limitus of left foot Given 04/29/2024 2:59 PM EST 6 mg Foot Left bupivacaine (Sensorcaine) 0.5 % inj 5 mg 5 mg, Injection, ONCE, On Fri04/30/24 at 0845, For 1 doseIndications:Left foot pain,Hallux limitus of left foot Given 04/29/2024 3:00 PM EST 5 mg Foot Left dexamethasone sodium phosphate 20 MG/5ML inj 4 mg 4 mg, Injection, ONCE, On Fri04/30/24 at 0845, For 1 dose, Protect from LightIndications:Left foot pain,Hallux limitus of left foot Given 04/29/2024 3:00 PM EST 4 mg Foot Left documented in this encounter Care Teams Collaborative Physician Relationship Specialty Start Date End Date Km Aj DO [address] [facility] [place] [address] PCP - General Family Medicine 10/26/19 documented as of this encounter
--- OUTSIDE RECORDS SUMMARY | 2024-06-30 23:27 | External Medical Summary | Summary of Care ---
Author Name Unknown Organization [facility] Address [address] [place] [address] Phone [phone] Care Team Providers Care Receiving Worker Name Role Phone Km Aj DO Primary Care Provider Reason for Visit * Reason Comments Follow Up R knee Knee Pain R knee * Precert (Within 10 days (routine)) - Authorized Specialty Diagnoses / Procedures Referred By Contac t Referred To Contact Diagnoses Unilateral primary osteoarthritis, right knee Procedures MT INJ, DUROLANE 1 MG Madan Alonso MD [address] [place] [address] Phone: tel: fax: Madan Alonso MD [address] [place] [address] Phone: tel: fax: Referral ID Status Reason Start Date Expiration Date V isits Requested Visits Authorized [id number] Authorized Precert 08/04/2023 04/06/2099 [id number] Encounter Details Date Type Department Care Team (Latest Contact Info) Description 05/07/2024 10:30 AM EST Office Visit Orthopaedics [facility] [address] [place] [phone] Madan Alonso MD [address] [place] [address] Primary osteoarthritis of right knee* Allergies Active Allergy Reactions Criticality Noted Date [...] Tablet by mouth in the morning. Active [place]-3-6-9 CAPS Take 1 Cap by mouth every [...] the morning. 90 Tablet 1 4 Active Cephalexin 500 MG Oral CapsuleIndication s:Acute cystitis without hematuria Take 1 Capsule by mouth in the morning and 1 Capsule before bedtime. Do all this for 7 days. 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 It has helped her substantially. She typically gets about 6 months benefit. Presents today to have her injection. most recent 1 was performed on 11/04/23 PROCEDURE NOTE: KNEE INJECTION - ULTRASOUND Laterality: Right Time out: Prior to injection, a time out was called to confirm the administration of appropriate medicine, patient name, procedure and confirm to the best of our ability and knowledge the presence of any necessary risks and benefits. Patient verbalized understanding. Ultrasound utilized to guide injection. During the procedure, the needle was visualized in plane and was advanced with continuous ultrasound guidance to the appropriate anatomical landmark as described in the procedure. Ultrasound required due to need to visualize specific joint recess and aspirate/inject at this site. Sterile technique applied using gloves, chlorhexadine, and alcohol swabs. Ethyl chloride spray for local anesthetic. Knee injected at superior-lateral recess 1.5 inch, 22 gauge needle. Injected with Durolane. Patient tolerated procedure with no significant bleeding or adverse reaction. Patient instructed to call or return to clinic for fever, warmth, unusual redness at injection sitefor potential infection. Patient also advised regarding post-procedural pain. Recommended about 4-6 weeks before she desires to have them repeated to contact our office and ask us to perform prior authorization and schedule her visit 4-6 weeks after that request to give us time to process the request Madan Alonso MD Sports Medicine Primary Care Orthopaedics [facility] [address] [place] [address] documented in this encounter Nursing Notes * Opal Boyer LPN - 05/07/2024 10:20 AM EST F/u R knee Durolane injection October 2023: 6 mos pain relief per pt Pt is unaccompanied Trang Mccall LPN documented in this encounter Plan of Treatment Upcoming Encounters Date Type Department Care Team (Late st Contact Info) Description 07/29/2024 10:40 AM EDT Office Visit Podiatry [facility] [address] [place] [address] Janna Maldonado DPM [address] [place] [address] 09/20/2024 11:40 AM EDT Office Visit Family Practice [facility] [address] [place] [address] Km Aj DO [address] [place] [address] 11/05/2024 10:30 AM EDT Office Visit Orthopaedics [facility] [address] [place] [address] Madan Alonso MD [address] [place] [phone] 04/20/2025 10:40 AM EST Office Visit Dermatology [facility] [place] [address] [place] [address] Valentina Gardiner PA-C [address] [place] [address] Health Maintenance Due Date Last Done Comments Cologuard 08/23/2007 Sigmoidoscopy 08/23/2007 Pneumococcal Vaccine: 50+ Years (1 of 1 - PCV) 2012 Zoster Vaccines (1 of 2) 2012 DTap/Tdap Vaccines (2 - Td or Tdap) 07/10/2020 07/10/2010, 08/13/2000 Fecal Occult Blood Test 08/16/2022 08/16/2021 Depression Screening 09/20/2023 09/19/2022 COVID-19 Vaccine ( - season) 2023 08/24/2020 Influenza Vaccine (FLU [...] as of this encounter Visit Diagnoses Diagnosis Primary osteoarthritis of right knee- Primary Primary localized osteoarthrosis, lower leg documented in this encounter Administered Medications Inactive Administered Medications - up to 3 most recent administrations Medication Order MAR Action Action Date Dose Rate Site Sodium Hyaluronate (Durolane) inj 60 mg 60 mg, Intra-Articular, ONCE, On Fri05/07/24 at 1115, For 1 doseIndications:Primary osteoarthritis of right knee Given 05/07/2024 11:43 AM EST 60 mg Knee Right documented in this encounter Care Teams Receiving Worker Relationship Specialty Start Date End Date Km Aj DO [address] [place] [address] PCP - General Family Medicine 10/26/19 documented as of this encounter
--- OUTSIDE RECORDS SUMMARY | 2024-06-30 23:27 | External Medical Summary | Summary of Care ---
Author Name Unknown Organization [facility] Address [address] [place] [address] Phone [phone] Care Team Providers Care Fire Manager Name Role Phone Km Aj DO Primary Care Provider Reason for Visit * Reason Comments Follow Up R knee Knee Pain R knee * Precert (Within 10 days (routine)) - Authorized Specialty Diagnoses / Procedures Referred By Contac t Referred To Contact Diagnoses Unilateral primary osteoarthritis, right knee Procedures MD INJ, DUROLANE 1 MG Madan Alonso MD [address] [place] [address] Phone: tel: fax: Madan Alonso MD [address] [place] [address] Phone: tel: fax: Referral ID Status Reason Start Date Expiration Date V isits Requested Visits Authorized [id number] Authorized Precert 08/04/2023 04/06/2099 [id number] Encounter Details Date Type Department Care Team (Latest Contact Info) Description 05/07/2024 10:30 AM EST Office Visit Orthopaedics [facility] [address] [place] [phone] [...] Tablet by mouth in the morning. 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 Not on file Not [...] Alonso MD Sports Medicine Primary Care Orthopaedics [facility] [address] [place] [address] documented in this encounter Nursing Notes * Opal Boyer LPN - 05/07/2024 10:20 AM EST F/u R knee Durolane injection October 2023: 6 mos pain relief per pt Pt is unaccompanied Trang Mccall LPN documented in this encounter Plan of Treatment Upcoming Encounters Date Type Department Care Team (Late st Contact Info) Description 07/29/2024 10:40 AM EDT Office Visit Podiatry [facility] [address] [place] [address] Janna Maldonado DPM [address] [place] [address] 09/20/2024 11:40 AM EDT Office Visit Family Practice [facility] [address] [place] [address] Km Aj DO [address] [place] [address] 11/05/2024 10:30 AM EDT Office Visit Orthopaedics [facility] [address] [place] [address] Madan Alonso MD [address] [place] [phone] 04/20/2025 10:40 AM EST Office Visit Dermatology [facility], [place] [address] [place] [address] Valentina Gardiner PA-C [address] [place] [address] Health Maintenance Due Date Last Done Comments [...] Right documented in this encounter Care Teams Fire Manager Relationship Specialty Start Date End Date Km Aj DO [address] [place] [address] PCP - General Family Medicine 10/26/19 documented as of this encounter
--- OUTSIDE RECORDS SUMMARY | 2024-06-30 23:27 | External Medical Summary | Summary of Care ---
Author Name Unknown Organization [facility] Address [address] [place] [address] Phone [phone] Care Team Providers Care Product Test Engineer Name Role Phone Km Aj DO Primary Care Provider Reason for Visit * Reason Comments Acute Encounter Details Date Type Department Care Team (Late st Contact Info) Description 05/03/2024 11:20 AM EST Office Visit Family Medicine [address] [phone] Teri Christian CRNP [address] [place] [address] [place] [id number] Viral respiratory illness*; Urinary frequency Allergies Active Allergy Reactions Criticality Noted Date Comments Pollen Other (Please comment) 03/06/2015 Congestion, sinus pressure Ragweed Other (Please comment) 03/06/2015 Congestion, sinus pressure documented as of this encounter (statuses as of 05/10/2024) Medications LOYD MULTIVITAMIN FOR WOMEN PO TABS one tablet daily Active VITAMIN D 400 UNITS PO TABS one tablet daily Active Cyanocobalamin (VITAMIN B12) 100 MCG TABS Take 1 Tablet by mouth in the morning. Active [place]-3-6-9 CAPS Take 1 Cap by mouth every [...] as of this encounter (statuses as of 05/10/2024) Active Problems Problem Noted Date Diagnosed Date [...] as of this encounter (statuses as of 05/10/2024) Resolved Problems Problem Noted Date Diagnosed Date Resolved Date Sepsis due to Escherichia co li with acute organ dysfunction and septic shock 10/26/201901/16 Elevated blood pressure, situational 01/08/2018 10/20/2018 Neoplasm of uncertain behavior of skin 06/22/2014 01/16/2017 History of basal cell carcinoma 06/22/2014 01/16/2017 MALIG HARMONY SKIN LEG 12/21/2004 7 documented as of this encounter (statuses as of 05/10/2024) Immunizations Name Administration Dates Next Due Covid-19 [...] No 09/05/2023 Does the household have a tuba city regional health care corporationlar source of income? 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 Comment: [employer] Tobacco [...] Stability Do you currently live in a fci or have no steady place to sleep [...] 07/29/2024 10:40 AM EDT Office Visit Podiatry [facility] [address] [place] [phone] Janna Maldonado DPM [address] [place] [address] 09/20/2024 11:40 AM EDT Office Visit Family Practice [facility] [address] [place] [address] Km Aj DO [address] [place] [address] 11/05/2024 10:30 AM EDT Office Visit Orthopaedics [facility] [address] [place] [phone] Madan Alonso MD [address] [place] [phone] 04/20/2025 10:40 AM EST Office Visit Dermatology [facility] [place] [address] [place] [address] Valentina Gardiner PA-C [address] [facility] [place] [address] Health Maintenance Due Date Last Done Comments [...] 01/05/2014, Additional history exists GFR 09/16/2024 09/17/2023, 050 06/2023, 09/09/2022, Additional history exists Mammogram 01/06/2025 [...] Procedure Name Priority Date/Time Associated Diagnosis Comments INFLUENZA A/B RSV SARS-COV2,PCR Routine 05/03/2024 11:40 AM EST Viral respiratory illness CULTURE, URINE, QUANTITATIVE Routine 05/03/2024 11:22 AM EST Urinary frequency URINALYSIS, POINT OF CARE Routine 05/03/2024 11:18 AM EST Urinary frequency documented in this encounter Results * INFLUENZA A/B RSV SARS-COV2,PCR (05/03/2024 11:40 AM EST) [facility] SARS-CoV-2 (COVID-19) Result Negative Negative 05/04/2024 12:58 PM EST [facility] Comment: No SARS-CoV2 Coronavirus RNA detected by PCR (amplified probe). This automated test was developed and its performance characteristics determined by [facility]. It has not been cleared or approved by the U.S. Food and Drug Administration (FDA). FDA does not require this test to go thru premarket FDA review. This test is used for clinical purposes. It should not be regarded as investigational or for research. This laboratory is certified under the Clinical Laboratory Improvement Amendments (CLIA) as qualified to perform high complexity clinical laboratory testing. This test is a nucleic acid amplification test (NAAT), a reverse transcriptase polymerase chain reaction (RT-PCR) test, or a Centers for Disease Control- acceptable equivalent. The test is performed in a high complexity Clinical Laboratory Improvement Amendments-(CLIA) certified laboratory. The test is acceptable for SARS-CoV-2 diagnosis, surveillance, and travel within the [place] and to most countries. Please check with local testing authorities about requirements before travel. The validation of bronchial specimens, tracheal aspirates, and sputum for this assay was developed and performance characteristics determined by [facility]. The validation of alternate specimen types has not been cleared or approved by the U.S. Food and Drug Administration (FDA). It has been determined that such clearance or approval is not necessary. Influenza A PCR Result Negative Negative 05/04/2024 12:58 PM EST [facility] Comment:No Influenza A RNA d etected by PCR (amplified probe) Influenza B PCR Result Negative Negative 05/04/2024 12:58 PM EST [facility] Comment:No Influenza B RNA d etected by PCR (amplified probe) RSV PCR Result Negative Negative 05/04/2024 12:58 PM EST [facility] Comment:No Respiratory Syncy tial Virus RNA detected by PCR (amplified probe) Upper Respiratory Mid-turbinate nasal swab / Unknown Non-blood Collection / Unknown 05/03/2024 11:40 AM EST 05/03/2024 1:47 PM EST Teri SANFORDNP LAB MICRO - GENERAL ORD ERABLES Final Result [facility] [address] [place] [address] * (ABNORMAL) CULTURE, URINE, QUANTITATIVE (05/03/2024 11:22 AM EST) Culture Growth >100,000 colonies/mL Klebsiella pneumoniae(A) MICROBROTH DILUTIONS 05/06/2024 8:56 AM EST [facility] Urine Urine specimen / Unknown Non-blood Collection / Unknown 05/03/2024 11:22 AM EST 05/03/2024 1:48 PM EST Narrative Organism Antibiotic Method Susceptibility Klebsiella pneumoniae Ampicillin/Sulbactam MICROBROTH DILUTIONS 4: Susceptible Klebsiella pneumoniae Cefazolin MICROBROTH DILUTIONS <=4: Susceptible Klebsiella pneumoniae Cefepime MICROBROTH DILUTIONS <=1: Susceptible Klebsiella pneumoniae Ceftriaxone MICROBROTH DILUTIONS <=1: Susceptible Klebsiella pneumoniae Ciprofloxacin MICROBROTH DILUTIONS <=0.25: Susceptible Comment:Due to maryam us side effects, the FDA has advised against using Ciprofloxacin to treat uncomplicated UTIs and respiratory tract infections unless there are no alternative treatment options. Klebsiella pneumoniae Gentamicin MICROBROTH DILUTIONS <=1: Susceptible Klebsiella pneumoniae Nitrofurantoin MICROBROTH DILUTIONS <=16: Susceptible Klebsiella pneumoniae Piperacillin Tazobactam MICROBROTH DILUTIONS <=4: Susceptible Klebsiella pneumoniae Trimeth/Sulfamethoxazole MICROBROTH DILUTIONS <=20: Susceptible us Teri Christian SKIN CARE TECHNICIAN LAB MICRO - GENERAL ORD ERABLES Final Result [facility] [address] [place] [address] * (ABNORMAL) URINALYSIS, POINT OF CARE (05/03/2024 11:18 AM EST) Color, Urine Yellow Light Yellow, Yellow 05/03/2024 11:21 AM EST [facility] [place] [facility] Clarity, Urine Slightly Cloudy(A) Clear 05/03/2024 11:21 AM EST [facility] [place] [facility] Glucose, Urine Negative Negative mg/dL 05/03/2024 11:21 AM EST [facility] Bilirubin, Urine Negative Negative 05/03/2024 11:21 AM EST [facility] [place] [facility] Ketone, Urine Negative Negative mg/dL 05/03/2024 11:21 AM EST [facility] [place] [facility] Specific [place], Urine 1.025 1.003 - 1.030 05/03/2024 11:21 AM EST [facility] [place] [facility] Blood, Urine Small(A) Negative 05/03/2024 11:21 AM EST [facility] [place] [facility] pH, Urine 6.5 5.0, 5.5, 6.0, 6.5, 7.0, 7.5 units 05/03/2024 11:21 AM EST [facility] [place] [facility] Protein, Urine 100(A) Negative mg/dL 05/03/2024 11:21 AM EST [facility] [place] [facility] Urobilinogen, Urine 0.2 0.2, 1.0 mg/dL 05/03/2024 11:21 AM EST [facility] [place] [facility] Nitrite, Urine Negative Negative 05/03/2024 11:21 AM EST [facility] [place] [facility] Esterase, Urine Small(A) Negative 05/03/2024 11:21 AM EST [facility] [place] [facility] Urine 05/03/2024 11:1 8 AM EST 05/03/2024 11:21 AM EST us Teri KLEIN LAB POINT OF CA RE TEST DOCKED DEVICE UNSOLICITED RESULTS Final Result [facility] [place] [address] [place] [address] documented in this encounter Visit Diagnoses Diagnosis Viral respiratory illness- Primary Unspecified viral infection, in conditions classified elsewhere and of unspecified site Urinary frequency documented in this encounter Care Teams Product Test Engineer Relationship Specialty Start Date End Date Km Aj DO [address] [place] [address] PCP - General Family Medicine 10/26/19 documented as of this encounter
--- OUTSIDE RECORDS SUMMARY | 2024-06-30 23:27 | External Medical Summary | Summary of Care ---
Author Name Unknown Organization [facility] Address [address] [place] [address] Phone [phone] Care Team Providers Care Peoplesoft Hcm Developer Name Role Phone Km Aj DO Primary Care Provider Reason for Visit * Reason Comments Follow Up L foot Encounter Details Date Type Department Care Team (Late st Contact Info) Description 04/29/2024 12:40 PM EST Office Visit Podiatry [facility] [address] [place] [phone] Janna Maldonado DPM [address] [place] [address] Left foot pain*; Hallux limitus of left foot Allergies Active Allergy Reactions Criticality Noted Date Comments Pollen Other (Please comment) 03/06/2015 Congestion, sinus pressure Ragweed Other (Please comment) 03/06/2015 Congestion, sinus pressure documented as of this encounter (statuses as of 04/29/2024) Medications LOYD MULTIVITAMIN FOR WOMEN PO TABS one tablet daily Active VITAMIN D 400 UNITS PO TABS one tablet daily Active Cyanocobalamin (VITAMIN B12) 100 MCG TABS Take 1 Tablet by mouth in the morning. Active [place]-3-6-9 CAPS Take 1 Cap by mouth every [...] the morning. 90 Tablet 1 4 Active documented as of this encounter (statuses as of 04/29/2024) Active Problems Problem Noted Date Diagnosed Date [...] as of this encounter (statuses as of 04/29/2024) Resolved Problems Problem Noted Date Diagnosed Date Resolved Date Sepsis due to Escherichia co li with acute organ dysfunction and septic shock 10/26/201901/16 Elevated blood pressure, situational 01/08/2018 10/20/2018 Neoplasm of uncertain behavior of skin 06/22/2014 01/16/2017 History of basal cell carcinoma 06/22/2014 01/16/2017 MALIG HARMONY SKIN LEG 12/21/2004 7 documented as of this encounter (statuses as of 04/29/2024) Immunizations Name Administration Dates Next Due Covid-19 [...] 09/05/2023 Does the household have a re lar source of income? 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 Glynn in [place] with [facility]. She wears sneakers and boots/shoes. 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 [place]-3-6-9 CAPS Take 1 Cap by mouth every night at bedtime. Vitamin A 2400 MCG (8000 UT) CAPS Take 1 Cap by mouth daily. Potassium Ch[place] Karely ER 20 MEQ Oral Tablet Extended Release [...] to call with any problems or questions. Janna Maldonado DPM documented in this encounter Nursing Notes * Ayleen Wright LPN - 04/29/2024 12:38 PM EST Pt presents for 3 month follow up L foot, receive L 1st MPJ injection 01/20/2024 with relief, wouldlike another injection today. documented in this encounter Miscellaneous Notes * Addendum Note - Ayleen Wright LPN - 04/29/2024 1:09 PM ESTAddended by: AYLEEN WRIGHT on: 04/29/2024 01:09 PM Modules accepted: Orders documented in this encounter Plan of Treatment Upcoming Encounters Date Type Department Care Team (Late st Contact Info) Description 05/07/2024 10:30 AM EST Office Visit Orthopaedics [facility] [address] [place] [phone] Madan Alonso MD [address] [place] [phone] 07/29/2024 10:40 AM EDT Office Visit Podiatry [facility] [address] [place] [phone] Janna Maldonado DPM [address] [place] [address] 09/20/2024 11:40 AM EDT Office Visit Family Practice [facility] [address] [place] [address] Km Aj DO [address] [place] [address] 04/20/2025 10:40 AM EST Office Visit Dermatology [facility] [place] [address] [place] [address] Valentina Gardiner PA-C [address] [place] [address] Health Maintenance Due Date Last Done Comments [...] foot documented in this encounter Care Teams Peoplesoft Hcm Developer Relationship Specialty Start Date End Date Km Aj DO [address] [place] [address] PCP - General Family Medicine 10/26/19 documented as of this encounter
--- OUTSIDE RECORDS SUMMARY | 2024-06-30 23:27 | External Medical Summary ---
Author Name Unknown Address Unknown Organization K01:LABORATORY [facility] [place] - [address] [place] [address] Laboratory Report Ordering Provider Test Date Status ANUP CALDERON 05/03/2024 11:22:11 Final Observation Date Value Abnormality Reference (Units ) Status Bacteria identified in Specimen by Culture 05/03/2024 11:22:11 [id number]^KLEBSIELL A PNEUMONIAE Abnormal Final >100,000 colonies/mL Klebsie lla pneumoniae Performing Location [facility] - [address] [place] [address] Ordering Provider Test Date Status ANUP CALDERON 05/03/2024 11:22:11 Final Observation Date Value Abnormality Reference (Units ) Status Ampicillin + Sulbactam 05/03/2024 11:22:11 4 Susceptible Final Cefazolin 05/03/2024 11:22:11 <=4 Susceptible Final Cefepime susceptibility 05/03/2024 11:22:11 <=1 Susceptible Final Ceftriaxone suceptibility 05/03/2024 11:22:11 <=1 Susceptible Final Ciprofloxacin 05/03/2024 11:22:11 <=0.25 Susceptible Final Due to serious side effects, the FDA has advised against using Ciprofloxacin to treat uncomplicated UTIs and respiratory tract infections unless there are no alternative treatment options. Gentamicin susceptibility 05/03/2024 11:22:11 <=1 Susc eptible Final Nitrofurantoin susceptibility 05/03/2024 11:22:11 <=16 Susceptible Final Piperacillin + Tazobactamsusceptibility 05/03/2024 11:22:11 <=4 Susceptible Final TMP-SMZ susceptibility 05/03/2024 11:22:11 <=20 Suscept ible Final Test: Culture, Urine, Quanti tative
Specimen Source: Urine, Catheter
Specimen Type: Urine
Specimen Date: 05/03/2024 1122
Result Date: 05/06/2024 0856
Result Status: Final result
Abnormal: Yes
Resulting Lab: [facility]
[address]
[place] [address]

CULTURE

>100,000 colonies/mL Klebsiella pneumoniae (Abnormal)

SUSCEPTIBILITY

Klebsiella
pneumoniae
METHOD MICROBROTH
DILUTIONS

AMPICILLIN/SULBACTAM 4 Susceptible
CEFAZOLIN <=4 Susceptible
CEFEPIME <=1 Susceptible
CEFTRIAXONE <=1 Susceptible
CIPROFLOXACIN <=0.25 Susceptible
[1]
GENTAMICIN <=1 Susceptible
NITROFURANTOIN <=16 Susceptible
PIPERACILLIN TAZOBACTAM <=4 Susceptible
TRIMETH/SULFAMETHOXAZOLE <=20 Susceptible

[1] Due to serious side effects, the FDA has advised against using
Ciprofloxacin to treat uncomplicated UTIs and respiratory tract infections
unless there are no alternative treatment options.

null Performing Location [facility] - [address] [place] [address]
--- OUTSIDE RECORDS SUMMARY | 2024-06-30 23:27 | External Medical Summary | Summary of Care ---
Author Name Unknown Organization [facility] Address [address] [place] [address] Phone [phone] Care Team Providers Care Carpet Installer Helper Name Role Phone Km Aj DO Primary Care Provider Reason for Visit * Reason Comments Follow Up L foot Encounter Details Date Type Department Care Team (Late st Contact Info) Description 04/29/2024 12:40 PM EST Office Visit Podiatry [facility] [address] [place] [phone] Janna Maldonado DPM [address] [place] [address] Left foot pain*; Hallux limitus of left [...] Tablet by mouth in the morning. 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 Glynn in [place] with [facility]. She wears sneakers and boots/shoes. 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 [place]-3-6-9 CAPS Take 1 Cap by mouth every [...] 05/07/2024 10:30 AM EST Office Visit Orthopaedics [facility] [address] [place] [phone] Madan Alonso MD [address] [place] [phone] 07/29/2024 10:40 AM EDT Office Visit Podiatry [facility] [address] [place] [phone] Janna Maldonado DPM [address] [place] [address] 09/20/2024 11:40 AM EDT Office Visit Family Practice [facility] [address] [place] [address] Km Aj DO [address] [place] [address] 04/20/2025 10:40 AM EST Office Visit Dermatology [facility] [place] [address] [place] [address] Valentina Gardiner PA-C [address] [place] [address] Health Maintenance Due Date Last Done Comments [...] foot documented in this encounter Care Teams Carpet Installer Helper Relationship Specialty Start Date End Date Km Aj DO [address] [place] [address] PCP - General Family Medicine 10/26/19 documented as of this encounter
--- OUTSIDE RECORDS SUMMARY | 2024-06-30 23:27 | External Medical Summary | Summary of Care ---
Author Name Unknown Organization [facility] Address [address] [place] [address] Phone [phone] Care Team Providers Care Bottling Room Worker Name Role Phone Km Aj DO Primary Care Provider Reason for Visit * Reason Onset Date Comments Test Results 05/06/2024 Encounter Details Date Type Department Care Team (Late st Contact Info) Description 05/06/2024 Telephone Family Medicine [address] [phone] Teri Christian [address] [place] [address] Test Results Allergies Active Allergy Reactions Criticality Noted Date Comments Pollen Other (Please comment) 03/06/2015 Congestion, sinus pressure Ragweed Other (Please comment) 03/06/2015 Congestion, sinus pressure documented as of this encounter (statuses as of 05/06/2024) Medications LOYD MULTIVITAMIN FOR WOMEN PO TABS one tablet daily Active VITAMIN D 400 UNITS PO TABS one tablet daily Active Cyanocobalamin (VITAMIN B12) 100 MCG TABS Take 1 Tablet by mouth in the morning. Active [place]-3-6-9 CAPS Take 1 Cap by mouth every [...] days. 14 Capsule 5 05/13/19 25 Active documented as of this encounter (statuses as of 05/06/2024) Active Problems Problem Noted Date Diagnosed Date [...] as of this encounter (statuses as of 05/06/2024) Resolved Problems Problem Noted Date Diagnosed Date Resolved Date Sepsis due to Escherichia co li with acute organ dysfunction and septic shock 10/26/201901/16 Elevated blood pressure, situational 01/08/2018 10/20/2018 Neoplasm of uncertain behavior of skin 06/22/2014 01/16/2017 History of basal cell carcinoma 06/22/2014 01/16/2017 MALIG HARMONY SKIN LEG 12/21/2004 7 documented as of this encounter (statuses as of 05/06/2024) Immunizations Name Administration Dates Next Due Covid-19 [...] Former Cigarettes 2 19 1 978 - 1997 Smokeless Tobacco: Never Comments:"quit years ago" Alcohol [...] No 09/05/2023 Does the household have a [facility] source of income? 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 I sent Keflex to [facility] in [place]. Thanks! documented in this encounter Plan of Treatment Upcoming Encounters Date Type Department Care Team (Late st Contact Info) Description 05/07/2024 10:30 AM EST Office Visit Orthopaedics [facility] [address] [place] [phone] Madan Alonso MD [address] [place] [phone] 07/29/2024 10:40 AM EDT Office Visit Podiatry [facility] [address] [place] [phone] Janna Maldonado DPM [address] [place] [address] 09/20/2024 11:40 AM EDT Office Visit Family Practice [facility] [address] [place] [address] Km Aj DO [address] [place] [address] 04/20/2025 10:40 AM EST Office Visit Dermatology [facility] [address] [place] [address] Valentina Gardiner PA-C [address] [place] [address] Health Maintenance Due Date Last Done Comments Cologuard 08/23/2007 Sigmoidoscopy 08/23/2007 Pneumococcal Vaccine: 50+ Years (1 of 1 - PCV) 2012 Zoster Vaccines (1 of 2) 2012 DTap/Tdap Vaccines (2 - Td or Tdap) 07/10/2020 07/10/2010, 08/13/2000 Fecal Occult Blood Test 08/16/2022 08/16/2021 Depression Screening 09/20/2023 09/19/2022 COVID-19 Vaccine (2 - 2023- season) 2023 08/24/2020 Influenza Vaccine (FLU shot) [...] as of this encounter Visit Diagnoses Diagnosis Acute cystitis without hematuria- Primary Acute cystitis documented in this encounter Care Teams Bottling Room Worker Relationship Specialty Start Date End Date Km Aj DO [address] [place] [address] PCP - General Family Medicine 10/26/19 documented as of this encounter
--- OUTSIDE RECORDS SUMMARY | 2024-06-30 23:27 | External Medical Summary | Summary of Care ---
Author Name Unknown Organization [facility] Address [address] [place] [address] Phone [phone] Care Team Providers Care Salesforce Trainer Name Role Phone Km Aj DO Primary Care Provider Reason for Visit * Reason Onset Date Comments Test Results 05/06/2024 Encounter Details Date Type Department Care Team (Late st Contact Info) Description 05/06/2024 Telephone Family Medicine [address] [phone] Teri Christian [address] [place] [address] Test Results Allergies Active Allergy Reactions [...] Tablet by mouth in the morning. Active [place]-3-6-9 CAPS Take 1 Cap by mouth every [...] No 09/05/2023 Does the household have a [facility] source [facility] income? 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 * Telephone Encounter - Teri Christian CRNP - 05/06/2024 12:33 PM EST Can we call patient and notify her that urine culture came back positive. I sent Keflex to [facility] in [place]. Thanks! documented in this encounter Plan of Treatment Upcoming Encounters Date Type Department Care Team (Late st Contact Info) Description 07/29/2024 10:40 AM EDT Office Visit Podiatry [facility] [address] [place] [phone] Janna Maldonado DPM [address] [place] [address] 09/20/2024 11:40 AM EDT Office Visit Family Practice [facility] [address] [place] [address] Km Aj DO [address] [place] [address] 11/05/2024 10:30 AM EDT Office Visit Orthopaedics [facility] [address] [place] [phone] Madan Alonso MD [address] [place] [phone] 04/20/2025 10:40 AM EST Office Visit Dermatology [facility] [place] [address] [facility] [place] [address] Valentina Gardiner PA-C [address] [facility] [place] [address] Health Maintenance Due Date Last Done Comments [...] cystitis documented in this encounter Care Teams Salesforce Trainer Relationship Specialty Start Date End Date Km Aj DO [address] [place] [address] PCP - General Family Medicine 10/26/19 documented as of this encounter
--- OUTSIDE RECORDS SUMMARY | 2024-06-30 23:27 | External Medical Summary ---
Author Name Unknown Address Unknown Organization K01:[facility] - [address] [facility] [address] [address] Laboratory Report Ordering Provider Test Date Status ANUP CALDERON 05/03/2024 11:40:37 Final Observation Date Value Abnormality Reference (Units ) Status SARS Coronavirus 2 05/03/2024 11:40:37 Negative N egative Final No SARS-CoV2 Coronavirus RNA detected by PCR (amplified probe).
This automated test was developed and its performance characteristics determined by [employer]. It has not been cleared or approved [...] (RT-PCR) test, or a Centers for Disease Control-acceptable equivalent. The test is performed in a high complexity Clinical Laboratory Improvement Amendments-(CLIA) certified laboratory. The test is acceptable for SARS-CoV-2 diagnosis, surveillance, and travel within the [place] and to most countries. Please check with local testing authorities about requirements before travel.

The validation of bronchial specimens, tracheal aspirates, and sputum for this assay was developed and performance characteristics determined by [employer]. The validation of alternate specimen types has not been cleared or approved by the U.S. Food and Drug Administration (FDA). It has been determined that such clearance or approval is not necessary. Influenza virus A RNA [Prese nce] in Specimen by HI with probe detection 05/03/2024 11:40:37 Negative Negative Final No Influenza A RNA detected by PCR (amplified probe) Influenza virus B RNA [Prese nce] in Specimen by HI with probe detection 05/03/2024 11:40:37 Negative Negative Final No Influenza B RNA detected by PCR (amplified probe) Respiratory syncytial virus RNA [Identifier] in Specimen by HI with probe detection 05/03/2024 11:40:37 Negative Negative Final No Respiratory Syncytial Vir us RNA detected by PCR (amplified probe) Performing Location LAB[facility]ATORY [place] [address] [facility] [address]
--- OUTSIDE RECORDS SUMMARY | 2024-06-30 23:27 | External Medical Summary | Summary of Care ---
Author Name Unknown Organization [facility] Address [address] [place] [address] Phone [phone] Care Team Providers Care Returned Item Clerk Name Role Phone Km Aj Primary Care Provider Reason for Visit * Reason Onset Date Comments MyCode Consent 05/03/2024 Encounter Details Date Type Department Care Team (Late st Contact Info) Description 05/03/2024 Orders Only Outcomes Research Department [address] [place] [address] Yani Felder CHRA [employer] Research Other*[id number]* Allergies Active Allergy Reactions Criticality Noted Date [...] Tablet by mouth in the morning. Active [place]-3-6-9 CAPS Take 1 Cap by mouth every night at bedtime. Active Vitamin A 2400 MCG (8000 UT) CAPS Take 1 Cap by mouth daily. Active Potassium Chloride [place] ER 20 MEQ Oral Tablet Extended Release Take 2 Tablets by mouth in the morning. Pt takes 40 mEq in am.. 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 documented in this encounter Plan of Treatment Upcoming Encounters Date Type Department Care Team (Late st Contact Info) Description 05/07/2024 10:30 AM EST Office Visit Orthopaedics [facility] [address] [place] [phone] Madan Alonso MD [address] [place] [phone] 07/29/2024 10:40 AM EDT Office Visit Podiatry [facility] [address] [place] [phone] Janna Maldonado DPM [address] [facility] [place] [address] 09/20/2024 11:40 AM EDT Office Visit Family Practice [facility] [address] [place] [address] Km Aj DO [address] [facility] [place] [address] 04/20/2025 10:40 AM EST Office Visit Dermatology [facility] [place] [address] [place] [address] Valentina Gardiner PA-C [address] [facility] [address] Scheduled Orders Name Type Priority Associated Diagnoses Orde r Schedule MYCODE INITIAL ADULT Lab Routine [employer] Other*[id number] Expected: 05/03/2024 (Approximate), Expires: 05/23/2025 Health Maintenance Due Date Last Done Comments [...] as of this encounter Visit Diagnoses Diagnosis [employer] Other*[id number]- Primary documented in this encounter Care Teams Returned Item Clerk Relationship Specialty Start Date End Date Km Aj DO [address] [place] [address] PCP - General Family Medicine 10/26/19 documented as of this encounter
--- OUTSIDE RECORDS SUMMARY | 2024-06-30 23:28 | External Medical Summary | Summary of Care ---
Author Name Unknown Organization [facility] Address [address] [place] [address] Phone [phone] Care Team Providers Care Resources Representative Name Role Phone Km Aj DO Primary Care Provider Reason for Visit * Reason Comments Follow Up L foot Encounter Details Date Type Department Care Team (Late st Contact Info) Description 04/29/2024 12:40 PM EST Office Visit Podiatry [facility] [address] [place] [phone] Janna Maldonado DPM [address] [place] [address] Left foot pain*; Hallux limitus of left [...] Tablet by mouth in the morning. Active [place]-3-6-9 CAPS Take 1 Cap by mouth every [...] No 09/05/2023 Does the household have a [facility] source [facility] income? 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 Glynn in [place] with [facility]. She wears sneakers and boots/shoes. 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 [place]-3-6-9 CAPS Take 1 Cap by mouth every [...] documented in this encounter Nursing Notes * Alexandria Henson LPN - 04/29/2024 12:38 PM EST Pt presents for 3 month follow up L foot, receive L 1st MPJ injection 01/20/2024 with relief, wouldlike another injection today. documented in this encounter Plan of Treatment Upcoming Encounters Date Type Department Care Team (Late st Contact Info) Description 05/07/2024 10:30 AM EST Office Visit Orthopaedics [facility] [address] [place] [phone] Madan Alonso MD [address] [place] [phone] 07/29/2024 10:40 AM EDT Office Visit Podiatry [facility] [address] [place] [phone] Janna Maldonado, DPM [address] [place] [address] 09/20/2024 11:40 AM EDT Office Visit Family Practice [facility] [address] [place] [address] Km Aj, [address] [place] [address] 04/20/2025 10:40 AM EST Office Visit Dermatology [facility] [place] [address] [place] [address] Valentina Gardiner PA-C [address] [place] [address] Health Maintenance Due Date Last Done Comments [...] foot documented in this encounter Care Teams Resources Representative Relationship Specialty Start Date End Date Km Aj DO [address] [place] [address] PCP - General Family Medicine 10/26/19 documented as of this encounter
--- OUTSIDE RECORDS SUMMARY | 2024-06-30 23:28 | External Medical Summary | Summary of Care ---
Author Name Unknown Organization [facility] Address [address] [facility] [place] [address] Phone [phone] Care Team Providers Care Potable Water Treatment Operator Name Role Phone Tracy Aj DO Primary Care Provider Reason for Visit * Reason Comments eRx-Medication Refill Encounter Details Date Type Department Care Team (Late st Contact Info) Description 02/24/2024 Refill Family Practice [facility] [address] [place] [id number] Tracy Aj DO [address] [place] [address] Acute sinusitis Allergies Active Allergy Reactions Criticality Noted Date Comments Pollen Other (Please comment) 03/06/2015 Congestion, sinus pressure Ragweed Other (Please comment) 03/06/2015 Congestion, sinus pressure documented as of this encounter (statuses as of 02/25/2024) Medications LOYD MULTIVITAMIN FOR WOMEN PO TABS one tablet daily Active VITAMIN D 400 UNITS PO TABS one tablet daily Active Cyanocobalamin (VITAMIN B12) 100 MCG TABS Take 1 Tablet by mouth in the morning. Active [place]-3-6-9 CAPS Take 1 Cap by mouth every night at bedtime. Active Vitamin A 2400 MCG (8000 UT) CAPS Take 1 Cap by mouth daily. Active Potassium Chloride Karley ER 20 MEQ Oral Tablet Extended Release Take 2 Tablets by mouth in the morning. Pt takes 40 mEq in am.. 06/29/19 21 Active Potassium Citrate ER 10 MEQ (1080 MG) Oral Tablet Extended Release (Urocit-K) Take 1 Tablet by mouth in the morning. 03/28/20 Active Xiidra 5 % Ophthalmic Solution (Lifitegrast) Instill 5 Drops into eye 2 times a day. 05/30/19 21 Active hydroCHLOROthiaz leonides 50 MG Oral Tablet (Hydrodiuril)Ind ications:HTN, goal below 130/80 Take 1 Tablet by mouth in the morning. Take 1 tab by mouth in the am.. 90 Tablet 3 09/18/19 24 Active metFORMIN HCl ER 500 MG Oral Tablet Extended Release 24 Hour (Glucophage XR)Indications:P rediabetes Take 1 Tablet by mouth in the morning. In the morning.. 90 Tablet 3 09/18/19 24 Active Phentermine HCl 37.5 MG Oral TabletIndication s:Overweight (BMI 25.0-29.9) Take 1 Tablet by mouth daily before breakfast. 90 Tablet 1 09/25/19 24 Active Atorvastatin Calcium 40 MG Oral Tablet (Lipitor)Indicat ions:Hyperlipide norris with target LDL less than 160 Take 1 Tablet by mouth in the morning. 90 Tablet 3 10/15/19 24 Active Azithromycin 250 MG Oral Tablet (Zithromax Z-Geovany) Take two tablets by mouth on first day, then 1 tablet daily until gone 6 Tablet 02/16/20 24 Active Fluticasone Propionate 50 MCG/ACT Nasal Suspension (Flonase)Indicat ions:Acute sinusitis USE 2 SPRAYS IN EACH NOSTRIL DAILY 48 g 1 02/25/20 24 Active Fluticasone Propionate 50 MCG/ACT Nasal Suspension (Flonase)Indicat ions:Acute sinusitis USE 2 SPRAYS IN EACH NOSTRIL DAILY 48 g 3 03/03/20 23 024 Discontinued documented as of this encounter (statuses as of 02/25/2024) Active Problems Problem Noted Date Diagnosed Date [...] as of this encounter (statuses as of 02/25/2024) Resolved Problems Problem Noted Date Diagnosed Date Resolved Date Sepsis due to Escherichia co li with acute organ dysfunction and septic shock 10/26/201901/16 Elevated blood pressure, situational 01/08/2018 10/20/2018 Neoplasm of uncertain behavior of skin 06/22/2014 01/16/2017 History of basal cell carcinoma 06/22/2014 01/16/2017 MALIG HARMONY SKIN LEG 12/21/2004 7 documented as of this encounter (statuses as of 02/25/2024) Immunizations Name Administration Dates Next Due Covid-19 [...] No 09/05/2023 Does the household have a [facility] income? 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 Not on file Not on file documented as of this encounter Miscellaneous Notes * Telephone Encounter - Mat Murray [facility] - 02/25/2024 1:05 PM ESTSigned Prescriptions: Disp Refills Fluticasone Propionate 50 MCG/ACT Nasal Lopez*48 g 1 Sig: USE 2 SPRAYS IN EACH NOSTRIL DAILYAuthorizing Provider: TRACY AJ User: MAT MURRAY- documented in this encounter Plan of Treatment Upcoming Encounters Date Type Department Care Team (Late st Contact Info) Description 04/19/2024 9:40 AM EST Office Visit Dermatology [facility] [place] [address] [place] [address] Valentina Gardiner PA-C [address] [facility] [place] [address] 04/22/2024 11:00 AM EST Office Visit Podiatry [facility] [address] [place] [address] Janna Maldonado DPM [address] [place] [address] 05/07/2024 10:30 AM EST Office Visit Orthopaedics [facility] [address] [place] [address] Madan Alonso MD [address] [place] [address] 09/20/2024 11:40 AM EDT Office Visit Family Practice [facility] [address] [place] [address] Tracy Aj, [address] [place] [address] Health Maintenance Due Date Last Done Comments Cologuard 08/23/2007 Sigmoidoscopy 08/23/2007 Zoster Vaccines (1 of 2) 2012 DTap/Tdap [...] on patient's age to complete this topic Pneumococcal Vaccine: Pediatrics (0 to 5 Years) and At-Risk Patients (6 to 64 Years) Aged Out No longer eligible based on patient's age to complete this topic documented as of this encounter Medical Devices Not on filedocumented as of this encounter Visit Diagnoses Diagnosis Acute sinusitis Acute sinusitis, unspecified documented in this encounter Care Teams Potable Water Treatment Operator Relationship Specialty Start Date End Date Tracy Aj DO [address] [place] [address] PCP - General Family Medicine 10/26/19 documented as of this encounter
--- OUTSIDE RECORDS SUMMARY | 2024-06-30 23:28 | External Medical Summary | Summary of Care ---
Author Name Unknown Organization [facility] Address [address] [facility] [place] [address] Phone [phone] Care Team Providers Care Senior Principal Software Engineer Name Role Phone Km Aj DO Primary Care Provider Encounter Details Date Type Department Care Team (Late st Contact Info) Description 03/10/2024 Orders Only Family Practice [facility] [address] [place] [address] Arnol Cardenas CRNP [address] [place] [address] Urinary tract infection without hematuria, site unspecified* Allergies Active Allergy Reactions Criticality Noted Date Comments Pollen Other (Please comment) 03/06/2015 Congestion, sinus pressure Ragweed Other (Please comment) 03/06/2015 Congestion, sinus pressure documented as of this encounter (statuses as of 03/10/2024) Medications LOYD MULTIVITAMIN FOR WOMEN PO TABS one tablet daily Active VITAMIN D 400 UNITS PO TABS one tablet daily Active Cyanocobalamin (VITAMIN B12) 100 MCG TABS Take 1 Tablet by mouth in the morning. Active [place]-3-6-9 CAPS Take 1 Cap by mouth every [...] before breakfast. 90 Tablet 1 4 Active Atorvastatin Calcium 40 MG Oral Tablet (Lipitor)Indicati ons:Hyperlipidemi a with target LDL less than 160 Take 1 Tablet by mouth in the morning. 90 Tablet 3 4 Active Azithromycin 250 MG Oral Tablet (Zithromax Z-Geovany) Take two tablets by mouth on first day, then 1 tablet daily until gone 6 Tablet 4 Active Fluticasone Propionate 50 MCG/ACT Nasal Suspension (Flonase)Indicati ons:Acute sinusitis USE 2 SPRAYS IN EACH NOSTRIL DAILY 48 g 1 4 Active Sulfamethoxazole- Trimethoprim 800-160 MG Oral Tablet (Bactrim DS)Indications:Ur inary tract infection without hematuria, site unspecified Take 1 Tablet by mouth in the morning and 1 Tablet before bedtime. Do all this for 3 days. Until gone. 6 Tablet 4 03/13/20 24 Active documented as of this encounter (statuses as of 03/10/2024) Active Problems Problem Noted Date Diagnosed Date [...] as of this encounter (statuses as of 03/10/2024) Resolved Problems Problem Noted Date Diagnosed Date Resolved Date Sepsis due to Escherichia co li with acute organ dysfunction and septic shock 10/26/201901/16 Elevated blood pressure, situational 01/08/2018 10/20/2018 Neoplasm of uncertain behavior of skin 06/22/2014 01/16/2017 History of basal cell carcinoma 06/22/2014 01/16/2017 MALIG HARMONY SKIN LEG 12/21/2004 7 documented as of this encounter (statuses as of 03/10/2024) Immunizations Name Administration Dates Next Due Covid-19 [...] 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 Not on file Not on file documented as of this encounter Plan of Treatment Upcoming Encounters Date Type Department Care Team (Late st Contact Info) Description 04/19/2024 9:40 AM EST Office Visit Dermatology [facility], [address] [address] Valentina Balderas PA-C [address] [facility] [place] [address] 04/22/2024 11:00 AM EST Office Visit Podiatry [facility] [address] [place] [address] Janna Maldonado DPM [address] [place] [address] 05/07/2024 10:30 AM EST Office Visit Orthopaedics [facility] [address] [place] [address] Madan Alonso MD [address] [place] [address] 09/20/2024 11:40 AM EDT Office Visit Family Practice [facility] [address] [place] [address] Km Aj DO [address] [place] [address] Health Maintenance Due Date Last Done Comments [...] as of this encounter Visit Diagnoses Diagnosis Urinary tract infection without hematuria, site unspecified- Primary documented in this encounter Care Teams Senior Principal Software Engineer Relationship Specialty Start Date End Date Km Aj DO [address] [place] [address] PCP - General Family Medicine 10/26/19 documented as of this encounter
--- OUTSIDE RECORDS SUMMARY | 2024-06-30 23:28 | External Medical Summary | Summary of Care ---
Author Name Unknown Organization [facility] Address [address] [facility] [place] [address] Phone [phone] Care Team Providers Care Diamond Blender Name Role Phone Km Aj DO Primary Care Provider Encounter Details Date Type Department Care Team (Late st Contact Info) Description 02/24/2024 Orders Only PATIENT PORTAL DO NOT DELETE THIS DEPT USED BY [place] [address] Allergies Active Allergy Reactions Criticality Noted Date Comments Pollen Other (Please comment) 03/06/2015 Congestion, sinus pressure Ragweed Other (Please comment) 03/06/2015 Congestion, sinus pressure documented as of this encounter (statuses as of 02/24/2024) Medications LOYD MULTIVITAMIN FOR WOMEN PO TABS one tablet daily Active VITAMIN D 400 UNITS PO TABS one tablet daily Active Cyanocobalamin (VITAMIN B12) 100 MCG TABS Take 1 Tablet by mouth in the morning. Active [place]-3-6-9 CAPS Take 1 Cap by mouth every [...] eye 2 times a day. 1 Active Fluticasone Propionate 50 MCG/ACT Nasal Suspension (Flonase)Indicati ons:Acute sinusitis USE 2 SPRAYS IN EACH NOSTRIL DAILY 48 g 3 3 Active hydroCHLOROthiazi de 50 MG Oral Tablet [...] daily until gone 6 Tablet 4 Active documented as of this encounter (statuses as of 02/24/2024) Active Problems Problem Noted Date Diagnosed Date Pain and swelling of knee, right 11/28/2021 HTN, goal below 130/80 04/14/2018 Hyperlipidemia with target LDL less than 160 History of retinal detachment 01/28/2017 Overview (01/28/2017): Bilateral, unknown cause, surgical repair History of nonmelanoma skin cancer 01/16/2017 Overview (01/16/2017): Hx of BCC on right chest - 2015 Hearing loss, bilateral 01/10/2017 Overview (01/10/2017): Bilateral hearing aids Other allergic rhinitis 08/13/2000 Overview (01/28/2017): ICD-10 update of inactive term FAMILY HX-BREAST MALIG 08/13/2000 documented as of this encounter (statuses as of 02/24/2024) Resolved Problems Problem Noted Date Diagnosed Date Resolved Date Sepsis due to Escherichia co li with acute organ dysfunction and septic shock 10/26/201901/16 Elevated blood pressure, situational 01/08/2018 10/20/2018 Neoplasm of uncertain behavior of skin 06/22/2014 01/16/2017 History of basal cell carcinoma 06/22/2014 01/16/2017 MALIG HARMONY SKIN LEG 12/21/2004 7 documented as of this encounter (statuses as of 02/24/2024) Immunizations Name Administration Dates Next Due Covid-19 [...] 3:29 PM EST Sexual Orientation Straight 04/26/2019 3 :29 PM EST 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 Not on file Not on file documented as of this encounter Plan of Treatment Upcoming Encounters Date Type Department Care Team (Late st Contact Info) Description 04/19/2024 9:40 AM EST [facility] [address] [facility] [place] [address] Valentina Gardiner PA-C [address] [facility] [place] [address] 04/22/2024 11:00 AM EST Office [facility] [address] [facility] [address] [place] [address] Janna Maldonado DPM [address] [place] [address] 05/07/2024 10:30 AM EST Office Visit Orthopaedics [facility] [address] [place] [address] Madan Alonso MD [address] [place] [address] 09/20/2024 11:40 AM EDT Office Visit Family Practice [facility] [address] [place] [address] Km Aj DO [address] [place] [address] Health Maintenance Due Date Last Done Comments [...] Not on filedocumented as of this encounter Care Teams Diamond Blender Relationship Specialty Start Date End Date Km Aj DO [address] [place] [address] PCP - General Family Medicine 10/26/19 documented as of this encounter
--- OUTSIDE RECORDS SUMMARY | 2024-06-30 23:28 | External Medical Summary | Summary of Care ---
Author Name Unknown Organization [facility] Address [address] [place] [address] Phone [phone] Care Team Providers Care Cytotechnologist/Cytology Supervisor Name Role Phone Jean Marie Km Serranojordi Primary Care Provider Reason for Visit * Reason Comments Skin Check Routine skin exam. R eport spot on right foot. Encounter Details Date Type Department Care Team (Late st Contact Info) Description 04/19/2024 9:40 AM EST Office Visit Dermatology [address] [address] Valentina Gardiner PA-C [address] [place] [address] Diffuse photodamage of skin*; Corns and callosities; Multiple pigmented nevi; History of nonmelanoma skin cancer; History of atypical nevus; Skin exam, screening for cancer Allergies Active Allergy Reactions Criticality Noted Date Comments Pollen Other (Please comment) 03/06/2015 Congestion, sinus pressure Ragweed Other (Please comment) 03/06/2015 Congestion, sinus pressure documented as of this encounter (statuses as of 04/19/2024) Medications LOYD MULTIVITAMIN FOR WOMEN PO TABS one tablet daily Active VITAMIN D 400 UNITS PO TABS one tablet daily Active Cyanocobalamin (VITAMIN B12) 100 MCG TABS Take 1 Tablet by mouth in the morning. Active [place]-3-6-9 CAPS Take 1 Cap by mouth every [...] as of this encounter (statuses as of 04/19/2024) Active Problems Problem Noted Date Diagnosed Date [...] as of this encounter (statuses as of 04/19/2024) Resolved Problems Problem Noted Date Diagnosed Date Resolved Date Sepsis due to Escherichia co li with acute organ dysfunction and septic shock 10/26/201901/16 Elevated blood pressure, situational 01/08/2018 10/20/2018 Neoplasm of uncertain behavior of skin 06/22/2014 01/16/2017 History of basal cell carcinoma 06/22/2014 01/16/2017 MALIG HARMONY SKIN LEG 12/21/2004 7 documented as of this encounter (statuses as of 04/19/2024) Immunizations Name Administration Dates Next Due Covid-19 [...] 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 Vito Coughlin MD., Dermatology [facility] Outpatient Specialty Departments [facility] [place] [address] * Valentina Gardiner PA-C - 04/19/2024 9:39 AM EST Nursing Notes: Taylor Elizabeth LPN 04/19/24 0940 Signed Patient identified by name and date. Chief Complaint Patient presents with Skin Check Routine skin exam. Report spot on right foot. SUBJECTIVE: HPI: Eneida Olmstead is a 62 year old female who is an established patient seen for follow-up full skin exam. Patient last visit on 03/17/23 C/o painful growth R second toe x months. Wart? No previous attempted tx Hx of moderately atypical nevus of L midback 2022 Hx of BCC R chest 2017, BCC R chest 2014, BCC L leg 2004 Wears sunscreen regularly Recently moved to [facility]- enjoys boating REVIEW OF SYSTEMS: See HPI- all other findings negative Constitutional: (-) fever, chills, sweats, weight loss Cardiovascular: (-) lower extremity edema Skin: (-) no rash or new or changing moles or skin lesions MEDICA TIONS: Current Outpatient Medications Medication Sig Dispense Refill LOYD MULTIVITAMIN FOR WOMEN PO TABS one tablet daily VITAMIN D 400 UNITS PO TABS one tablet daily Cyanocobalamin (VITAMIN B12) 100 MCG TABS Take 1 Tablet by mouth in the morning. [place]-3-6-9 CAPS Take 1 Cap by mouth every [...] No current facility-administered medications for this visit. ALLERG Y: Pollen and Ragweed OBJECTIVE: GEN: Healthy, alert, no distress, appears oriented, pleasant, and cooperative. PSYCH: Appropriate mood and affect, alert SKIN: Detailed exam of scalp, hair, face including lids and lips, ears, neck, chest, back, abdomen,buttocks, bilateral upper extremities and bilateral lower extremities including the nails and digits was completed and are within normal limits with the following exceptions: 1. Hyperkeratotic conical papule R medial second toe 2. Scattered benign appearing lesions over examined skin including scattered benign and relatively monomorphic appearing melanocytic nevi, waxy flesh- colored, greyish brown benign and non-inflamed appearing stuck-on papules and plaques, benign and uniform appearing brown macules and patches in sun exposed areas, bright red benign appearing dome-shaped papules and macules, and solar elastosis and evident photodamage of sunexposed skin. 3. Scar R chest and L leg 4. Scar L midback ASSESSMENT/PLAN: 1.Lamont - discussed etiology and nature of condition - recommend otc medicated corn pads or salud acid application under occlusion 2. Photodamage - The signs and symptoms of skin cancer were reviewed and the patient was advised to practice sun protection and sun avoidance, use daily sunscreen, and perform regular self skin exams. 3. Multiple benign-appearing nevi - No features concerning for malignancy on exam today. - Continue to monitor with monthly self-skin exams. - Patient counseled on ABCDEs of melanoma. - Discussed and emphasized importance of sun protection including broadband, water-resistant, SPF 30 or greater sunscreen with reapplication q2h or after swimming/excessive perspiration and sun protective attire (wide-brimmed hats, long pants/shirt, sunglasses). - Patient to contact physician for any new or changing lesions or other concerns. 4. H/o nonmelanoma skin cancer - No evidence of disease, continue to monitor 5. H/o Atypical nevus - No evidence of disease, continue to monitor 6. Routine Skin Examination For Skin Cancer -Educated patient on ABCDE's. -Advised patient that if they notice any of these changes to please call for a follow-up appointment as soon as possible. -Counseled patient on criteria for good sunscreen including SPF 30 or higher, broad spectrum (UVA and UVB) and water resistant (up to 40 to 80 minutes). Advised to reapply sunscreen every 2 hours andafter swimming or profuse sweating. Advised to wear protective clothing when out in the sun including long sleeved shirt, pants, wide-brimmed hat and sunglasses. Informed to seek shade during 10 AM to 4 PM when the sun's rays are the strongest. -Advised to perform routine (at least once a year) skin self-examinations. Advised to contact theirdermatologist immediately if they notice any new or changing skin lesions. Patient alone today. Follow-up: 1 year Photos taken, patient consented to photos taken. Applicable photos (if any) and chart reviewed by Dr. Vito Coughlin The patient was encouraged to contact me with any further questions or concerns. Valentina Gardiner PA-C 04/19/24 documented in this encounter Nursing Notes * Taylor Elizabeth LPN - 04/19/2024 9:40 AM EST Patient identified by name and date. Chief Complaint Patient presents with Skin Check Routine skin exam. Report spot on right foot. documented in this encounter Plan of Treatment Upcoming Encounters Date Type Department Care Team (Late st Contact Info) Description 04/22/2024 11:00 AM EST Office Visit Podiatry [facility] [address] [place] [address] Janna Maldonado DPM [address] [place] [address] 05/07/2024 10:30 AM EST Office Visit Orthopaedics [facility] [address] [place] [address] Madan Alonso MD [address] [place] [address] 09/20/2024 11:40 AM EDT Office Visit Family Practice [facility] [address] [place] [address] Km Aj, [address] [place] [address] 04/20/2025 10:40 AM EST Office Visit Dermatology [facility] [place] [address] [place] [address] Valentina Gardiner PA-C [address] [place] [address] Health Maintenance Due Date Last Done Comments [...] Procedure Name Priority Date/Time Associated Diagnosis Comments DERM EXAM - DERM (IMAGES ONLY, NO REPORT) Routine 04/19/2024 9:41 AM EST Diffuse photodamage of skin Multiple pigmented nevi History of nonmelanoma skin cancer History of atypical nevus Skin exam, screening for cancer documented in this encounter Results * DERM EXAM - DERM (IMAGES ONLY, NO REPORT) (04/19/2024 9:41 AM EST) Narrative Scheduling, Silent - 04/19/2024 9:41 AM EST This is an imaging study not interpreted or resulted by a [facility] or [facility] contracted radiologist. Valentina Gardiner PA-C RADIOLOGY ([facility]) Final Result documented in this encounter Visit Diagnoses Diagnosis Diffuse photodamage of skin- Primary Other chronic dermatitis due to solar radiation Corns and callosities Multiple pigmented nevi Benign neoplasm of skin, site unspecified History of nonmelanoma skin cancer Personal history of other malignant neoplasm of skin History of atypical nevus Personal history of diseases of skin and subcutaneous tissue Skin exam, screening for cancer Screening for malignant neoplasm of the skin documented in this encounter Care Teams Cytotechnologist/Cytology Supervisor Relationship Specialty Start Date End Date Km Aj DO [address] [place] [address] PCP - General Family Medicine 10/26/19 documented as of this encounter
--- OUTSIDE RECORDS SUMMARY | 2024-06-30 23:28 | External Medical Summary | Summary of Care ---
Author Name Unknown Organization [facility] Address [address] [facility] [place] [address] Phone [phone] Care Team Providers Care Apprentice Electrician Name Role Phone Tracy Aj DO Primary Care Provider Reason for Visit * Reason Comments New Med Request Encounter Details Date Type Department Care Team (Late st Contact Info) Description 03/27/2024 Refill Family Practice [facility] [address] [place] [address] Tracy Aj DO [address] [place] [address] Hyperlipidemia with target LDL less than 160 Allergies Active Allergy Reactions Criticality Noted Date Comments Pollen Other (Please comment) 03/06/2015 Congestion, sinus pressure Ragweed Other (Please comment) 03/06/2015 Congestion, sinus pressure documented as of this encounter (statuses as of 03/29/2024) Medications LOYD MULTIVITAMIN FOR WOMEN PO TABS one tablet daily Active VITAMIN D 400 UNITS PO TABS one tablet daily Active Cyanocobalamin (VITAMIN B12) 100 MCG TABS Take 1 Tablet by mouth in the morning. Active [place]-3-6-9 CAPS Take 1 Cap by mouth every [...] breakfast. 90 Tablet 1 09/25/19 24 Active Azithromycin 250 MG Oral Tablet (Zithromax Z-Geovany) Take two tablets by mouth on first day, then 1 tablet daily until gone 6 Tablet 02/16/20 24 Active Fluticasone Propionate 50 MCG/ACT Nasal Suspension (Flonase)Indicat ions:Acute sinusitis USE 2 SPRAYS IN EACH NOSTRIL DAILY 48 g 1 02/25/20 24 Active Atorvastatin Calcium 40 MG Oral Tablet (Lipitor)Indicat ions:Hyperlipide norris with target LDL less than 160 Take 1 Tablet by mouth in the morning. 90 Tablet 1 03/29/20 24 Active Atorvastatin Calcium 40 MG Oral Tablet (Lipitor)Indicat ions:Hyperlipide norris with target LDL less than 160 Take 1 Tablet by mouth in the morning. 90 Tablet 3 10/15/19 24 024 Discontinued documented as of this encounter (statuses as of 03/29/2024) Active Problems Problem Noted Date Diagnosed Date [...] as of this encounter (statuses as of 03/29/2024) Resolved Problems Problem Noted Date Diagnosed Date Resolved Date Sepsis due to Escherichia co li with acute organ dysfunction and septic shock 10/26/201901/16 Elevated blood pressure, situational 01/08/2018 10/20/2018 Neoplasm of uncertain behavior of skin 06/22/2014 01/16/2017 History of basal cell carcinoma 06/22/2014 01/16/2017 MALIG HARMONY SKIN LEG 12/21/2004 7 documented as of this encounter (statuses as of 03/29/2024) Immunizations Name Administration Dates Next Due Covid-19 [...] No 09/05/2023 [facility] the [facility] have a [facility]? (Household - for ages [...] encounter Miscellaneous Notes * Telephone Encounter - Germaine Alexander [facility] - 03/29/2024 2:34 PM ESTSigned Prescriptions: Disp Refills Atorvastatin Calcium 40 MG Oral Tablet (Li*90 Tab*1 Sig: Take 1 Tablet by mouth in the morning.Authorizing Provider: TRACY AJ User: GERMAINE ALEXANDER * Telephone Encounter - Germaine Alexander RPh - 03/29/2024 2:33 PM EST Rerouted remaining refills to new pharmacy as requested. Thanks, Germaine Alexander Clinical Pharmacist [facility] [phone] 03/29/2024, 2:33 PM documented in this encounter Plan of Treatment Upcoming Encounters Date Type Department Care Team (Late st Contact Info) Description 04/19/2024 9:40 AM EST Office Visit Dermatology [facility] [address] [place] [address] Valentina Gardiner PA-C [address] [place] [address] 04/22/2024 10:40 AM EST Office Visit Family Practice [facility] [address] [facility] [place] [address] Margie Vazquez CRNP [address] [place] [address] 04/22/2024 11:00 AM EST Office Visit Podiatry [facility] [address] [place] [address] Janna Maldonado DPM [address] [place] [address] 05/07/2024 10:30 AM EST Office Visit Orthopaedics [facility] [address] [place] [address] Madan Alonso MD [address] [place] [address] 09/20/2024 11:40 AM EDT Office Visit Family Practice [facility] [address] [place] [address] Tracy Aj DO [address] [place] [address] Health Maintenance Due Date Last Done Comments [...] as of this encounter Visit Diagnoses Diagnosis Hyperlipidemia with target LDL less than 160 Other and unspecified hyperlipidemia documented in this encounter Care Teams Apprentice Electrician Relationship Specialty Start Date End Date Tracy Aj DO [address] [place] [address] PCP - General Family Medicine 10/26/19 documented as of this encounter
--- OUTSIDE RECORDS SUMMARY | 2024-06-30 23:28 | External Medical Summary ---
Author Name Unknown Address Unknown Organization K01:[facility] - [address] [facility] [address] Laboratory Report Ordering Provider Test Date Status ERNESTO MEDINA 03/08/2024 10:15:06 Final <10,000 colonies/ml mixed no rmal brant Observation Date Value Abnormality Reference (Units ) Status Bacteria identified in Specimen by Culture 03/08/2024 10:15:06 [id number]^KLEBSIELL A PNEUMONIAE Abnormal Final >100,000 colonies/mL Klebsie lla pneumoniae Bacteria identified in Specimen by Culture 03/08/2024 10:15:06 [id number]^KLEBSIELLA PNEUMONIAE Abnormal Final >100,000 colonies/mL - secon d type Klebsiella pneumoniae Performing Location LABORATORY C - [address] [facility] [address] Ordering Provider Test Date Status ERNESTO MEDINA 03/08/2024 10:15:06 Final Observation Date Value Abnormality Reference (Units ) Status Ampicillin + Sulbactam 03/08/2024 10:15:06 4 Susceptible Final Cefazolin 03/08/2024 10:15:06 <=4 Susceptible Final Cefepime susceptibility 03/08/2024 10:15:06 <=1 Susceptible Final Ceftriaxone suceptibility 03/08/2024 10:15:06 <=1 Susceptible Final Ciprofloxacin 03/08/2024 10:15:06 <=0.25 Susceptible Final Due to serious side effects, the FDA has advised against using Ciprofloxacin to treat uncomplicated UTIs and respiratory tract infections unless there are no alternative treatment options. Gentamicin susceptibility 03/08/2024 10:15:06 <=1 Susc eptible Final Nitrofurantoin susceptibility 03/08/2024 10:15:06 32 Susceptible Final Piperacillin + Tazobactamsusceptibility 03/08/2024 10:15:06 <=4 Susceptible Final TMP-SMZ susceptibility 03/08/2024 10:15:06 <=20 Suscept ible Final Performing Location LABORATORY C - [address] [place] [address] Ordering Provider Test Date Status ERNESTO MEDINA 03/08/2024 10:15:06 Final Observation Date Value Abnormality Reference (Units ) Status Ampicillin + Sulbactam 03/08/2024 10:15:06 4 Susceptible Final Cefazolin 03/08/2024 10:15:06 <=4 Susceptible Final Cefepime susceptibility 03/08/2024 10:15:06 <=1 Susceptible Final Ceftriaxone suceptibility 03/08/2024 10:15:06 <=1 Susceptible Final Ciprofloxacin 03/08/2024 10:15:06 <=0.25 Susceptible Final Due to serious side effects, the FDA has advised against using Ciprofloxacin to treat uncomplicated UTIs and respiratory tract infections unless there are no alternative treatment options. Gentamicin susceptibility 03/08/2024 10:15:06 <=1 Susc eptible Final Nitrofurantoin susceptibility 03/08/2024 10:15:06 64 Intermediate Final Piperacillin + Tazobactamsusceptibility 03/08/2024 10:15:06 <=4 Susceptible Final TMP-SMZ susceptibility 03/08/2024 10:15:06 <=20 Suscept ible Final Test: Culture, Urine, Quanti tative
Specimen Source: Urine, Unspecified
Specimen Type: Urine
Specimen Date: 03/08/2024 1015
Result Date: 03/12/2024 1139
Result Status: Final result
Abnormal: Yes
Resulting Lab: [facility]
[address]
[place] [address]

CULTURE

>100,000 colonies/mL Klebsiella pneumoniae (Abnormal)

>100,000 colonies/mL - second type Klebsiella pneumoniae (Abnormal)

<10,000 colonies/ml mixed normal brant

SUSCEPTIBILITY

Klebsiella Klebsiella
pneumoniae (1) pneumoniae (2)
METHOD MICROBROTH DILUTIONS MICROBROTH DILUTIONS

AMPICILLIN/SULBACTAM 4 Susceptible 4 Susceptible
CEFAZOLIN <=4 Susceptible <=4 Susceptible
CEFEPIME <=1 Susceptible <=1 Susceptible
CEFTRIAXONE <=1 Susceptible <=1 Susceptible
CIPROFLOXACIN <=0.25 Susceptible <=0.25 Susceptible
[1] [2]
GENTAMICIN <=1 Susceptible <=1 Susceptible
NITROFURANTOIN 32 Susceptible 64 Intermediate
PIPERACILLIN TAZOBACTAM <=4 Susceptible <=4 Susceptible
TRIMETH/SULFAMETHOXAZOLE <=20 Susceptible <=20 Susceptible

[1] Due to serious side effects, the FDA has advised against using
Ciprofloxacin to treat uncomplicated UTIs and respiratory tract infections
unless there are no alternative treatment options.

[2] Due to serious side effects, the FDA has advised against using
Ciprofloxacin to treat uncomplicated UTIs and respiratory tract infections
unless there are no alternative treatment options.

null Performing Location [facility] [place] [address] [facility] [address]
--- OUTSIDE RECORDS SUMMARY | 2024-06-30 23:28 | External Medical Summary | Summary of Care ---
Author Name Unknown Organization [facility] Address [address] [place] [address] Phone [phone] Care Team Providers Care Medical Office Secretary Name Role Phone Jean Marie Km Serranojordi Primary Care Provider Reason for Visit * Reason Comments Skin Check Routine skin exam. R eport spot on right foot. Encounter Details Date Type Department Care Team (Late st Contact Info) Description 04/19/2024 9:40 AM EST Office Visit Dermatology [address] [address] Valentina Gardiner PA-C [address] [place] [address] Diffuse photodamage of skin*; Corns and callosities; [...] Tablet by mouth in the morning. 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 Vito Coughlin MD., Dermatology [facility] Outpatient Specialty Departments [facility] [facility] [place] [address] * Valentina Gardiner PA-C - 04/19/2024 9:39 [...] 2004 Wears sunscreen regularly Recently moved to [facility]- enjoys boating REVIEW OF SYSTEMS: See [...] 1 Tablet by mouth in the morning. [place]-3-6-9 CAPS Take 1 Cap by mouth every [...] L leg 4. Scar L midback ASSESSMENT/PLAN: 1.[place] - discussed etiology and nature of condition [...] 04/22/2024 11:00 AM EST Office Visit Podiatry [facility] [address] [place] [address] Janna Maldonado DPM [address] [place] [address] 05/07/2024 10:30 AM EST Office Visit Orthopaedics [facility] [address] [place] [address] Madan Alonso MD [address] [place] [address] 09/20/2024 11:40 AM EDT Office Visit Family Practice [facility] [address] [place] [address] [address], [address] [place] [address] 04/20/2025 10:40 AM EST Office Visit Dermatology [facility] [place] [address] [place] [address] Valentina Gardiner PA-C [address] [place] [address] Health Maintenance Due Date Last Done Comments [...] interpreted or resulted by a [facility] or [facility] contracted radiologist. Valentina Gardiner PA-C RADIOLOGY ([facility]) Final Result documented in this encounter Visit [...] skin documented in this encounter Care Teams Medical Office Secretary Relationship Specialty Start Date End Date Km Aj DO [address] [place] [address] PCP - General Family Medicine 10/26/19 documented as of this encounter
--- OUTSIDE RECORDS SUMMARY | 2024-06-30 23:28 | External Medical Summary | Summary of Care ---
Author Name Unknown Organization [facility] Address [address] [facility] [place] [address] Phone [phone] Care Team Providers Care Transportation Security Screener Name Role Phone Km Aj DO Primary Care Provider Reason for Visit * Reason Comments Outpatient Testing Encounter Details Date Type Department Care Team (Late st Contact Info) Description 03/08/2024 10:20 AM EST Laboratory Laboratory, [facility] [address] [facility] [address] [facility] [address] [place] [address] Fever, unspecified fever cause Allergies Active Allergy Reactions Criticality Noted Date Comments Pollen Other (Please comment) 03/06/2015 Congestion, sinus pressure Ragweed Other (Please comment) 03/06/2015 Congestion, sinus pressure documented as of this encounter (statuses as of 03/08/2024) Medications LOYD MULTIVITAMIN FOR WOMEN PO TABS one tablet daily Active VITAMIN D 400 UNITS PO TABS one tablet daily Active Cyanocobalamin (VITAMIN B12) 100 MCG TABS Take 1 Tablet by mouth in the morning. Active [employer]-3-6-9 CAPS Take 1 Cap by mouth every [...] NOSTRIL DAILY 48 g 1 4 Active documented as of this encounter (statuses as of 03/08/2024) Active Problems Problem Noted Date Diagnosed Date [...] as of this encounter (statuses as of 03/08/2024) Resolved Problems Problem Noted Date Diagnosed Date Resolved Date Sepsis due to Escherichia co li with acute organ dysfunction and septic shock 10/26/201901/16 Elevated blood pressure, situational 01/08/2018 10/20/2018 Neoplasm of uncertain behavior of skin 06/22/2014 01/16/2017 History of basal cell carcinoma 06/22/2014 01/16/2017 MALIG HARMONY SKIN LEG 12/21/2004 7 documented as of this encounter (statuses as of 03/08/2024) Immunizations Name Administration Dates Next Due Covid-19 [...] No 09/05/2023 Does the household have a [facility] source of income? 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 Not on file Not on file documented as of this encounter Plan of Treatment Upcoming Encounters Date Type Department Care Team (Late st Contact Info) Description 04/19/2024 9:40 AM EST Office Visit Dermatology [facility] [address] [facility] [place] [address] Valentina Gardiner PA-C [address] [facility] [place] [address] 04/22/2024 11:00 AM EST Office Visit Podiatry [facility] [address] [facility] [place] [address] Janna Maldonado DPM [address] [place] [place] [address] 05/07/2024 10:30 AM EST Office Visit Orthopaedics [facility] [address] [place] [address] Madan Alonso MD [address] [place] [address] 09/20/2024 11:40 AM EDT Office Visit Family Practice [facility] [address] [place] [address] Km Aj DO [address] [facility] [place] [address] Pending Results Name Type Priority Associated Diagnoses Date /Time URINALYSIS, REFLEX TO CULTURE (NOT FOR NEUTROPENIC PATIENTS) Lab Routine Fever, unspecified fever cause 03/08/2024 10:15 AM EST URINALYSIS, REFLEX TO CULTURE (CUP ONLY) Lab Routine Fever, unspecified fever cause 03/08/2024 10:15 AM EST URINALYSIS, REFLEX TO CULTURE Lab Routine Fever, unspecified fever cause 03/08/2024 10:15 AM EST Health Maintenance Due Date Last Done Comments [...] as of this encounter Visit Diagnoses Diagnosis Fever, unspecified fever cause documented in this encounter Care Teams Transportation Security Screener Relationship Specialty Start Date End Date Km Aj DO [address] [place] [address] PCP - General Family Medicine 10/26/19 documented as of this encounter
--- OUTSIDE RECORDS SUMMARY | 2024-06-30 23:28 | External Medical Summary | Summary of Care ---
Author Name Unknown Organization [facility] Address [address] [facility] [place] [address] Phone [phone] Care Team Providers Care Shipping & Receiving Lead Name Role Phone Km Aj DO Primary Care Provider Reason for Visit * Reason Comments Acute Fever, chills, sever e headaches, nausea, congestion, body aches. Since Friday. Encounter Details Date Type Department Care Team (Late st Contact Info) Description 02/16/2024 10:00 AM EST [facility] [place] [address] Arnol Cardenas CRNP [address] [facility] [place] [address] Viral upper respiratory tract infection*; HTN, goal below 130/80 Allergies Active Allergy Reactions Criticality Noted Date Comments Pollen Other (Please comment) 03/06/2015 Congestion, sinus pressure Ragweed Other (Please comment) 03/06/2015 Congestion, sinus pressure documented as of this encounter (statuses as of 02/16/2024) Medications LOYD MULTIVITAMIN FOR WOMEN PO TABS one tablet daily Active VITAMIN D 400 UNITS PO TABS one tablet daily Active Cyanocobalamin (VITAMIN B12) 100 MCG TABS Take 1 Tablet by mouth in the morning. Active Troy-3-6-9 CAPS Take 1 Cap by mouth every [...] Tablet by mouth in the morning. 03/28/20 20 Active Xiidra 5 % Ophthalmic Solution (Lifitegrast) Instill 5 Drops into eye 2 times a day. 05/30/19 21 Active Fluticasone Propionate 50 MCG/ACT Nasal Suspension (Flonase)Indicat ions:Acute sinusitis USE 2 SPRAYS IN EACH NOSTRIL DAILY 48 g 3 03/03/20 23 Active hydroCHLOROthiaz leonides 50 MG Oral Tablet [...] morning. 90 Tablet 3 10/15/19 24 Active Nirmatrelvir&Rit onavir 300/100 20 x 150 MG & 10 x 100MG Oral Tablet Therapy Pack (Paxlovid)Indica tions:COVID-19 virus infection Take 2 pink tablets of Nirmatrelvir and 1 white tablet of Ritonavir two times a day by mouth. 30 Tablet 01/17/20 24 024 Discontin ued(Medic ation List Clean Up) documented as of this encounter (statuses as of 02/16/2024) Active Problems Problem Noted Date Diagnosed Date [...] as of this encounter (statuses as of 02/16/2024) Resolved Problems Problem Noted Date Diagnosed Date Resolved Date Sepsis due to Escherichia co li with acute organ dysfunction and septic shock 10/26/201901/16 Elevated blood pressure, situational 01/08/2018 10/20/2018 Neoplasm of uncertain behavior of skin 06/22/2014 01/16/2017 History of basal cell carcinoma 06/22/2014 01/16/2017 MALIG HARMONY SKIN LEG 12/21/2004 7 documented as of this encounter (statuses as of 02/16/2024) Immunizations Name Administration Dates Next Due Covid-19 [...] 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 Not on file Not on file documented as of this encounter Last Filed Vital Signs Vital Sign Reading Time Taken Comments Blood Pressure 118/76 02/16/2024 10:02 AM EST Pulse 97 02/16/2024 10:02 AM EST Temperature 38.7 C (101.6 F) 02/16/2024 10:02 AM EST Respiratory Rate - - Oxygen Saturation 99% 02/16/2024 10:02 AM EST Inhaled Oxygen Concentration - - Weight 78.7 kg (173 lb 6.4 oz) 02/16/2024 10:02 AM EST Height - - Body Mass Index 26.37 01/17/2024 9:55 AM EDT documented in this encounter Progress Notes * Arnol Cardenas CRNP - 02/16/2024 10:30 AM EST Images from the original note were not included. Acute URI Family Medicine Visit History of Present Illness CC: Chief Complaint Patient presents with Acute Fever, chills, severe headaches, nausea, congestion, body aches. Since Friday. Eneida Olmstead is a very pleasant 63 year old female with above complaints x 3 days. Symptoms are same over the periods. had covid, she had symptoms so treated with paxlovid with presumed Covid. Previous lung disease: None, hx of tobacco use in past Has tried OTC Tylenol, nyquil with some relief. Last dose 5 am this morning. +fever, t max 102 +chills +sweats +decreased appetite +tolerating fluids +SOLIS +congestion -loss of taste or smell +runny nose +PND -ear pain -sore throat (+ uncomfortable) -cough -productive of mucous -sob -wheezing +nausea -diarrhea -constipation -vomiting +body aches -Rash +Sleep disruption - No sick contact Past Medical History: Diagnosis Date Allergic rhinitis due to other allergen Depressive disorder, not elsewhere classified Depression -pp HTN, goal below 130/80 04/14/2018 Preeclampsia Retinal detachment 2017 bilateral, no trauma Social History Socioeconomic History Marital status: Spouse name: Not on file Number of children: 1 Years of education: Not on file Highest education level: Not on file Occupational History 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: [employer] 248 Comment: [employer] Tobacco Use Smoking status: Former Current packs/day: 0.00 Average packs/day: 2.0 packs/day for 19.0 years (38.0 ttl pk-yrs) Types: Cigarettes Start date: 1977 Quit date: 1996 Years since quittin.8 Smokeless tobacco: Never Tobacco comments: "quit years [...] Stability Do you currently live in a mcfp or have no steady place to sleep [...] - for ages0-17 years): Not on file PMH: Past Medical History: Diagnosis Date Allergic rhinitis [...] Bilateral 2016 no trauma - unknown cause Current Outpatient Medications Medication Sig Dispense Refill Atorvastatin Calcium 40 MG Oral Tablet (Lipitor) Take 1 Tablet by mouth in the morning. 90 Tablet 3 Phentermine HCl 37.5 MG Oral Tablet Take 1 Tablet by mouth daily before breakfast. 90 Tablet 1 hydroCHLOROthiazide 50 MG Oral Tablet (Hydrodiuril) Take 1 Tablet by mouth in the morning. Take 1 tab by mouth in the am.. 90 Tablet 3 metFORMIN HCl ER 500 MG Oral Tablet Extended Release 24 Hour (Glucophage XR) Take 1 Tablet by mouthin the morning. In the morning.. 90 Tablet 3 Fluticasone Propionate 50 MCG/ACT Nasal Suspension (Flonase) USE 2 SPRAYS IN EACH NOSTRIL DAILY 48 g 3 Potassium Chloride Karley ER 20 MEQ Oral Tablet Extended Release Take 2 Tablets by mouth in the morning. Pt takes 40 mEq in am.. Potassium Citrate ER 10 MEQ (1080 MG) Oral Tablet Extended Release (Urocit-K) Take 1 Tablet by mouth in the morning. Xiidra 5 % Ophthalmic Solution (Lifitegrast) Instill 5 Drops into eye 2 times a day. Cyanocobalamin (VITAMIN B12) 100 MCG TABS Take 1 Tablet by mouth in the morning. Troy-3-6-9 CAPS Take 1 Cap by mouth every night at bedtime. Vitamin A 2400 MCG (8000 UT) CAPS Take 1 Cap by mouth daily. LOYD MULTIVITAMIN FOR WOMEN PO TABS one tablet daily VITAMIN D 400 UNITS PO TABS one tablet daily No current facility-administered medications for this visit. Review of patient's allergies indicates: Allergen Reactions Pollen Other (Please comment) Congestion, sinus pressure Ragweed Other (Please comment) Congestion, sinus pressure Most Recent Immunizations Administered Date(s) Administered Covid-19 Ad26, Single Dose (Narciso/J&J) 08/24/2020 Seasonal Influenza Vac., MDV, IM, 0.5 mL (Fluzone) 02/17/2015 Seasonal Influenza, PF, 6 M & above, IM , (FluLaval or Fluzone) 04/03/2018 TD - Tetanus/Diptheria (ADULT) 08/13/2000 TDAP, Age 7 and older, IM (Adacel) 07/10/2010 Review of Systems: Physical Exam BP 118/76 | Pulse 97 | Temp (!) 38.7 C (101.6 F) (Tympanic) | Wt 78.7 kg (173 lb 6.4 oz) | LMP 10/05/2008 | SpO2 99% | BMI 26.37 kg/m | BSA 1.94 m Physical Exam Constitutional: Appearance: Normal appearance. HENT: Head: Normocephalic. Right Ear: Tympanic membrane, ear canal and external ear normal. Left Ear: Tympanic membrane, ear canal and external ear normal. Nose: Congestion present. Right Sinus: No maxillary sinus tenderness or frontal sinus tenderness. Left Sinus: No maxillary sinus tenderness or frontal sinus tenderness. Mouth/Throat: Pharynx: No posterior oropharyngeal erythema. Cardiovascular: Rate and Rhythm: Normal rate and regular rhythm. Pulmonary: Effort: Pulmonary effort is normal. Breath sounds: Normal breath sounds. Musculoskeletal: Cervical back: Neck supple. Skin: General: Skin is warm. Neurological: Mental Status: She is alert and oriented to person, place, and time. Psychiatric: Mood and Affect: Mood normal. Assessment and Plan 1. Viral upper respiratory tract infection R/o covid and flu - INFLUENZA A/B RSV SARS-COV2,PCR; Future - INFLUENZA A/B RSV SARS-COV2,PCR 2. HTN, goal below 130/80 stable Wrap-Up Recommend supportive care including: Humidifier Rest Push fluids Reviewed pathophysiology of viral URI Quarantine until covid results are back Recommend handwashing and covering cough Reviewed signs and symptoms in which to seek medical care I have advised the patient to call our office incase of any worsening or new symptoms. A total of 20 minutes were spent with the patient, more than half in [id number] explanation and discussion of the condition and treatment and answering questions. Arnol Cardenas, MSN, ERNIE [facility] documented in this encounter Nursing Notes * Alie Malhotra, Student - 02/16/2024 10:01 AM EST The patient has been properly identified by confirmation of name and date of . Chief Complaint Patient presents with Acute Fever, chills, severe headaches, nausea, congestion, body aches. Since Friday. documented in this encounter Plan of Treatment Upcoming Encounters Date Type Department Care Team (Late st Contact Info) Description 04/19/2024 9:40 AM EST Office Visit Dermatology [facility] [address] [place] [address] Valentina Gardiner PA-C [address] [place] [address] 04/22/2024 11:00 AM EST Office Visit Podiatry [facility] [address] [facility] [place] [address] Janna Maldonado DPM [address] [place] [address] 05/07/2024 10:30 AM EST Office Visit Orthopaedics [facility] [address] [place] [address] Madan Alonso MD [address] [place] [address] 09/20/2024 11:40 AM EDT Office Visit Family Practice [facility] [address] [place] [address] mK Aj, [address] [place] [address] Pending Results Name Type Priority Associated Diagnoses Date /Time INFLUENZA A/B RSV SARS-COV2,PCR Lab Routine Viral upper respiratory tract infection 02/16/2024 10:51 AM EST Scheduled Orders Name Type Priority Associated Diagnoses Orde r Schedule INFLUENZA A/B RSV SARS-COV2,PCR Lab Routine Viral upper respiratory tract infection Expected: 02/16/2024 (Approximate), Expires: 02/15/2025 Health Maintenance Due Date Last Done Comments [...] Additional history exists Pap Smear 05/19/2026 05/19/2023, 2 12/2019, 01/28/2017, Additional history exists Albumin/Creatinine Ratio [...] as of this encounter Visit Diagnoses Diagnosis Viral upper respiratory tract infection- Primary Acute upper respiratory infections of unspecified site HTN, goal below 130/80 Unspecified essential hypertension documented in this encounter Care Teams Shipping & Receiving Lead Relationship Specialty Start Date End Date Km Aj DO [address] [place] [address] PCP - General Family Medicine 10/26/19 documented as of this encounter
--- OUTSIDE RECORDS SUMMARY | 2024-06-30 23:28 | External Medical Summary ---
Author Name Unknown Address Unknown Organization [facility] [address] [place] [address] Laboratory Report Ordering Provider Test Date Status ERNESTO MEDINA 02/16/2024 10:51:58 Final Observation Date Value Abnormality Reference (Units ) Status SARS Coronavirus 2 02/16/2024 10:51:58 Negative N egative Final No SARS-CoV2 Coronavirus RNA detected by PCR (amplified probe).
This express test was developed and its performance characteristics determined by [facility]. It has not been cleared or approved [...] SARS-CoV-2 diagnosis, surveillance, and travel within the [place] and to most countries. Please check with local testing authorities about requirements before travel.

The validation of bronchial specimens, tracheal aspirates, and sputum for this assay was developed and performance characteristics determined by [facility]. The validation of alternate specimen types has not been cleared or approved by the U.S. Food and Drug Administration (FDA). It has been determined that such clearance is not necessary. Influenza virus A RNA [Prese nce] in Specimen by HI with probe detection 02/16/2024 10:51:58 Negative Negative Final No Influenza A RNA detected by PCR (amplified probe) Influenza virus B RNA [Prese nce] in Specimen by HI with probe detection 02/16/2024 10:51:58 Negative Negative Final No Influenza B RNA detected by PCR (amplified probe) Respiratory syncytial virus RNA [Identifier] in Specimen by HI with probe detection 02/16/2024 10:51:58 Negative Negative Final No Respiratory Syncytial Vir us RNA detected by PCR (amplified probe) Performing Location [facility] [address] [place] [address]
--- OUTSIDE RECORDS SUMMARY | 2024-06-30 23:28 | External Medical Summary | Summary of Care ---
Author Name Unknown Organization [facility] Address [address] [facility] [place] [address] Phone [phone] Care Team Providers Care Cook Restaurant Name Role Phone Km Aj DO Primary Care Provider Reason for Visit * Reason Comments New Med Request Encounter Details Date Type Department Care Team (Late st Contact Info) Description 03/09/2024 Refill Family Practice [facility] [address] [place] [address] Km Aj DO [address] [place] [address] Allergies Active Allergy Reactions Criticality Noted Date Comments Pollen Other (Please comment) 03/06/2015 Congestion, sinus pressure Ragweed Other (Please comment) 03/06/2015 Congestion, sinus pressure documented as of this encounter (statuses as of 03/11/2024) Medications LOYD MULTIVITAMIN FOR WOMEN PO TABS one tablet daily Active VITAMIN D 400 UNITS PO TABS one tablet daily Active Cyanocobalamin (VITAMIN B12) 100 MCG TABS Take 1 Tablet by mouth in the morning. Active [place]-3-6-9 CAPS Take 1 Cap by mouth every [...] as of this encounter (statuses as of 03/11/2024) Active Problems Problem Noted Date Diagnosed Date [...] as of this encounter (statuses as of 03/11/2024) Resolved Problems Problem Noted Date Diagnosed Date Resolved Date Sepsis due to Escherichia co li with acute organ dysfunction and septic shock 10/26/201901/16 Elevated blood pressure, situational 01/08/2018 10/20/2018 Neoplasm of uncertain behavior of skin 06/22/2014 01/16/2017 History of basal cell carcinoma 06/22/2014 01/16/2017 MALIG HARMONY SKIN LEG 12/21/2004 7 documented as of this encounter (statuses as of 03/11/2024) Immunizations Name Administration Dates Next Due Covid-19 [...] No 09/05/2023 Does the household have a [facility] source of income? (Household - for ages [...] encounter Miscellaneous Notes * Telephone Encounter - Vickie Luis [facility] - 03/11/2024 9:19 AM ESTRefused Prescriptions: Disp Refills Rosuvastatin Calcium 40 MG Oral Tablet (Cr* 0 Refused By: Gwendolyn LUIS for Refusal: Course of treatment complete documented in this encounter Plan of Treatment Upcoming Encounters Date Type Department Care Team (Late st Contact Info) Description 04/14/2024 11:40 AM EST Office Visit [facility] [address] [place] [address] Margie Vazquez CRNP [address] [place] [address] 04/19/2024 9:40 AM EST Office Visit Dermatology [facility] [place] [address] [place] [address] Valentina Gardiner PA-C [address] [place] [address] 04/22/2024 11:00 AM EST Office Visit Podiatry [facility] [address] [place] [address] Janna Maldonado DPM [address] [place] [address] 05/07/2024 10:30 AM EST Office Visit Orthopaedics [facility] [address] [place] [address] Madan Alonso MD [address] [place] [address] 09/20/2024 11:40 AM EDT Office Visit [facility] [address] [place] [address] Km Aj DO [address] [place] [address] Health Maintenance Due Date Last Done Comments [...] filedocumented as of this encounter Care Teams Cook Restaurant Relationship Specialty Start Date End Date Km Aj DO [address] [place] [address] PCP - General Family Medicine 10/26/19 documented as of this encounter
--- OUTSIDE RECORDS SUMMARY | 2024-06-30 23:28 | External Medical Summary ---
Author Name Unknown Address Unknown Organization [facility] [address] [place] [address] Laboratory Report Ordering Provider Test Date Status ERNESTO MEDINA 03/08/2024 10:15:06 Final Observation Date Value Abnormality Reference (Units ) Status Color of Urine by Auto 03/08/2024 10:15:06 Yellow Light Yellow, Yellow, Dark Yellow Final Clarity, Urine 03/08/2024 10:15:06 Slightly Cloudy Abnormal Clear Final Glucose [Mass/volume] in Urine by Automated test strip 03/08/2024 10:15:06 Negative Negative (mg/dL) Final Bilirubin.total [Presence] in Urine by Automated test strip 03/08/2024 10:15:06 Negative Negative Final Ketones [Mass/volume] in Urine by Automated test strip 03/08/2024 10:15:06 Negative Negative (mg/dL) Final Specific gravity, Urine 03/08/2024 10:15:06 1.015 1.003-1.030 Final Hemoglobin [Presence] in Urine by Automated test strip 03/08/2024 10:15:06 Negative Negative Final pH, Urine 03/08/2024 10:15:06 6.5 5.0-7.5 (Units) Final Protein [Mass/volume] in Urine by Automated test strip 03/08/2024 10:15:06 Negative Negative (mg/dL) Final Urobilinogen [Mass/volume] in Urine by Automated test strip 03/08/2024 10:15:06 0.2 0.2, 1.0 (mg/dL) Final Nitrite [Presence] in Urine by Automated test strip 03/08/2024 10:15:06 Positive Abnormal Negative Final Leukocyte esterase [Presence] in Urine by Automated test strip 03/08/2024 10:15:06 Moderate Abnormal Negative Final RBC, Urine 03/08/2024 10:15:06 0-2 0-2 (/HPF) Final WBC, Urine 03/08/2024 10:15:06 50+ Abnormal 0-2 (/HPF) Final Bacteria [#/area] in Urine sediment by Microscopy high power field 03/08/2024 10:15:06 >200 Abnormal 0-25 (/HPF) Final CULTURE, URINE - [facility] 03/08/2024 10:15:06 Final Quantitative urine culture t o be performed Performing Location [facility] [address] [place] [address]
--- OUTSIDE RECORDS SUMMARY | 2024-06-30 23:28 | External Medical Summary | Summary of Care ---
Author Name Unknown Organization [facility] Address [address] [place] [address] Phone [phone] Care Team Providers Care Manager Winter Name Role Phone Aj Km Serranojordi Primary Care Provider Encounter Details Date Type Department Care Team (Latest Contact Info) Description 04/19/2024 9:41 AM EST - 04/19/2024 11:59 PM EST Hospital Encounter Radiology Film File [address] [place] [address] Arrived Discharge Disposition: Home - Self Care Allergies Active Allergy Reactions Criticality Noted Date Comments Pollen Other (Please comment) 03/06/2015 Congestion, sinus pressure Ragweed Other (Please comment) 03/06/2015 Congestion, sinus pressure documented as of this encounter (statuses as of 04/20/2024) Medications LOYD MULTIVITAMIN FOR WOMEN PO TABS one tablet daily Active VITAMIN D 400 UNITS PO TABS one tablet daily Active Cyanocobalamin (VITAMIN B12) 100 MCG TABS Take 1 Tablet by mouth in the morning. Active [place]-3-6-9 CAPS Take 1 Cap by mouth every [...] as of this encounter (statuses as of 04/20/2024) Active Problems Problem Noted Date Diagnosed Date [...] as of this encounter (statuses as of 04/20/2024) Resolved Problems Problem Noted Date Diagnosed Date Resolved Date Sepsis due to Escherichia co li with acute organ dysfunction and septic shock 10/26/201901/16 Elevated blood pressure, situational 01/08/2018 10/20/2018 Neoplasm of uncertain behavior of skin 06/22/2014 01/16/2017 History of basal cell carcinoma 06/22/2014 01/16/2017 MALIG HARMONY SKIN LEG 12/21/2004 7 documented as of this encounter (statuses as of 04/20/2024) Immunizations Name Administration Dates Next Due Covid-19 [...] 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 Not on file Not on file documented as of this encounter Plan of Treatment Upcoming Encounters Date Type Department Care Team (Late st Contact Info) Description 04/22/2024 11:00 AM EST Office Visit Podiatry [facility] [address] [place] [address] Janna Maldonado DPM [address] [place] [address] 05/07/2024 10:30 AM EST Office Visit Orthopaedics [facility] [address] [place] [phone] Madan Alonso MD [address] [place] [address] 09/20/2024 11:40 AM EDT Office Visit Family Practice [facility] [address] [place] [address] Km Aj DO [address] [place] [address] 04/20/2025 10:40 AM EST Office Visit Dermatology [facility] [place] [address] [place] [address] Valentina Gardiner PA-C [address] [place] [address] Health Maintenance Due Date Last Done Comments [...] interpreted or resulted by a [facility] or [facility] contracted radiologist. us Valentina Gardiner PA-C RADIOLOGY (RAD GENE RAL) Final Result documented in this encounter Care Teams Manager Winter Relationship Specialty Start Date End Date Km Aj DO [address] [place] [address] PCP - General Family Medicine 10/26/19 documented as of this encounter
[2024-07-01 05:00] LABS: A calco-baum cmplx NotReported Not Detected (NotDetected); Bact fragilis Not Reported Not Detected (NotDetected); Blood Culture Id Panel See PCR Comment (NotDetected); C auris Not Reported Not Detected (NotDetected); CTX-M Resistant Gene Not Detected (NotDetected); Calbicans Not Reported Not Detected (NotDetected); Candida glabrata Not Reported Not Detected (NotDetected); Candida krusei Not Reported Not Detected (NotDetected); Cneoformans/gatti Not Reported Not Detected (NotDetected); Cparapsilosis Not Reported Not Detected (NotDetected); E cloacae compx Not Reported Not Detected (NotDetected); Efaecalis Not Reported Not Detected (NotDetected); Efaecium Not Reported Not Detected (NotDetected); Enterobacterales DETECTED (NotDetected); Enterobacterales Not Reported DETECTED (NotDetected); Escherichia coli Not Reported Not Detected (NotDetected); H influenzae Not Reported Not Detected (NotDetected); IMP Resistant Gene Not Detected (NotDetected); K aerogenes Not Reported Not Detected (NotDetected); KPC Resistant Gene Not Detected (NotDetected); Koxytoca Not Reported Not Detected (NotDetected); Kpneumoniae grp Not Reported DETECTED (NotDetected); Lmonocyt Not Reported Not Detected (NotDetected); N meningitidis Not Reported Not Detected (NotDetected); NDM Resistant Gene Not Detected (NotDetected); OXA 48 Like Resistant Gene Not Detected (NotDetected); P aeruginosa Not Reported Not Detected (NotDetected); Proteus spp Not Reported Not Detected (NotDetected); Salmonella spp Not Reported Not Detected (NotDetected); Staph lugdunensis Not Reported Not Detected (NotDetected); Staph spp. Not Reported Not Detected (NotDetected); Staphaureus Not Reported Not Detected (NotDetected); Staphepi Not Reported Not Detected (NotDetected); Stenmaltophilia Not Reported Not Detected (NotDetected); Strep agal(GrpB) Not Reported Not Detected (NotDetected); Strep pneum Not Reported Not Detected (NotDetected); Strep pyog (GrpA) Not Reported Not Detected (NotDetected); Strep spp Not Reported Not Detected (NotDetected); VIM Resistant Gene Not Detected (NotDetected); mcr-1 Colistin Resistant Gene Not Detected (NotDetected)
[2024-07-01] MEDS: ACETAMINOPHEN 325 MG TAB PO PRN (05:42)
[2024-07-01 05:47] LABS: Klebsiella pneumoniae group DETECTED (NotDetected)
[2024-07-01 06:26] LABS: Hematocrit (blood only) 36.2 % (37.0-47.0); Hemoglobin 12.3 g/dl (12.0-16.0); Mean Corpuscular Hemoglobin 31.6 pg (25.0-34.0); Mean Corpuscular Volume 93.1 fL (80.0-100.0); Mean Platelet Volume 9.7 fL (9.4-12.4); Platelet Count 201 K/uL (130-400); RDW Coefficient of Variation 14.6 % (11.5-14.5); RDW Standard Deviation 49.2 fL (36.4-46.3); Red Blood Count 3.89 M/uL (4.20-5.40); White Blood Count 9.63 K/ul (4.8-10.8)
[2024-07-01 06:51] LABS: Basophils # (auto) 0.02 K/uL (0.00-0.20); Basophils % (auto) 0.2 %; Dohle Bodies 1+; Eosinophils # (auto) 0.01 K/uL (0.00-0.50); Eosinophils % (auto) 0.1 %; Immature Granulocytes # (auto) 0.15 K/uL (0.01-0.20); Immature Granulocytes % (auto) 1.6 %; Lymphocytes # (auto) 0.38 K/uL (1.20-3.40); Lymphocytes % (auto) 3.9 %; Monocytes % (auto) 4.2 %; Neutrophils # (auto) 8.67 K/uL (1.40-6.50); Polychromasia 1+; Toxic Vacuolation 1+
[2024-07-01 06:53] LABS: BUN Creatinine Ratio 19.2 (10-20); Calcium 8.5 mg/dl (8.6-10.3); Creatinine Clr Calc Pharmacy 37.7 ml/min; Potassium 3.7 mmol/L (3.5-5.1)
[2024-07-01] MEDS: CYANOCOBALAMIN (B-12) 500 MCG TABLET PO SCH (07:27)
[2024-07-01] MEDS: CHOLECALCIFEROL 25 MCG (1000 UNITS) TAB PO SCH (07:27)
[2024-07-01] MEDS: ATORVASTATIN 40 MG TAB PO SCH (07:27)
[2024-07-01] MEDS: cefTRIAXone SODIUM 2,000 MG/50 ML BAG IV SCH (07:28)
[2024-07-01] MEDS: FLUTICASONE PROPIONATE NA SPR 16 GM BTL NAE SCH (07:28)
[2024-07-01] MEDS: POTASSIUM CHLORIDE CRTAB 20 MEQ TABCR PO SCH (08:23)
[2024-07-01] MEDS: LACTATED RINGER'S 500 ML IV ONE (08:50)
[2024-07-01] MEDS: LACTATED RINGER'S 1,000 ML IV SCH (09:55)
[2024-07-01] MEDS: ERTAPENEM 1000MG 1,000 MG/10 ML SYR IV SCH (10:18)
--- NOTE | 2024-07-01 10:46 | Urology Progress Note ---
Date of Service July 01, 2024 Assessment & Plan (1) Calculus of proximal right ureter: (2) Complicated UTI (urinary tract infection): (3) SAVANNA (acute kidney injury): Plan: Follow-up obstructing proximal right ureteral calculus, UTI, and sepsis/bacteremia Patient status post emergent right ureteral stent placement on 06/30 Febrile overnight (Tmax 38.2), tachycardic Labs reviewedcreatinine 1.72, WBC 9.63, hemoglobin 12.3 Urine culture prelim with Klebsiella pneumoniae Blood cultures with gram-negative bacilli, bio fire showing Klebsiella and Enterobacterales Continue broad-spectrum antibiotics and narrow per sensitivity data when available Right ureteral stent in place for source control Continue to trend labs Continue supportive care, antibiotics and medical management per hospital medicine service Will arrange outpatient follow-up with our service to set up stone treatment after acute infection has been treated will follow peripherally, please contact our service with any additional questions or concerns Admission and Anticipated Discharge Date Admission Date: June 30, 2024 Subjective Patient seen and examined at bedside this morning. She is awake and eating breakfast. She reports some right flank discomfort with movement. Voiding spontaneously. Fever overnight. Labs reviewedcreatinine 1.72, WBC 9.63, hemoglobin 12.3. Review of Systems Constitutional: as per Subjective / HPI Genitourinary: as per Subjective / HPI Physical Exam Constitutional: well developed and well nourished; no acute distress Respiratory: no respiratory distress and no labored breathing Gastrointestinal (Abdomen): Inspection/Auscultation: abdomen normal to inspection Musculoskeletal: Head/Neck/Chest: normocephalic Neurologic: moves all extremities and awake Psychiatric: Orientation: alert and oriented x 3 Results & Data Vital Signs (Past 12 Hours) Vital Signs Temp Pulse Pulse Pulse Resp BP BP 07/01/24 10:12 104 H 07/01/24 07:43 122 H 07/01/24 07:16 37.7 C H 121 H 17 99/60 L 07/01/24 02:52 38.2 C H 125 H 18 100/59 L Pulse Ox O2 Del Method 07/01/24 10:12 07/01/24 07:43 07/01/24 07:16 94 Room Air 07/01/24 02:52 93 Room Air PG Care Time/CCT Total # of Minutes Spent Total Time Spent with Patient: Total time spent is greater than 50% in coordination of care (as documented) at patient's floor/unit and/or counseling patient: Coding Level of Care Code 33100 SUB INP/OBS CARE 235MIN Diagnoses Calculus of proximal right ureter N20.1 Complicated UTI (urinary tract infection) N39.0 SAVANNA (acute kidney injury) N17.9
[2024-07-01] MEDS ORDERED: HYDROmorphone INJ 0.5 MG/0.5 ML SYR IV PRN (16:13)
[2024-07-01] MEDS ORDERED: oxyCODONE HCL IR 5 MG TAB (IMMEDIATE RELEASE) PO PRN (16:14)
--- NOTE | 2024-07-01 16:17 | Hospitalist Progress Note ---
Date of Service July 01, 2024 Assessment & Plan (1) Severe sepsis: Plan: -as evidenced by tachycardia, fever, and source of stone -Klebsiella bacteremia noted -elevated lactic acid improved with fluids -s/p stent placement -on exam, cap refill present but reduced, appears dry on exam Plan: -additional fluid resuscitation -escalate therapy to ertapenem given lack of response to ceftriaxone -may need bladder US scan if minimal improvement -appreciate urology consult -f/u culture results (2) Hydronephrosis with urinary obstruction due to ureteral calculus: Plan: -s/p stent placement -appreciate urology consult (3) Complicated UTI (urinary tract infection): Plan: -2/2 stone -Klebsiella bacteremia noted (4) SAVANNA (acute kidney injury): Plan: -likely postrenal in setting of obstructive stone -also likely prerenal in setting of sepsis Plan: -monitor output -f/u BMP in AM (5) Hypokalemia: Plan: -resolved (6) HTN (hypertension): Plan: -hold BP meds (7) Hyperlipidemia: Plan: -Continue atorvastatin (8) Prediabetes: Plan I spent a total of 55 minutes in direct patient care, including [id number] time with the patient and/or family, reviewing medical records, ordering and reviewing diagnostic tests, and coordinating care with other healthcare providers. This time includes: history taking, physical examination, medical decision making, counseling, ECG interpretation, imaging interpretation, lab interpretation, orders, and education, excluding time spent in the performance of separately billed services. Admission and Anticipated Discharge Date Admission Date: June 30, 2024 Subjective Patient seen and examined at bedside. present as well. Patient not doing well today. This morning, this provider ordered additional fluids and escalated abx given high grade bacteremia and minimal improvement in clinical scenario. Patient states she has chills, fevers, and is delirious. Denies chest pain, SOB. Review of Systems Review of Systems: CONSTITUTIONAL: fevers, chills, sweats EYES: Patient denies any visual symptoms. EARS, NOSE, AND THROAT: No difficulties with hearing. No symptoms of rhinitis or sore throat. CARDIOVASCULAR: Patient denies chest pains, palpitations, orthopnea and paroxysmal nocturnal dyspnea. RESPIRATORY: No dyspnea on exertion, no wheezing or cough. GI: nausea/vomiting : pain MUSCULOSKELETAL: No myalgias or arthralgias. NEUROLOGIC: No chronic headaches, no seizures. Patient denies numbness, tingling or weakness. PSYCHIATRIC: Patient denies problems with mood disturbance. No problems with anxiety. ENDOCRINE: No excessive urination or excessive thirst. DERMATOLOGIC: Patient denies any rashes or skin changes. Physical Exam Physical Exam: Gen: A&O 3 NAD HEENT: NCAT, EOMI, not icteric. External ears normal. No rhinorrhea. Moist mucous membranes. Neck: Supple, full range of motion, no observable masses, No meningeal sign. Lungs: No Respiratory distress. CV: RRR, no edema. Abdomen: Soft, nondistended, No rebound tenderness. MSK: No joint swelling, no redness. Skin: No rashes, petechiae, lesions. Normal color per patient. Neuro: Normal Gait, Grossly intact. Psych: Appropriate for situation. Results & Data Results & Data Vital Signs (Past 12 Hours) Vital Signs Temp Pulse Pulse Resp BP Pulse Ox O2 Del Method 07/01/24 15:15 36.9 C 07/01/24 12:07 36.7 C 104 H 20 109/71 97 Room Air 07/01/24 12:00 100 H 07/01/24 10:12 104 H 07/01/24 07:43 122 H 07/01/24 07:16 37.7 C H 121 H 17 99/60 L 94 Room Air Laboratory Results -personally reviewed, rapidely uptrending creatinine in setting of obstructive stone, high grade bacteremia with Klebsiella noted in blood cultures and from urine Medications Administered Acetaminophen (Acetaminophen 325 Mg Tab) 650 mg PO Q4H PRN PRN Reason: Pain or Fever Stop: 07/30/24 16:54 Last Admin: 07/01/24 05:42 Dose: 650 mg Documented By: CARLOS MANUEL Artificial Tears (Artificial Tears) 1 - 5 drops OP BID JEANETTE Stop: 07/30/24 20:59 Last Admin: 07/01/24 07:28 Dose: 1 drops Documented By: Admin: 06/30/24 20:10 Dose: Not Given Documented By: CARLOS MANUEL Atorvastatin Calcium (Atorvastatin 40 Mg Tab) 40 mg PO DAILY JEANETTE Stop: 07/31/24 08:59 Last Admin: 07/01/24 07:27 Dose: 40 mg Documented By: BAKARI Cyanocobalamin (Cyanocobalamin (B-12) 500 Mcg Tablet) 1,000 mcg PO QAM JEANETTE Stop: 07/31/24 08:59 Last Admin: 07/01/24 07:27 Dose: 1,000 mcg Documented By: BAKARI Diatrizoate Meglumine (Diatrizoate Meglumine 30% 100ml Vial) 10 ml INSTIL UD PRN PRN Reason: Radiology Use Stop: 07/04/24 15:36 Last Admin: 06/30/24 15:42 Dose: 5 ml Documented By: [id number] Fluticasone Propionate (Fluticasone Propionate Na Spr 16 Gm Btl) 1 sprays JAYLEEN QAM [facility] Stop: 07/31/24 08:59 Last Admin: 07/01/24 07:28 Dose: 1 sprays Documented By: BAKARI Lactated Ringer's (Lr) 1,000 mls @ 125 mls/hr IV .Q8H JEANETTE Stop: 07/02/24 08:44 Last Admin: 07/01/24 09:55 Dose: 125 mls/hr Documented By: BAKARI Ertapenem (Invanz 1000mg) 1,000 mg in 10 mls @ 2 mls/min IV Q24H JEANETTE Stop: 07/11/24 09:29 Last Admin: 07/01/24 10:18 Dose: 2 mls/min Documented By: BAKARI Ondansetron HCl (Ondansetron Inj 2 Mg/Ml 2 Ml Vial) 4 mg IV Q6H PRN PRN Reason: Nausea Stop: 07/30/24 16:54 Last Admin: 06/30/24 20:19 Dose: 4 mg Documented By: CARLOS MANUEL Potassium Chloride (Potassium Chloride Crtab 20 Meq Tabcr) 40 meq PO QAM JEANETTE Stop: 07/31/24 08:59 Last Admin: 07/01/24 08:23 Dose: 40 meq Documented By: BAKARI Tamsulosin HCl (Tamsulosin Hcl 0.4 Mg Cap) 0.4 mg PO HS [facility] Stop: 07/30/24 20:59 Last Admin: 06/30/24 20:10 Dose: 0.4 mg Documented By: CARLOS MANUEL Vitamin D (Cholecalciferol 25 Mcg (1000 Units) Tab) 25 mcg PO QAM JEANETTE Stop: 07/31/24 08:59 Last Admin: 07/01/24 07:27 Dose: 25 mcg Documented By: BAKARI Zolpidem Tartrate (Zolpidem Tartrate 5 Mg Tab) 5 mg PO HS PRN PRN Reason: Insomnia Stop: 07/30/24 19:57 Last Admin: 06/30/24 21:23 Dose: 5 mg Documented By: CARLOS MANUEL (6) HTN (hypertension) Hypertension type: primary hypertension Qualified Code(s): I10 - Essential (primary) hypertension (7) Hyperlipidemia Hyperlipidemia type: mixed hyperlipidemia Qualified Code(s): E78.2 - Mixed hyperlipidemia
[2024-07-01] MEDS ORDERED: ONDANSETRON INJ 2 MG/ML 2 ML VIAL IV PRN (16:18)
[2024-07-01] MEDS: LACTATED RINGER'S 1,000 ML IV ONE (16:26)
[2024-07-01] MEDS: ZOLPIDEM TARTRATE 5 MG TAB PO STA (22:00)
[2024-07-01] MEDS: KETOROLAC TROMETHAMINE 15 MG/ML VIAL IV ONE (23:26)
[2024-07-02] MEDS: KETOROLAC TROMETHAMINE 15 MG/ML VIAL IV ONE (00:14)
[2024-07-02] MEDS: SODIUM CHLORIDE 0.9% 500 ML IV ONE (01:01)
[2024-07-02 06:32] LABS: Hematocrit (blood only) 30.9 % (37.0-47.0); Hemoglobin 10.5 g/dl (12.0-16.0); Mean Corpuscular Hemoglobin 31.2 pg (25.0-34.0); Mean Corpuscular Volume 91.7 fL (80.0-100.0); Mean Platelet Volume 10.1 fL (9.4-12.4); Platelet Count 133 K/uL (130-400); RDW Coefficient of Variation 14.5 % (11.5-14.5); RDW Standard Deviation 48.7 fL (36.4-46.3); Red Blood Count 3.37 M/uL (4.20-5.40); White Blood Count 7.25 K/ul (4.8-10.8)
[2024-07-02 07:03] LABS: Albumin Level 2.6 gm/dl (3.4-5.0); BUN Creatinine Ratio 17.2 (10-20); Bilirubin,Total 0.6 mg/dl (0.2-1.0); Calcium 8.2 mg/dl (8.6-10.3); Creatinine Clr Calc Pharmacy 42.9 ml/min; Globulin 2.6 gm/dl (2.5-4.0); Magnesium 2.1 mg/dl (1.7-2.4); Phosphorus 2.6 mg/dl (2.5-4.9); Potassium 3.5 mmol/L (3.5-5.1); Total Protein 5.2 gm/dl (6.0-8.3)
[2024-07-02] MEDS: cefTRIAXone SODIUM 2,000 MG/50 ML BAG IV SCH (12:06)
--- NOTE | 2024-07-02 12:21 | Ultrasound Report ---
RENAL ULTRASOUND HISTORY: ongoing fevers COMPARISON: CT of 06/30/2024 FINDINGS: Urinary bladder is grossly unremarkable. The known right ureteral stent is not visualized b y ultrasound. There is trace right hydronephrosis, improved. No hydronephrosis on the left. There are few stable calculi inferiorly at the left kidney. There is Doppler flow to both kidneys. Right kidne y measures 16 cm greatest dimension and left kidney measures 13 cm greatest dimension. Right kidney a ppears mildly edematous compared to the left. IMPRESSION: 1. Persistent mild enlargement/edema of the right kidney and trace right hydronephrosis, improved. Fi ndings suggest persistent mild right pyelonephritis. 2. No hydronephrosis on the left. ACT 112: Negative or not required by law. Electronically signed by: Fidel Burris M.D. 07/02/2024 12:19 PM
--- NOTE | 2024-07-02 17:41 | Hospitalist Progress Note ---
Date of Service July 02, 2024 Assessment & Plan (1) Severe sepsis: Plan: -as evidenced by tachycardia, fever, and source of stone -Klebsiella bacteremia noted -elevated lactic acid improved with fluids -s/p stent placement -on exam, cap refill present but reduced, appears dry on exam -Klebsiella sensitive to ceftriaxone Plan: -continue fluid resuscitation -deescalate abx to ceftriaxone, anticipating 10 day course of abx -may need bladder US scan if minimal improvement -appreciate urology consult (2) Hydronephrosis with urinary obstruction due to ureteral calculus: Plan: -s/p stent placement -appreciate urology consult (3) Complicated UTI (urinary tract infection): Plan: -2/2 stone -Klebsiella bacteremia noted (4) SAVANNA (acute kidney injury): Plan: -likely postrenal in setting of obstructive stone -also likely prerenal in setting of sepsis Plan: -monitor output -f/u BMP in AM (5) Hypokalemia: Plan: -resolved (6) HTN (hypertension): Plan: -hold BP meds (7) Hyperlipidemia: Plan: -Continue atorvastatin (8) Prediabetes: Plan I spent a total of 55 minutes in direct patient care, including [id number] time with the patient and/or family, reviewing medical records, ordering and reviewing diagnostic tests, and coordinating care with other healthcare providers. This time includes: history taking, physical examination, medical decision making, counseling, ECG interpretation, imaging interpretation, lab interpretation, orders, and education, excluding time spent in the performance of separately billed services. Admission and Anticipated Discharge Date Admission Date: June 30, 2024 Subjective Patient seen and examined at bedside. Patient doing slightly better today. States she is still having chills. Review of Systems Review of Systems: CONSTITUTIONAL: fevers, chills, sweats EYES: Patient denies any visual symptoms. EARS, NOSE, AND THROAT: No difficulties with hearing. No symptoms of rhinitis or sore throat. CARDIOVASCULAR: Patient denies chest pains, palpitations, orthopnea and paroxysmal nocturnal dyspnea. RESPIRATORY: No dyspnea on exertion, no wheezing or cough. GI: nausea/vomiting : pain MUSCULOSKELETAL: No myalgias or arthralgias. NEUROLOGIC: No chronic headaches, no seizures. Patient denies numbness, tingling or weakness. PSYCHIATRIC: Patient denies problems with mood disturbance. No problems with anxiety. ENDOCRINE: No excessive urination or excessive thirst. DERMATOLOGIC: Patient denies any rashes or skin changes. Physical Exam Physical Exam: Gen: A&O 3 NAD HEENT: NCAT, EOMI, not icteric. External ears normal. No rhinorrhea. Moist mucous membranes. Neck: Supple, full range of motion, no observable masses, No meningeal sign. Lungs: No Respiratory distress. CV: RRR, no edema. Abdomen: Soft, nondistended, No rebound tenderness. MSK: No joint swelling, no redness. Skin: No rashes, petechiae, lesions. Normal color per patient. Neuro: Normal Gait, Grossly intact. Psych: Appropriate for situation. Results & Data Results & Data Vital Signs (Past 12 Hours) Vital Signs Temp Pulse Pulse Resp BP Pulse Ox Pulse Ox 07/02/24 16:39 37.4 C 112 H 20 132/87 97 07/02/24 16:00 97 07/02/24 14:23 100 H 07/02/24 12:01 36.7 C 99 H 18 123/79 97 07/02/24 08:37 36.7 C 90 18 128/80 94 07/02/24 07:00 84 O2 Del Method O2 Del Method 07/02/24 16:39 Room Air 07/02/24 16:00 Room Air 07/02/24 14:23 07/02/24 12:01 Room Air 07/02/24 08:37 Room Air 07/02/24 07:00 Laboratory Results -personally reviewed, creatinine improving to 1.51 with fluids Diagnostic Findings Renal Ultrasound 07/02/24 08:17 RENAL ULTRASOUND HISTORY: ongoing fevers COMPARISON: CT of 06/30/2024 FINDINGS: Urinary bladder is grossly unremarkable. The known right ureteral stent is not visualized by ultrasound. There is trace right hydronephrosis, improved. No hydronephrosis on the left. There are few stable calculi inferiorly at the left kidney. There is Doppler flow to both kidneys. Right kidney measures 16 cm greatest dimension and left kidney measures 13 cm greatest dimension. Right kidney appears mildly edematous compared to the left. IMPRESSION: 1. Persistent mild enlargement/edema of the right kidney and trace right hydronephrosis, improved. Findings suggest persistent mild right pyelonephritis. 2. No hydronephrosis on the left. ACT 112: Negative or not required by law. Electronically signed by: Fidel Burris M.D. 07/02/2024 12:19 PM -personally reviewed, continues to have mild hydronephrosis of right kidney with edema Medications Administered Acetaminophen (Acetaminophen 325 Mg Tab) 650 mg PO Q4H PRN PRN Reason: Pain or Fever Stop: 07/30/24 16:54 Last Admin: 07/02/24 16:23 Dose: 650 mg Documented By: Admin: 07/02/24 08:32 Dose: 650 mg Documented By: Admin: 07/01/24 22:06 Dose: 650 mg Documented By: Admin: 07/01/24 16:33 Dose: 650 mg Documented By: Admin: 07/01/24 05:42 Dose: 650 mg Documented By: CARLOS MANUEL Artificial Tears (Artificial Tears) 1 - 5 drops OP BID JEANETTE Stop: 07/30/24 20:59 Last Admin: 07/02/24 08:34 Dose: 1 drops Documented By: Admin: 07/01/24 22:00 Dose: 1 drops Documented By: Admin: 07/01/24 07:28 Dose: 1 drops Documented By: Admin: 06/30/24 20:10 Dose: Not Given Documented By: CARLOS MANUEL Atorvastatin Calcium (Atorvastatin 40 Mg Tab) 40 mg PO DAILY JEANETTE Stop: 07/31/24 08:59 Last Admin: 07/02/24 08:33 Dose: 40 mg Documented By: Admin: 07/01/24 07:27 Dose: 40 mg Documented By: BAKARI Cyanocobalamin (Cyanocobalamin (B-12) 500 Mcg Tablet) 1,000 mcg PO QAM JEANETTE Stop: 07/31/24 08:59 Last Admin: 07/02/24 08:33 Dose: 1,000 mcg Documented By: Admin: 07/01/24 07:27 Dose: 1,000 mcg Documented By: BAKARI Diatrizoate Meglumine (Diatrizoate Meglumine 30% 100ml Vial) 10 ml INSTIL UD PRN PRN Reason: Radiology Use Stop: 07/04/24 15:36 Last Admin: 06/30/24 15:42 Dose: 5 ml Documented By: [id number] Fluticasone Propionate (Fluticasone Propionate Na Spr 16 Gm Btl) 1 sprays JAYLEEN QAM JEANETTE Stop: 07/31/24 08:59 Last Admin: 07/02/24 08:34 Dose: Not Given Documented By: Admin: 07/01/24 07:28 Dose: 1 sprays Documented By: BAKARI Lactated Ringer's (Lr) 1,000 mls @ 125 mls/hr IV .Q8H JEANETTE Stop: 07/03/24 08:44 Last Admin: 07/02/24 17:22 Dose: 125 mls/hr Documented By: Infusion: 07/02/24 17:14 Dose: Infused Documented By: Admin: 07/02/24 09:14 Dose: 125 mls/hr Documented By: Infusion: 07/02/24 09:14 Dose: Infused Documented By: Admin: 07/02/24 01:55 Dose: 125 mls/hr Documented By: Infusion: 07/02/24 01:55 Dose: Infused Documented By: Admin: 07/01/24 18:23 Dose: 125 mls/hr Documented By: Infusion: 07/01/24 17:55 Dose: Infused Documented By: Admin: 07/01/24 09:55 Dose: 125 mls/hr Documented By: BAKARI Ceftriaxone Sodium (Rocephin) 2,000 mg in 50 mls @ 100 mls/hr IV Q24H JEANETTE Stop: 07/16/24 09:59 Last Infusion: 07/02/24 12:37 Dose: Infused Documented By: Admin: 07/02/24 12:06 Dose: 100 mls/hr Documented By: LETHA Ondansetron HCl (Ondansetron Inj 2 Mg/Ml 2 Ml Vial) 4 mg IV Q6H PRN PRN Reason: Nausea Stop: 07/30/24 16:54 Last Admin: 07/02/24 16:23 Dose: 4 mg Documented By: Admin: 07/01/24 16:33 Dose: 4 mg Documented By: Admin: 06/30/24 20:19 Dose: 4 mg Documented By: CARLOS MANUEL Potassium Chloride (Potassium Chloride Crtab 20 Meq Tabcr) 40 meq PO QAM JEANETTE Stop: 07/31/24 08:59 Last Admin: 07/02/24 08:33 Dose: 40 meq Documented By: Admin: 07/01/24 08:23 Dose: 40 meq Documented By: KAB Tamsulosin HCl (Tamsulosin Hcl 0.4 Mg Cap) 0.4 mg PO HS JEANETTE Stop: 07/30/24 20:59 Last Admin: 07/01/24 22:01 Dose: 0.4 mg Documented By: Admin: 06/30/24 20:10 Dose: 0.4 mg Documented By: CARLOS MANUEL Vitamin D (Cholecalciferol 25 Mcg (1000 Units) Tab) 25 mcg PO QAM JEANETTE Stop: 07/31/24 08:59 Last Admin: 07/02/24 08:33 Dose: 25 mcg Documented By: Admin: 07/01/24 07:27 Dose: 25 mcg Documented By: BAKARI (6) HTN (hypertension) Hypertension type: primary hypertension Qualified Code(s): I10 - Essential (primary) hypertension (7) Hyperlipidemia Hyperlipidemia type: mixed hyperlipidemia Qualified Code(s): E78.2 - Mixed hyperlipidemia
[2024-07-02] MEDS: ZOLPIDEM TARTRATE 5 MG TAB PO PRN (21:22)
[2024-07-03 07:53] LABS: Hematocrit (blood only) 30.3 % (37.0-47.0); Hemoglobin 10.4 g/dl (12.0-16.0); Mean Corpuscular Hemoglobin 30.8 pg (25.0-34.0); Mean Corpuscular Hgb Conc 34.3 g/dL (32.0-36.0); Mean Corpuscular Volume 89.6 fL (80.0-100.0); Mean Platelet Volume 9.8 fL (9.4-12.4); Platelet Count 136 K/uL (130-400); RDW Coefficient of Variation 14.5 % (11.5-14.5); RDW Standard Deviation 47.4 fL (36.4-46.3); Red Blood Count 3.38 M/uL (4.20-5.40); White Blood Count 7.66 K/ul (4.8-10.8)
[2024-07-03 08:12] LABS: Albumin Level 2.6 gm/dl (3.4-5.0); BUN Creatinine Ratio 16.3 (10-20); Bilirubin,Total 0.6 mg/dl (0.2-1.0); Creatinine Clr Calc Pharmacy 52.4 ml/min; Globulin 2.6 gm/dl (2.5-4.0); Potassium 3.5 mmol/L (3.5-5.1); Total Protein 5.2 gm/dl (6.0-8.3)
--- NOTE | 2024-07-03 13:55 | Hospitalist Progress Note ---
Date of Service July 03, 2024 Assessment & Plan (1) Severe sepsis: Plan: -as evidenced by tachycardia, fever, and source of stone -Klebsiella bacteremia noted -elevated lactic acid improved with fluids -s/p stent placement -on exam, cap refill present but reduced, appears dry on exam -Klebsiella sensitive to ceftriaxone Plan: -continue fluid resuscitation at lower rate in prep of discharge tomorrow -continue ceftriaxone, will discharge with 10 total days of therapy -appreciate urology consult (2) Hydronephrosis with urinary obstruction due to ureteral calculus: Plan: -s/p stent placement -appreciate urology consult (3) Complicated UTI (urinary tract infection): Plan: -2/2 stone -Klebsiella bacteremia noted (4) SAVANNA (acute kidney injury): Plan: -likely postrenal in setting of obstructive stone -also likely prerenal in setting of sepsis -improving (5) Hypokalemia: Plan: -resolved (6) HTN (hypertension): Plan: -hold BP meds (7) Hyperlipidemia: Plan: -Continue atorvastatin (8) Prediabetes: Plan I spent a total of 50 minutes in direct patient care, including [id number] time with the patient and/or family, reviewing medical records, ordering and reviewing diagnostic tests, and coordinating care with other healthcare providers. This time includes: history taking, physical examination, medical decision making, counseling, ECG interpretation, imaging interpretation, lab interpretation, orders, and education, excluding time spent in the performance of separately billed services. Admission and Anticipated Discharge Date Admission Date: June 30, 2024 Subjective Patient seen and examined at bedside. patient feeling better today, still having some chills but for the most part improved. Wants to be more active today Review of Systems Review of Systems: CONSTITUTIONAL: fevers, chills, sweats, all improving EYES: Patient denies any visual symptoms. EARS, NOSE, AND THROAT: No difficulties with hearing. No symptoms of rhinitis or sore throat. CARDIOVASCULAR: Patient denies chest pains, palpitations, orthopnea and paroxysmal nocturnal dyspnea. RESPIRATORY: No dyspnea on exertion, no wheezing or cough. GI: nausea/vomiting : pain MUSCULOSKELETAL: No myalgias or arthralgias. NEUROLOGIC: No chronic headaches, no seizures. Patient denies numbness, tingling or weakness. PSYCHIATRIC: Patient denies problems with mood disturbance. No problems with anxiety. ENDOCRINE: No excessive urination or excessive thirst. DERMATOLOGIC: Patient denies any rashes or skin changes. Physical Exam Physical Exam: Gen: A&O 3 NAD HEENT: NCAT, EOMI, not icteric. External ears normal. No rhinorrhea. Moist mucous membranes. Neck: Supple, full range of motion, no observable masses, No meningeal sign. Lungs: No Respiratory distress. CV: RRR, no edema. Abdomen: Soft, nondistended, No rebound tenderness. MSK: No joint swelling, no redness. Skin: No rashes, petechiae, lesions. Normal color per patient. Neuro: Normal Gait, Grossly intact. Psych: Appropriate for situation. Results & Data Results & Data Vital Signs (Past 12 Hours) Vital Signs Temp Pulse Pulse Pulse Resp BP Pulse Ox 07/03/24 12:01 36.6 C 80 18 114/74 96 07/03/24 07:25 37.6 C H 93 H 16 130/77 94 07/03/24 07:00 91 H 07/03/24 03:06 36.9 C 105 H 18 122/76 90 O2 Del Method 07/03/24 12:01 Room Air 07/03/24 07:25 Room Air 07/03/24 07:00 07/03/24 03:06 Room Air Laboratory Results -personally reviewed, WBC stable, tachycardia and fever curves overall trending down Medications Administered Acetaminophen (Acetaminophen 325 Mg Tab) 650 mg PO Q4H PRN PRN Reason: Pain or Fever Stop: 07/30/24 16:54 Last Admin: 07/03/24 07:40 Dose: 650 mg Documented By: Admin: 07/02/24 16:23 Dose: 650 mg Documented By: Admin: 07/02/24 08:32 Dose: 650 mg Documented By: Admin: 07/01/24 22:06 Dose: 650 mg Documented By: Admin: 07/01/24 16:33 Dose: 650 mg Documented By: Admin: 07/01/24 05:42 Dose: 650 mg Documented By: CARLOS MANUEL Artificial Tears (Artificial Tears) 1 - 5 drops OP BID JEANETTE Stop: 07/30/24 20:59 Last Admin: 07/03/24 09:02 Dose: 1 drops Documented By: Admin: 07/02/24 21:20 Dose: Not Given Documented By: Admin: 07/02/24 08:34 Dose: 1 drops Documented By: Admin: 07/01/24 22:00 Dose: 1 drops Documented By: Admin: 07/01/24 07:28 Dose: 1 drops Documented By: Admin: 06/30/24 20:10 Dose: Not Given Documented By: CARLOS MANUEL Atorvastatin Calcium (Atorvastatin 40 Mg Tab) 40 mg PO DAILY [facility] Stop: 07/31/24 08:59 Last Admin: 07/03/24 09:02 Dose: 40 mg Documented By: Admin: 07/02/24 08:33 Dose: 40 mg Documented By: Admin: 07/01/24 07:27 Dose: 40 mg Documented By: BAKARI Cyanocobalamin (Cyanocobalamin (B-12) 500 Mcg Tablet) 1,000 mcg PO QAM [facility] Stop: 07/31/24 08:59 Last Admin: 07/03/24 09:02 Dose: 1,000 mcg Documented By: Admin: 07/02/24 08:33 Dose: 1,000 mcg Documented By: Admin: 07/01/24 07:27 Dose: 1,000 mcg Documented By: BAKARI Diatrizoate Meglumine (Diatrizoate Meglumine 30% 100ml Vial) 10 ml INSTIL UD PRN PRN Reason: Radiology Use Stop: 07/04/24 15:36 Last Admin: 06/30/24 15:42 Dose: 5 ml Documented By: [id number] Fluticasone Propionate (Fluticasone Propionate Na Spr 16 Gm Btl) 1 sprays JAYLEEN QAM [facility] Stop: 07/31/24 08:59 Last Admin: 07/03/24 09:02 Dose: Not Given Documented By: Admin: 07/02/24 08:34 Dose: Not Given Documented By: Admin: 07/01/24 07:28 Dose: 1 sprays Documented By: BAKARI Ceftriaxone Sodium (Rocephin) 2,000 mg in 50 mls @ 100 mls/hr IV Q24H [facility] Stop: 07/16/24 09:59 Last Infusion: 07/03/24 09:46 Dose: Infused Documented By: Admin: 07/03/24 09:09 Dose: 100 mls/hr Documented By: Infusion: 07/02/24 12:37 Dose: Infused Documented By: Admin: 07/02/24 12:06 Dose: 100 mls/hr Documented By: LETHA Ondansetron HCl (Ondansetron Inj 2 Mg/Ml 2 Ml Vial) 4 mg IV Q6H PRN PRN Reason: Nausea Stop: 07/30/24 16:54 Last Admin: 07/02/24 16:23 Dose: 4 mg Documented By: Admin: 07/01/24 16:33 Dose: 4 mg Documented By: Admin: 06/30/24 20:19 Dose: 4 mg Documented By: CARLOS MANUEL Potassium Chloride (Potassium Chloride Crtab 20 Meq Tabcr) 40 meq PO QAM JEANETTE Stop: 07/31/24 08:59 Last Admin: 07/03/24 09:05 Dose: 40 meq Documented By: Admin: 07/02/24 08:33 Dose: 40 meq Documented By: Admin: 07/01/24 08:23 Dose: 40 meq Documented By: BAKARI Tamsulosin HCl (Tamsulosin Hcl 0.4 Mg Cap) 0.4 mg PO HS JEANETTE Stop: 07/30/24 20:59 Last Admin: 07/02/24 21:19 Dose: 0.4 mg Documented By: Admin: 07/01/24 22:01 Dose: 0.4 mg Documented By: Admin: 06/30/24 20:10 Dose: 0.4 mg Documented By: CARLOS MANUEL Vitamin D (Cholecalciferol 25 Mcg (1000 Units) Tab) 25 mcg PO QAM JEANETTE Stop: 07/31/24 08:59 Last Admin: 07/03/24 09:02 Dose: 25 mcg Documented By: Admin: 07/02/24 08:33 Dose: 25 mcg Documented By: Admin: 07/01/24 07:27 Dose: 25 mcg Documented By: BAKARI Zolpidem Tartrate (Zolpidem Tartrate 5 Mg Tab) 5 mg PO HS PRN PRN Reason: Sleep Stop: 08/01/24 17:35 Last Admin: 07/02/24 21:22 Dose: 5 mg Documented By: LIYA (6) HTN (hypertension) Hypertension type: primary hypertension Qualified Code(s): I10 - Essential (primary) hypertension (7) Hyperlipidemia Hyperlipidemia type: mixed hyperlipidemia Qualified Code(s): E78.2 - Mixed hyperlipidemia
[2024-07-03] MEDS: LACTATED RINGER'S 1,000 ML IV SCH (15:14)
[2024-07-03] MEDS: LACTATED RINGER'S 500 ML IV ONE (17:35)
[2024-07-03] MEDS: OPTIRAY 320 100ml IV ONE (18:00)
--- NOTE | 2024-07-03 19:40 | CT Scan Report ---
EXAMINATION: CT of the abdomen and pelvis performed without contrast TECHNIQUE: Helical CT images from the lung bases through the symphysis pubis were obtained without contrast. Coronal and sagittal reformatted images were generated at a workstation for further assessment. Dose reduction techniques were achieved by using automatic exposure control and/or adjustment of mA and/or kV according to patient size and/or use of iterative reconstruction technique. COMPARISON: 06/30/2024 HISTORY: Ureteral stone. FINDINGS: LOWER CHEST: There is a moderate right pleural effusion which is increased, and a new small left pleural effusion. There is subjacent compressive atelectasis. ABDOMEN: There is a tiny cyst in the left hepatic lobe. Otherwise the liver, gallbladder, spleen, pancreas, and adrenal glands are unremarkable. There are a few small calculi at the inferior left kidney. No left hydronephrosis. There continues to be swelling of the right kidney. A new right-sided nephroureteral stent has been placed. The proximal portion of the stent is at the ureteropelvic junction just proximal to the stone. The 6 mm stone at the right UPJ remains in similar position. Slight right hydronephrosis, which is decreased. PELVIS: Urinary bladder is nondistended. No calculi seen in the urinary bladder. Small amount of air in the bladder, likely related to catheterization. Uterus and adnexal regions are grossly unremarkable. There is trace low pelvic free fluid. No free air or abscess. There is mild colonic diverticulosis. No acute diverticulitis. No bowel inflammation or obstruction. No pathologic lymphadenopathy. OSSEOUS STRUCTURES: No acute osseous findings. IMPRESSION: A right nephroureteral stent has been placed, as above. The 6 mm stone at the right UPJ remains. Slight right hydronephrosis, is decreased. There continues to be swelling of the right kidney, which may be due to ongoing pyelonephritis which was better appreciated on the prior contrast-enhanced exam. Increased pleural effusions, which are moderate on the right and small on the left. Electronically signed by Michael Aj 07-03-2024 7:40 PM
[2024-07-04 07:20] LABS: Hematocrit (blood only) 28.5 % (37.0-47.0); Hemoglobin 9.9 g/dl (12.0-16.0); Mean Corpuscular Hemoglobin 30.8 pg (25.0-34.0); Mean Corpuscular Hgb Conc 34.7 g/dL (32.0-36.0); Mean Corpuscular Volume 88.8 fL (80.0-100.0); Platelet Count 145 K/uL (130-400); RDW Coefficient of Variation 14.6 % (11.5-14.5); RDW Standard Deviation 47.6 fL (36.4-46.3); Red Blood Count 3.21 M/uL (4.20-5.40); White Blood Count 8.23 K/ul (4.8-10.8)
[2024-07-04 07:40] LABS: Albumin Level 2.5 gm/dl (3.4-5.0); BUN Creatinine Ratio 13.7 (10-20); Bilirubin,Total 0.5 mg/dl (0.2-1.0); Calcium 7.9 mg/dl (8.6-10.3); Creatinine Clr Calc Pharmacy 63.1 ml/min; Globulin 2.6 gm/dl (2.5-4.0); Potassium 3.3 mmol/L (3.5-5.1); Total Protein 5.1 gm/dl (6.0-8.3)
--- NOTE | 2024-07-04 17:58 | Hospitalist Progress Note ---
Date of Service July 04, 2024 Assessment & Plan (1) Severe sepsis: Plan: -as evidenced by tachycardia, fever, and source of stone -Klebsiella bacteremia noted -elevated lactic acid improved with fluids -s/p stent placement -on exam, cap refill present but reduced, appears dry on exam -Klebsiella sensitive to ceftriaxone Plan: -stop fluids -continue ceftriaxone, will discharge with 10 total days of therapy -appreciate urology consult -f/u repeat cultures (2) Hydronephrosis with urinary obstruction due to ureteral calculus: Plan: -s/p stent placement -appreciate urology consult (3) Complicated UTI (urinary tract infection): Plan: -2/2 stone -Klebsiella bacteremia noted (4) SAVANNA (acute kidney injury): Plan: -likely postrenal in setting of obstructive stone -also likely prerenal in setting of sepsis -resolved (5) Hypokalemia: Plan: -resolved (6) HTN (hypertension): Plan: -hold BP meds (7) Hyperlipidemia: Plan: -Continue atorvastatin (8) Prediabetes: Plan I spent a total of 45 minutes in direct patient care, including [id number] time with the patient and/or family, reviewing medical records, ordering and reviewing diagnostic tests, and coordinating care with other healthcare providers. This time includes: history taking, physical examination, medical decision making, counseling, ECG interpretation, imaging interpretation, lab interpretation, orders, and education, excluding time spent in the performance of separately billed services. Admission and Anticipated Discharge Date Admission Date: June 30, 2024 Subjective Patient seen and examined at bedside. Patient feeling about the same as yesterday. Discussed plan for 1 more day in the hospital given still tachycardic and with a fever. Hope for discharge tomorrow. She is appreciative of the update. Review of Systems Review of Systems: CONSTITUTIONAL: fevers, chills, sweats, all improving EYES: Patient denies any visual symptoms. EARS, NOSE, AND THROAT: No difficulties with hearing. No symptoms of rhinitis or sore throat. CARDIOVASCULAR: Patient denies chest pains, palpitations, orthopnea and paroxysmal nocturnal dyspnea. RESPIRATORY: No dyspnea on exertion, no wheezing or cough. GI: nausea/vomiting : pain MUSCULOSKELETAL: No myalgias or arthralgias. NEUROLOGIC: No chronic headaches, no seizures. Patient denies numbness, tingling or weakness. PSYCHIATRIC: Patient denies problems with mood disturbance. No problems with anxiety. ENDOCRINE: No excessive urination or excessive thirst. DERMATOLOGIC: Patient denies any rashes or skin changes. Physical Exam Physical Exam: Gen: A&O 3 NAD HEENT: NCAT, EOMI, not icteric. External ears normal. No rhinorrhea. Moist mucous membranes. Neck: Supple, full range of motion, no observable masses, No meningeal sign. Lungs: No Respiratory distress. CV: RRR, no edema. Abdomen: Soft, nondistended, No rebound tenderness. MSK: No joint swelling, no redness. Skin: No rashes, petechiae, lesions. Normal color per patient. Neuro: Normal Gait, Grossly intact. Psych: Appropriate for situation. Results & Data Results & Data Vital Signs (Past 12 Hours) Vital Signs Temp Pulse Pulse Pulse Resp BP BP 07/04/24 17:49 37.1 C 91 H 18 149/83 H 07/04/24 14:27 37.4 C 07/04/24 14:00 89 07/04/24 11:27 36.6 C 87 18 132/84 07/04/24 10:41 100 H 07/04/24 08:01 36.7 C 77 18 130/85 Pulse Ox O2 Del Method 07/04/24 17:49 96 Room Air 07/04/24 14:27 07/04/24 14:00 07/04/24 11:27 96 Room Air 07/04/24 10:41 07/04/24 08:01 97 Room Air Laboratory Results -personally reviewed, no noted leukocytosis, creatinine has returned close to baseline Medications Administered Acetaminophen (Acetaminophen 325 Mg Tab) 650 mg PO Q4H PRN PRN Reason: Pain or Fever Stop: 07/30/24 16:54 Last Admin: 07/04/24 14:21 Dose: 650 mg Documented By: Admin: 07/04/24 08:38 Dose: 650 mg Documented By: Admin: 07/04/24 02:31 Dose: 650 mg Documented By: Admin: 07/03/24 16:25 Dose: 650 mg Documented By: Admin: 07/03/24 07:40 Dose: 650 mg Documented By: Admin: 07/02/24 16:23 Dose: 650 mg Documented By: Admin: 07/02/24 08:32 Dose: 650 mg Documented By: Admin: 07/01/24 22:06 Dose: 650 mg Documented By: Admin: 07/01/24 16:33 Dose: 650 mg Documented By: Admin: 07/01/24 05:42 Dose: 650 mg Documented By: CARLOS MANUEL Artificial Tears (Artificial Tears) 1 - 5 drops OP BID JEANETTE Stop: 07/30/24 20:59 Last Admin: 07/04/24 08:40 Dose: 1 drops Documented By: Admin: 07/03/24 21:15 Dose: 1 drops Documented By: Admin: 07/03/24 09:02 Dose: 1 drops Documented By: Admin: 07/02/24 21:20 Dose: Not Given Documented By: Admin: 07/02/24 08:34 Dose: 1 drops Documented By: Admin: 07/01/24 22:00 Dose: 1 drops Documented By: Admin: 07/01/24 07:28 Dose: 1 drops Documented By: Admin: 06/30/24 20:10 Dose: Not Given Documented By: CARLOS MANUEL Atorvastatin Calcium (Atorvastatin 40 Mg Tab) 40 mg PO DAILY JEANETTE Stop: 07/31/24 08:59 Last Admin: 07/04/24 08:39 Dose: 40 mg Documented By: Admin: 07/03/24 09:02 Dose: 40 mg Documented By: Admin: 07/02/24 08:33 Dose: 40 mg Documented By: Admin: 07/01/24 07:27 Dose: 40 mg Documented By: BAKARI Cyanocobalamin (Cyanocobalamin (B-12) 500 Mcg Tablet) 1,000 mcg PO QAM JEANETTE Stop: 07/31/24 08:59 Last Admin: 07/04/24 08:39 Dose: 1,000 mcg Documented By: Admin: 07/03/24 09:02 Dose: 1,000 mcg Documented By: Admin: 07/02/24 08:33 Dose: 1,000 mcg Documented By: Admin: 07/01/24 07:27 Dose: 1,000 mcg Documented By: BAKARI Fluticasone Propionate (Fluticasone Propionate Na Spr 16 Gm Btl) 1 sprays JAYLEEN QAM JEANETTE Stop: 07/31/24 08:59 Last Admin: 07/04/24 08:40 Dose: 1 sprays Documented By: Admin: 07/03/24 09:02 Dose: Not Given Documented By: Admin: 07/02/24 08:34 Dose: Not Given Documented By: Admin: 07/01/24 07:28 Dose: 1 sprays Documented By: BAKARI Ceftriaxone Sodium (Rocephin) 2,000 mg in 50 mls @ 100 mls/hr IV Q24H JEANETTE Stop: 07/16/24 09:59 Last Infusion: 07/04/24 11:39 Dose: Infused Documented By: Admin: 07/04/24 10:59 Dose: 100 mls/hr Documented By: Infusion: 07/03/24 09:46 Dose: Infused Documented By: Admin: 07/03/24 09:09 Dose: 100 mls/hr Documented By: Infusion: 07/02/24 12:37 Dose: Infused Documented By: Admin: 07/02/24 12:06 Dose: 100 mls/hr Documented By: LETHA Ondansetron HCl (Ondansetron Inj 2 Mg/Ml 2 Ml Vial) 4 mg IV Q6H PRN PRN Reason: Nausea Stop: 07/30/24 16:54 Last Admin: 07/04/24 02:31 Dose: 4 mg Documented By: Admin: 07/02/24 16:23 Dose: 4 mg Documented By: Admin: 07/01/24 16:33 Dose: 4 mg Documented By: Admin: 06/30/24 20:19 Dose: 4 mg Documented By: CARLOS MANUEL Potassium Chloride (Potassium Chloride Crtab 20 Meq Tabcr) 40 meq PO QAM JEANETTE Stop: 07/31/24 08:59 Last Admin: 07/04/24 08:39 Dose: 40 meq Documented By: Admin: 07/03/24 09:05 Dose: 40 meq Documented By: Admin: 07/02/24 08:33 Dose: 40 meq Documented By: Admin: 07/01/24 08:23 Dose: 40 meq Documented By: BAKARI Tamsulosin HCl (Tamsulosin Hcl 0.4 Mg Cap) 0.4 mg PO HS JEANETTE Stop: 07/30/24 20:59 Last Admin: 07/03/24 21:17 Dose: 0.4 mg Documented By: Admin: 07/02/24 21:19 Dose: 0.4 mg Documented By: Admin: 07/01/24 22:01 Dose: 0.4 mg Documented By: Admin: 06/30/24 20:10 Dose: 0.4 mg Documented By: CARLOS MANUEL Vitamin D (Cholecalciferol 25 Mcg (1000 Units) Tab) 25 mcg PO QAM JEANETTE Stop: 07/31/24 08:59 Last Admin: 07/04/24 08:39 Dose: 25 mcg Documented By: Admin: 07/03/24 09:02 Dose: 25 mcg Documented By: Admin: 07/02/24 08:33 Dose: 25 mcg Documented By: Admin: 07/01/24 07:27 Dose: 25 mcg Documented By: BAKARI Zolpidem Tartrate (Zolpidem Tartrate 5 Mg Tab) 5 mg PO HS PRN PRN Reason: Sleep Stop: 08/01/24 17:35 Last Admin: 07/03/24 21:15 Dose: 5 mg Documented By: Admin: 07/02/24 21:22 Dose: 5 mg Documented By: LIYA (6) HTN (hypertension) Hypertension type: primary hypertension Qualified Code(s): I10 - Essential (primary) hypertension (7) Hyperlipidemia Hyperlipidemia type: mixed hyperlipidemia Qualified Code(s): E78.2 - Mixed hyperlipidemia
[2024-07-04] MEDS ORDERED: oxyCODONE HCL IR 5 MG TAB (IMMEDIATE RELEASE) PO PRN (18:15)
[2024-07-04] MEDS: KETOROLAC TROMETHAMINE 15 MG/ML VIAL IV ONE (20:13)
[2024-07-05 06:30] LABS: Hematocrit (blood only) 29.7 % (37.0-47.0); Hemoglobin 10.5 g/dl (12.0-16.0); Mean Corpuscular Hemoglobin 31.3 pg (25.0-34.0); Mean Corpuscular Hgb Conc 35.4 g/dL (32.0-36.0); Mean Corpuscular Volume 88.4 fL (80.0-100.0); Platelet Count 190 K/uL (130-400); RDW Coefficient of Variation 14.6 % (11.5-14.5); RDW Standard Deviation 47.6 fL (36.4-46.3); Red Blood Count 3.36 M/uL (4.20-5.40); White Blood Count 10.37 K/ul (4.8-10.8)
[2024-07-05 06:46] LABS: Calcium 8.2 mg/dl (8.6-10.3); Creatinine Clr Calc Pharmacy 59.6 ml/min; Potassium 3.2 mmol/L (3.5-5.1)
[2024-07-05 07:28] VITALS: RESP 19
[2024-07-05 11:35] VITALS: TEMP 98.1; O2SAT 97
[2024-07-05 12:51] VITALS: BP 129/79; PULSE 93
--- NOTE | 2024-07-05 17:29 | Discharge Summary ---
Discharge Summary Date of Service July 05, 2024 Principal Dx & Hospital Course #1 = Principal Diagnosis (1) Severe sepsis: -as evidenced by tachycardia, fever, and source of stone -Klebsiella bacteremia noted -elevated lactic acid improved with fluids -s/p stent placement -on exam, cap refill present but reduced, appears dry on exam -Klebsiella sensitive to ceftriaxone Plan: -discharge home with ciprfloxacin (2) Hydronephrosis with urinary obstruction due to ureteral calculus: -s/p stent placement -appreciate urology consult (3) Complicated UTI (urinary tract infection): -2/2 stone -Klebsiella bacteremia noted (4) SAVANNA (acute kidney injury): -likely postrenal in setting of obstructive stone -also likely prerenal in setting of sepsis -resolved (5) Hypokalemia: -resolved (6) HTN (hypertension): -hold BP meds (7) Hyperlipidemia: -Continue atorvastatin (8) Prediabetes: Notes For Next Care Provider Patient is 63 year old female with PMH hypokalemia, prediabetes, HTN, dyslipidemia, history kidney stones presented to ER with c/o right flank pain x 2 days. On medicine, noted to be septic, stent placed by urology for obstructing stone. COurse complicated by Klebsiella bacteremia, treated with 5 days of IV abx. On 07/05/2024 patient medically stable for discharge home with abx. Needs f/u with urology and PCP. Medication Changes From Visit -cipro, zofran, short course zolpidem, oxycodone Admission HPI Per Admitting Provider Patient is 63 year old female with PMH hypokalemia, prediabetes, HTN, dyslipidemia, history kidney stones presented to ER with c/o right flank pain x 2 days. Patient reports 2 days ago started with right flank discomfort. Last night had fever 100.4 F. Yesterday flank pain started to radiate to right abdomen. Complains of nausea and dry heaves. Denies vomiting or diarrhea. Has not ate since yesterday. Denies dysuria, hematuria, urinary frequency, urinary retention, diarrhea, constipation, SOLIS, dizziness, syncope, vision changes, neck pain, CP, SOB, cough, sore throat, rhinorrhea, weakness, extremity edema, rashes. Discharge Exam Gen: A&O 3 NAD HEENT: NCAT, EOMI, not icteric. External ears normal. No rhinorrhea. Moist mucous membranes. Neck: Supple, full range of motion, no observable masses, No meningeal sign. Lungs: No Respiratory distress. CV: RRR, no edema. Abdomen: Soft, nondistended, No rebound tenderness. MSK: No joint swelling, no redness. Skin: No rashes, petechiae, lesions. Normal color per patient. Neuro: Normal Gait, Grossly intact. Psych: Appropriate for situation. Updated Medication List Medication Instructions Recorded Confirmed Type acetaminophen 500 mg tablet 500 - 1,000 mg PO Q6H PRN Pain 10/17/19 06/30/24 History (Tylenol Extra Strength) cholecalciferol (vitamin D3) 25 1,000 mcg PO QAM 10/17/19 06/30/24 History mcg (1,000 unit) tablet (Vitamin D3) cyanocobalamin (vitamin B-12) 1,000 mcg PO QAM 10/17/19 06/30/24 History 1,000 mcg tablet,extended release (Vitamin B-12 ER) fluticasone propionate 50 1 spray intranasal QAM 10/17/19 06/30/24 History mcg/actuation nasal spray,suspension (Flonase Allergy Relief) multivitamin 1 tab PO QAM 10/17/19 06/30/24 History omega 3-inf-yyi-fish oil 1,000 mg 1 cap PO HS 10/17/19 06/30/24 History (120 mg-180 mg) capsule (Fish Oil) potassium chloride 20 mEq 40 meq (2 x 20 mEq) PO QAM #180 04/19/24 06/30/24 Rx tablet,extended release tabs atorvastatin 40 mg tablet 40 mg PO DAILY 06/30/24 06/30/24 History hydrochlorothiazide 50 mg tablet 50 mg PO DAILY 06/30/24 06/30/24 History lifitegrast 5 % eye drops in a 5 drp OPB BID 06/30/24 06/30/24 History dropperette (Xiidra) metformin 500 mg tablet,extended 500 mg PO DAILY 06/30/24 06/30/24 History release 24 hr ciprofloxacin HCl 500 mg tablet 500 mg PO BID 9 days #18 tabs 07/05/24 Rx ondansetron 4 mg disintegrating 4 mg PO DAILY PRN nausea and 07/05/24 Rx tablet vomiting 4 days #10 tabs oxycodone 5 mg tablet 5 mg PO Q4 PRN pain #10 tabs 07/05/24 Rx tamsulosin 0.4 mg capsule 0.4 mg PO HS #30 caps 07/05/24 Rx zolpidem 5 mg tablet 5 mg PO HS PRN insomnia #7 tabs 07/05/24 Rx Hospital Stay Data Consultations 06/30/24 14:19 Consult Urology Stat 06/30/24 14:29 ED Decision to Admit Stat 06/30/24 16:55 Consult Urology Routine Procedures Performed Operation Date: 06/30/24 09:40 Actual Procedures p Cystoscopy, Right Ureteral Stent Insertion(Right) - Ld Grider MD Diagnostic Imagining Performed 06/30/24 FL retrograde includes kub Routine 06/30/24 12:12 CT abd pelvis IV con only Stat 07/02/24 08:17 US Renal Bladder [US renal/blad retro comp] Urgent 07/03/24 17:29 CT abdomen pelvis wo/w con Urgent Pending Results Patient Have Any Pending Studies at Discharge: Yes Discharge Instructions Given to Patient (Per Discharging Provider) 1. Please finish course of antibiotics. 2. Please stay hydrated! 3. Follow up with PCP and urology Total Time Total Time Spent Total Time Spent (In Minutes): I spent a total of 35minutes in direct patient care, including [id number] time with the patient and/or family, reviewing medical records, ordering and reviewing diagnostic tests, and coordinating care with other healthcare providers. This time includes: history taking, physical examination, medical decision making, counseling, ECG interpretation, imaging interpretation, lab interpretation, orders, and education, excluding time spent in the performance of separately billed services.
== END 2024-07-05 13:32 | disposition home or self-care (01) | DRG 854 ==
LOC: ED 11:59 → OR 15:15 → SUATTDRO 15:16 → 2W 15:16 → OR 15:38 → 4W 07-01 10:47